=== PATIENT | male | born 1945 | race Caucasian/White ===

== ENCOUNTER 2021-06-01 11:08 | Outpatient (CLI) | payer MEDICARE, OTHER, SELFPAY ==
--- NOTE | 2021-06-01 11:30 | ECG_ITS ---
Measurements Intervals Dwarf Rate: 80 P: 146 MN: 135 QRS: 259 QRSD: 177 T: 64 QT: 444 QTc: 513 Interpretive Statements ELECTRONIC ATRIAL PACEMAKER ELECTRONIC VENTRICULAR PACEMAKER ABNORMAL ECG NO PREVIOUS ECG AVAILABLE FOR COMPARISON Electronically Signed On 06-01-2021 15:20:41 TELEMETRY TECHNICIAN by Ren Norton M.D.
[2021-06-01 12:30] LABS: Anion Gap 5 mmol/L (8-16); Blood Urea Nitrogen 17 mg/dL (9-20); Calcium 9.1 mg/dL (8.4-10.2); Carbon Dioxide 30 mmol/L (22-30); Chloride 103 mmol/L (98-107); Estimated Glomerular Filt Rate > 60; Glucose 169 mg/dL (65-110); Potassium 4.5 mmol/L (3.4-5.0); Sodium 138 mmol/L (137-145)
[2021-06-01 12:31] LABS: INR 1.3; Prothrombin Time 16.1 Seconds (11.1-14.7)
[2021-06-01 12:32] LABS: Partial Thromboplastin Time 34.3 SECONDS (22.3-36.8)
== END 2021-06-01 11:09 | disposition home or self-care (01) ==
LOC: ANHSURGERY 11:18
PROVIDERS: PCP Internal Medicine; Visit Provider Urology
DX: Z01.818 Encounter for other preprocedural examination (principal); N40.0 Benign prostatic hyperplasia without lower urinary tract symptoms; I10 Essential (primary) hypertension; R94.31 Abnormal electrocardiogram [ECG] [EKG]
CPT/HCPCS: 36415; 80048; 85610; 85730; 87086; 93005

== ENCOUNTER 2021-06-13 16:27 | Observation (INO) | payer MEDICARE, OTHER, SELFPAY ==
[2021-05-29 15:55] VITALS: BMI 42.3
--- NOTE | 2021-05-29 16:21 | PC.NURSE ---
Report to the Outpatient Waiting Room, entrance under the green pavilion located off [facility], at time _11:30AM on date __06/12/21 . OR Time: __1:30PM . - You and your visitor will be asked a series of questions to screen for COVID 19 for your protection. - A mask is required within the hospital. Preoperative COVID Testing Requirements: No COVID Test needed if: (proof is required; if not received patient will have Rapid Test prior to entry) - Patient has received COVID Vaccine at least 14 days prior to procedure date or - Patient has positive COVID test result within last 90 days of surgery date. COVID Test needed if above criteria is not met If not COVID vaccinated a COVID test must be conducted within 72 hours of surgery and patient is asked to isolate self from time of testing until procedure. You will go to the [facility] for your COVID testing. The [facility] site is located at the corner of [address] from [facility]. You will only be called if COVID results are positive and your surgeon may reschedule your elective surgery date. Patients may have clear liquids (water, carbonated beverages, clear teas, apple juice) until 3 hours prior to surgery with a maximum of 20 ounces. - No food from midnight until time of surgery - Infants may have breast milk until 4 hours before surgery, formula 6 hours prior to surgery. - Children will be allowed to drink immediately following surgery. If applicable, please bring a bottle or sippy cup to assist with drinking. Juice, water, soda, and popsicles are readily available. For infants on formula, please bring formula the day of surgery. Pacifiers are allowed. Take the following medications with a SIP of water the morning of surgery: __AMLODIPINE, CARVEDILOL, SOTALOL, 1/2 DOSE INSULIN(5 UNITS) Medications to discontinue per physician HOLD ELIQUIS PER DR ROSEN-PATIENT CALLING OFFICE Date to take last dose Please no make-up, nail occitan, hairspray, perfume, deodorant, or body powder the day of surgery. No jewelry (including any body piercings) or valuables the day of surgery, leave them at home. Please take a shower or bath the night before, or the morning of, surgery with an antibacterial soap. Wear comfortable, loose fitting clothing. Children are encouraged to wear pajamas. - Jewelry must be removed prior to entering the operating room. Rings and piercings that are not removed may be cut off. - The hospital will not accept responsibility for valuables. - Please leave all valuables, including medications, at home the day of surgery. If you are going home after surgery, a licensed pizza driver must drive you home. - NO public transportation without another adult. - We recommend that an adult stay with you for 24 hours following discharge. - We also recommend that you do not drive, make important decision, drink alcoholic beverages, or take any drugs that were not prescribed by your health care provider for at least 24 hours after your discharge time. For Pediatric surgeries, we recommend two adults accompany the child home (only one inside the building at this time). One visitor will be allowed to accompany the patient into the hospital. Patients visitor will be instructed to remain with patient at all times or leave the building. We will allow the visitor to come back to the postoperative area when patient is ready. Follow any additional instructions given to you from your surgeon. Telephone instructions given to __PATIENT and asked if any additional questions and then verbalized understanding. Patient advised to call surgeon office or pre surgery nurse liaison [phone] if any additional questions.
[2021-06-12] VITALS (8 sets, daily range): BP systolic 135–171; BP diastolic 73–90; PULSE 79–81; RESP 14–20; TEMP 36–36.5; O2SAT 95–100
--- NOTE | 2021-06-12 13:03 | WPDHPUPDATE1 ---
History and Physical Update Update Date/Time: 06/12/21 13:03 History and Physical has been reviewed, including an updated exam of the patient. There are NO changes in the patient's condition. Risks, benefits, and alternatives have been discussed and questions answered. Patient agrees to proceed with procedure. Proceed with turp
[2021-06-12] MEDS: LACTATED RINGERS 1,000 ML 30 ML IV CONT (13:45)
--- NOTE | 2021-06-12 13:54 | P.PNAN_ITS ---
Anes - Initial Pre Proc Eval Procedure: Operation Date: 06/12/21 13:30 Proposed Procedures p Trans Urethral Resection Prostate - Dakota Holly MD Date/Time: 06/12/21 13:54 Surgeon: Dakota Holly MD Pre Op Diagnosis: bph Patient Data Age: 75 Gender: M Height: 1.75 m Weight: 130 kg Allergies Allergy/AdvReac Type Severity Reaction Status Date / Time Contrast Media Allergy Mild HIVES Uncoded 05/29/21 15:43 Home Medications Medication Instructions Recorded Confirmed Type allopurinol 100 mg PO QAM 05/29/21 05/29/21 History amlodipine 5 mg PO QAM 05/29/21 05/29/21 History apixaban [Eliquis] 5 mg PO BID 05/29/21 05/29/21 History atorvastatin 40 mg PO HS 05/29/21 05/29/21 History carvedilol 25 mg PO BID 05/29/21 05/29/21 History finasteride 5 mg PO HS 05/29/21 05/29/21 History fluticasone propionate 2 spray INTRANASAL DAILY PRN 05/29/21 05/29/21 History furosemide 40 mg PO QAM 05/29/21 05/29/21 History glimepiride 4 mg PO QACLUNCH 05/29/21 05/29/21 History insulin degludec [Tresiba 10 unit SUBCUT QAM 05/29/21 05/29/21 History FlexTouch U-100] lisinopril 20 mg PO BID 05/29/21 05/29/21 History metformin 500 mg PO BID 05/29/21 05/29/21 History montelukast 10 mg PO DAILY 05/29/21 05/29/21 History nitrofurantoin monohyd/m-cryst 100 mg PO BID 05/29/21 05/29/21 History sotalol 80 mg PO BID 05/29/21 05/29/21 History Patient hx anesthesia problems: none Family hx anesthesia problems: none Results Review: All pre-operative results and documents have been reviewed as part of the pre-operative evaluation. FOR[facility]LY [facility] Past Medical History Medical History (Updated 06/12/21 @ 13:56 by Steffen Rubin DO) Atrial fibrillation CHF (congestive heart failure) Diabetes type 2, controlled Hyperlipidemia Hypertension Pacemaker Social History Social History Smoking status: Never smoker Alcohol intake: current Drinks per week: 7 Substance use: never Living arrangements: with family Additional living arrangements comments: SON- LYNN Spiritual care concerns: No Anes - Eval Final PreProcedure Day of Procedure 06/12/21 13:54 Patient weight: morbidly obese Heart: regular rate and rhythm Lungs: clear to auscultation and normal air movement Airway: Mallampati scale class II Neurological: alert and oriented Last oral intake: >/= 8 hours ASA classification: IV Emergent: no Anesthetic plan: proceed Anesthesia type and monitoring: general LMA and standard monitoring Results Review: All pre-operative results and documents have been reviewed as part of the pre-operative evaluation. Informed Consent: The patient's anesthetic plan and its attendant risks and benefits were discussed with the patient/family/POA. Questions were solicited and answers provided to the satisfaction of the patient/family/POA.
[2021-06-12 14:24] LABS: INR 1.1; Prothrombin Time 13.7 Seconds (11.1-14.7)
[2021-06-12 14:24] LABS: Glucose Point of Care 97 mg/dl (65-105)
[2021-06-12] MEDS: ceFAZolin 3 GM/D5W 100 ML 100 ML IVPB (15:21)
[2021-06-12] MEDS: LIDOCAINE HCL 2% GEL UROJET 10 ML PKG MUCOUS MEM (16:22)
--- NOTE | 2021-06-12 16:25 | P.OP_ITS ---
Procedure Note - Detailed Date of Procedure 06/12/21 Pre-op Diagnosis bph Post-op Diagnosis Same Procedure Performed Transurethral resection of prostate, urethral dilation Surgeon Dakota Holly MD Anesthesia General Description of Procedure Patient is taken to the operative suite and correctly identified. Once anesthesia was obtained was placed in dorsal lithotomy position and prepped and draped usual sterile fashion. Urethra was dilated up to 28 Hungarian. Twenty-four Hungarian resectoscope sheath was inserted in the bladder. He has marked trabeculation. Both ureteral orifices were visualized at all times. He has a fairly good sized median lobe. We took down the median lobe and then the lateral lobes from the bladder neck to the verumontanum. There appeared to be an open prostatic channel at termination. Hemostasis was achieved using electrocautery. Prostatic chips were sent for pathologic review. 2% viscous lidocaine was inserted into the urethra. Twenty-four Hungarian [address] was then placed and inflated with 30 cc of saline. This was connected to continuous bladder irrigation and patient is taken recovery stable condition. Estimated Blood Loss 50 Drains Yes Packing No Pathology Yes Complications No immediate complications Condition Stable Disposition PACU
[2021-06-12 16:55] LABS: Glucose Point of Care 82 mg/dl (65-105)
[2021-06-12] MEDS: DOCUSATE SODIUM 100 MG CAPSULE PO (18:01)
[2021-06-13] VITALS (9 sets, daily range): BP systolic 149–170; BP diastolic 63–90; PULSE 80–81; RESP 16–20; TEMP 36.1–36.7; O2SAT 94–100
[2021-06-13 06:04] LABS: Hematocrit 42.8 % (42.0-52.0); Hemoglobin 14.2 g/dL (14.0-18.0)
[2021-06-13 06:16] LABS: Anion Gap 5 mmol/L (8-16); Blood Urea Nitrogen 14 mg/dL (9-20); Calcium 8.5 mg/dL (8.4-10.2); Carbon Dioxide 28 mmol/L (22-30); Chloride 103 mmol/L (98-107); Estimated CRCL calculation 85 ml/min; Estimated Glomerular Filt Rate > 60; Glucose 141 mg/dL (65-110); Potassium 4.5 mmol/L (3.4-5.0); Sodium 136 mmol/L (137-145)
--- NOTE | 2021-06-13 07:50 | WPDANESPN ---
Anes - Prog Note Post-Op Date/Time: 06/13/21 07:50 Cardiovascular status: normal Respiratory status: normal Airway patency: baseline Mental status: baseline Post-Op hydration status: normal Vital Signs: Last Vital Signs Temp 98.1 F 06/13/21 04:18 Pulse 81 06/13/21 04:18 Resp 20 06/13/21 04:18 BP 152/73 H 06/13/21 04:18 Pulse Ox 98 06/13/21 04:18 Pain Score (VAS): 04/02 I/O: Intake & Output 06/12/21 06/12/21 06/13/21 15:59 23:59 07:59 Intake Total 100 700 100 Output Total 2100 2400 Balance 100 -1400 -2300 Laboratory Tests 06/13/21 05:31 06/13/21 05:31 06/12/21 06/12/21 06/12/21 13:38 14:19 16:44 Hgb Hct PT 13.7 INR 1.1 Sodium Potassium Chloride Carbon Dioxide Anion Gap BUN Creatinine Estim Creat Clear Calc Estimated GFR Glucose POC Capillary Glucose 97 82 Calcium 06/13/21 06/13/21 05:31 05:31 Hgb 14.2 Hct 42.8 PT INR Sodium 136 L Potassium 4.5 Chloride 103 Carbon Dioxide 28 Anion Gap 5 L BUN 14 Creatinine 0.90 Estim Creat Clear Calc 85 Estimated GFR > 60 Glucose 141 H POC Capillary Glucose Calcium 8.5 Post-procedural complaints: none Patient Feedback: Patient satisfied with anesthetic care.
[2021-06-13] MEDS: DOCUSATE SODIUM 100 MG CAPSULE PO ×2 (08:43→17:10)
[2021-06-13 12:05] LABS: Glucose Point of Care 115 mg/dl (65-105)
[2021-06-13] MEDS: SOTALOL HCL 80 MG TABLET PO ×2 (12:56→20:33)
[2021-06-13] MEDS: carvediloL 25 MG TABLET PO ×2 (12:58→20:32)
[2021-06-13] MEDS: amLODIPine BESYLATE 5 MG TABLET PO (12:58)
[2021-06-13] MEDS: lisinopriL 20 MG TABLET PO ×2 (12:58→20:32)
[2021-06-13] MEDS: GLIMEPIRIDE 2 MG TABLET 4 MG PO (12:58)
[2021-06-13] MEDS: MONTELUKAST SODIUM 10 MG TABLET PO (12:58)
[2021-06-13] MEDS: FUROSEMIDE 40 MG TABLET PO (12:58)
[2021-06-13] MEDS: ONDANSETRON INJ 4 MG/2 ML VIAL IV PUSH (13:10)
[2021-06-13] MEDS: CEPHALEXIN 500 MG CAPSULE PO ×3 (13:12→20:32)
--- NOTE | 2021-06-13 15:49 | WPDUROPN2 ---
Progress Note: A&P Assessment and Plan (1) BPH (benign prostatic hyperplasia): Code(s): N40.0 - Benign prostatic hyperplasia without lower urinary tract symptoms Status: Acute (2) Gross hematuria: Code(s): R31.0 - Gross hematuria Status: Acute Assessment and Plan: Continue CBI until urine is clear, then wean to off. If bleeding starts again, re-start CBI. (3) Vomiting: Code(s): R11.10 - Vomiting, unspecified Status: Acute Assessment and Plan: Ok to give Ondansetron PRN, eat small light meals and continue IV fluids for now, until PO intake increases. Will keep overnight and re-assess tomorrow. Subjective Subjective Date/Time Seen: 06/13/21 15:49 POD #1 TURP and urethral dilation Patient is doing well tolerating pain. He is having some nausea and vomiting this afternoon as well as gross hematuria on CBI. Review of Systems Cardiovascular: Cardiovascular: Denies chest pain Respiratory: Respiratory: Reports no additional respiratory complaints Gastrointestinal: Gastrointestinal: Denies abdominal pain, Reports nausea and Reports vomiting Genitourinary: Genitourinary: Reports hematuria and Denies flank pain Exam Resp: Effort & Inspection: normal respiratory effort Cardio: Rate: regular rate GI: GI Palp: Yes Soft to palpation and No Tenderness to palpation present (GI) : General: Yes no CVA tenderness Urinary Catheter: Urinary Catheter: patent and draining and urine red Extrem: General: no edema Objective Data Vital Signs Vital Signs: Vital Signs - 24 hr 06/12/21 16:33 06/12/21 16:45 06/12/21 17:00 Temperature 97.5 F L Pulse Rate 79 80 80 Respiratory Rate 16 16 14 Blood Pressure 135/88 137/90 141/86 H Pulse Oximetry 100 100 98 06/12/21 17:15 06/12/21 19:18 06/12/21 20:18 Temperature 96.8 F L 96.8 F L Pulse Rate 80 80 80 Respiratory Rate 16 16 16 Blood Pressure 136/90 169/86 H 169/86 H Pulse Oximetry 96 96 96 06/12/21 23:25 06/13/21 04:18 06/13/21 10:30 Temperature 97.7 F 98.1 F 97.0 F L Pulse Rate 81 81 80 Respiratory Rate 20 20 20 Blood Pressure 171/73 H 152/73 H 170/90 H Pulse Oximetry 95 98 100 06/13/21 12:56 06/13/21 12:58 06/13/21 14:30 Temperature 97.9 F Pulse Rate 81 81 80 Respiratory Rate 18 Blood Pressure 160/74 H Pulse Oximetry 96 Intake/Output Intake/Output: Intake & Output 06/10/21 06/11/21 06/12/21 06/13/21 23:59 23:59 23:59 23:59 Intake Total 800 700 Output Total 2100 2400 Balance -1300 -1700 Meds/Results Medications: Active Medications Generic Name Dose Route Start Last Admin Trade Name Freq PRN Reason Stop Dose Admin Hydrocodone Bitart/Acetaminophen 1 tab 06/12/21 16:30 Hydrocodone/Acetaminophen (*Crx) 5-325 Mg Tablet PO Q4H PRN Pain Rated 1-6 Amlodipine Besylate 5 mg 06/13/21 11:30 06/13/21 12:58 Amlodipine Besylate 5 Mg Tablet PO 5 mg QAM MARIUSZ Administration Atorvastatin Calcium 40 mg 06/13/21 21:00 Atorvastatin 40 Mg Tablet PO HS MARIUSZ Carvedilol 25 mg 06/13/21 11:30 06/13/21 12:58 Carvedilol 25 Mg Tablet PO 25 mg Q12HR MARIUSZ Administration Cephalexin HCl 500 mg 06/13/21 13:00 06/13/21 13:12 Cephalexin 500 Mg Capsule PO 500 mg QID MARIUSZ Administration Dextrose 12.5 gm 06/13/21 11:58 Dextrose 50% 25 Gm/50 Ml Syringe IV PUSH PRN PRN Hypoglycemia Protocol Docusate Sodium 100 mg 06/12/21 17:00 06/13/21 08:43 Docusate Sodium 100 Mg Capsule PO 100 mg BID MARIUSZ Administration Fluticasone Propionate 2 spray 06/13/21 11:30 Fluticasone Propionate 0.05% Na Spr 16 Gm Btl (*Bkc) NASAL DAILY PRN Congestion Furosemide 40 mg 06/13/21 11:30 06/13/21 12:58 Furosemide 40 Mg Tablet PO 40 mg QAM MARIUSZ Administration Glimepiride 4 mg 06/13/21 12:00 06/13/21 12:58 Glimepiride 2 Mg Tablet PO 4 mg NOON MARIUSZ Administration Glucagon 1 mg 06/13/21 11:58 Glucagon
[2021-06-13 16:40] LABS: Glucose Point of Care 146 mg/dl (65-105)
[2021-06-13] MEDS: metFORMIN HCL XR 500 MG TAB.SR.24H PO (17:08)
[2021-06-13] MEDS: ATORVASTATIN 40 MG TABLET PO (20:32)
[2021-06-13 21:14] LABS: Glucose Point of Care 119 mg/dl (65-105)
[2021-06-14 00:41] VITALS: BP 135/72; PULSE 83; RESP 18; TEMP 36.6; O2SAT 96
[2021-06-14 04:00] VITALS: BP 151/70; PULSE 80; RESP 16; TEMP 36.2; O2SAT 93
[2021-06-14 07:41] LABS: Glucose Point of Care 151 mg/dl (65-105)
[2021-06-14 08:00] VITALS: BP 141/72; PULSE 80; RESP 12; TEMP 36.6; O2SAT 96
[2021-06-14] MEDS: CEPHALEXIN 500 MG CAPSULE PO ×2 (08:26→12:00)
[2021-06-14] MEDS: metFORMIN HCL XR 500 MG TAB.SR.24H PO (08:26)
[2021-06-14 08:27] VITALS: PULSE 79
[2021-06-14] MEDS: amLODIPine BESYLATE 5 MG TABLET PO (08:27)
[2021-06-14] MEDS: carvediloL 25 MG TABLET PO (08:27)
[2021-06-14 08:28] VITALS: PULSE 79
[2021-06-14] MEDS: lisinopriL 20 MG TABLET PO (08:28)
[2021-06-14] MEDS: FUROSEMIDE 40 MG TABLET PO (08:28)
[2021-06-14] MEDS: SOTALOL HCL 80 MG TABLET PO (08:28)
[2021-06-14] MEDS: MONTELUKAST SODIUM 10 MG TABLET PO (08:28)
[2021-06-14] MEDS: DOCUSATE SODIUM 100 MG CAPSULE PO (08:30)
[2021-06-14 10:00] VITALS: BP 138/73; PULSE 80; RESP 12; TEMP 36.6; O2SAT 96
[2021-06-14 11:40] LABS: Glucose Point of Care 129 mg/dl (65-105)
[2021-06-14] MEDS: GLIMEPIRIDE 2 MG TABLET 4 MG PO (11:51)
--- NOTE | 2021-06-14 13:17 | PC.NURSE ---
On 06/14/21, the student, [Lexa Brady, Mick Bai], provided care and completed Slide documentation on this patient. I have reviewed the student's documentation and agree with the findings.
--- NOTE | 2021-06-14 13:29 | WPDUROPN2 ---
Progress Note: A&P Assessment and Plan (1) BPH (benign prostatic hyperplasia): Code(s): N40.0 - Benign prostatic hyperplasia without lower urinary tract symptoms Status: Acute Assessment and Plan: Ok to discharge home with mabry, ok to attch leg bag. Patient to f/u on Friday for cath removal. (2) Gross hematuria: Code(s): R31.0 - Gross hematuria Status: Acute Assessment and Plan: Resolved (3) Vomiting: Code(s): R11.10 - Vomiting, unspecified Status: Acute Assessment and Plan: Resolved. Subjective Subjective Date/Time Seen: 06/14/21 13:29 POD#2 TUPR with urethral dilation. Urine has cleared off CBI overnight. His nausea and vomiting has also resolved. He is managing pain, diet and activity well. Review of Systems Cardiovascular: Cardiovascular: Denies chest pain Respiratory: Respiratory: Reports no additional respiratory complaints Gastrointestinal: Gastrointestinal: Denies abdominal pain, Denies nausea and Denies vomiting Genitourinary: Genitourinary: Denies hematuria, Denies flank pain and Denies testicular pain Exam Resp: Effort & Inspection: normal respiratory effort Cardio: Rate: regular rate GI: GI Palp: Yes Soft to palpation and Yes Tenderness to palpation present (GI) : General: Yes no CVA tenderness Urinary Catheter: Urinary Catheter: patent and draining and urine clear Extrem: General: no edema Objective Data Vital Signs Vital Signs: Vital Signs - 24 hr 06/13/21 14:30 06/13/21 18:10 06/13/21 20:18 Temperature 97.9 F 98.0 F 97.3 F L Pulse Rate 80 80 80 Respiratory Rate 18 16 16 Blood Pressure 160/74 H 150/63 H 149/73 H Pulse Oximetry 96 95 94 06/13/21 20:32 06/13/21 20:33 06/14/21 00:41 Temperature 97.8 F Pulse Rate 80 80 83 Respiratory Rate 18 Blood Pressure 135/72 Pulse Oximetry 96 06/14/21 04:00 06/14/21 08:00 06/14/21 08:27 Temperature 97.1 F L 97.8 F Pulse Rate 80 80 79 Respiratory Rate 16 12 Blood Pressure 151/70 H 141/72 H Pulse Oximetry 93 96 06/14/21 08:28 06/14/21 10:00 Temperature 97.8 F Pulse Rate 79 80 Respiratory Rate 12 Blood Pressure 138/73 Pulse Oximetry 96 Intake/Output Intake/Output: Intake & Output 06/11/21 06/12/21 06/13/21 06/14/21 23:59 23:59 23:59 23:59 Intake Total 800 1640 630 Output Total 2100 3800 900 Balance -1300 -2160 -270 Labs Labs: Laboratory Results - last 24 hr 06/13/21 06/13/21 06/14/21 16:38 20:39 07:37 POC Capillary Glucose 146 H 119 H 151 H 06/14/21 11:37 POC Capillary Glucose 129 H
--- NOTE | 2021-06-14 14:29 | PM.DS ---
DS: Admitting Diagnosis Discharge Date 06/14/21 Admitting Diagnosis BPH, urethral dilation DS: Discharge Diagnosis Discharge Diagnosis (1) BPH (benign prostatic hyperplasia): Code(s): N40.0 - Benign prostatic hyperplasia without lower urinary tract symptoms Status: Acute DS: Summary Hospital Course Hospital Course: see note below Time Spent with Patient Time attestation: Total time spent providing and/or coordinating discharge services:30 minutes Pre-OP Diagnosis: BPH, Urethral Diagnosis Post Op Diagnosis: BPH, Urethral Diagnosis The patient underwent a TURP and urethral dilation on 06/12/[address] Holly. He tolerated the procedure well and went to recovery in stable condition, then to the floor for further observation. On POD#1 he endured gross hematuria on CBI, and some post op nausea and vomiting. Both subsided overnight last night. Urine is now clear off CBI and his nausea/vomiting is resolved. He will be discharged home to follow up on Friday for a catheter removal. He will resume a diet as tolerated, activity as tolerated, no straining, and home meds except his anti-coagulant which he will hold until Friday's appointment after his catheter removal. He will call the office or go to the ER if he experiences any post op bleeding, fevers, or a catheter that isn't draining. Exam Resp: Effort & Inspection: normal respiratory effort Cardio: Rate: regular rate GI: GI Palp: Yes Soft to palpation and No Tenderness to palpation present (GI) : General: Yes no CVA tenderness Urinary Catheter: Urinary Catheter: patent and draining and urine clear Extrem: General: no edema DS: Data Data Completed and Pending Completed studies during hospitalization: Pending at discharge 06/12/21 15:49 Surgical [PTH] Routine Labs on day of discharge: Labs from last 24 hours 06/14/21 06/14/21 06/13/21 11:37 07:37 20:39 POC Capillary Glucose 129 H 151 H 119 H 06/13/21 16:38 POC Capillary Glucose 146 H Discharge Plan Discharge Attending physician on discharge: Dakota Holly Discharging Clinician: Yasmeen Preston Anticipated Discharge Date/Time: 06/14/21 10:16 Patient Disposition: Home, Self-Care Activity: may shower Diet: as tolerated Discharge Instructions: You will follow up Friday06/18/21 at 10:30am with Yasmeen SCHERER for your catheter removal. Call the office or go to the ER if you develop blood in your urine, a fever or your catheter stops draining. Do not lift >20lbs or do any strenuous exercise for 2-[address] until after your catheter is removed if at all possible. Patient Instructions: Antibiotic Form Stand Alone Forms: General Discharge Information Follow-up/Referrals: Dakota Holly MD [Physician] - Discharge Medications: New hyoscyamine sulfate [Anaspaz] 0.125 mg Tablet,Disintegrating 0.125 mg sublingual Q6H PRN (Reason: Bladder Spasm) Qty: 20 RF: 0 cephalexin 500 mg Capsule 500 mg PO BID 5 Days Qty: 10 RF: 0 hydrocodone-acetaminophen 5-325 mg tablet 1 tablet PO Q4H PRN (Reason: pain) Qty: 20 RF: 0 Continued furosemide 40 mg tablet 40 mg PO QAM RF: 0 atorvastatin 40 mg tablet 40 mg PO HS RF: 0 carvedilol 25 mg tablet 25 mg PO BID RF: 0 sotalol 80 mg tablet 80 mg PO BID RF: 0 lisinopril 20 mg tablet 20 mg PO BID RF: 0 amlodipine 5 mg tablet 5 mg PO QAM RF: 0 allopurinol 100 mg tablet 100 mg PO QAM RF: 0 glimepiride 4 mg tablet 4 mg PO QACLUNCH RF: 0 montelukast 10 mg tablet 10 mg PO DAILY RF: 0 fluticasone propionate 50 mcg/actuation spray,suspension 2 spray INTRANASAL DAILY PRN (Reason: Congestion) RF: 0 metformin 500 mg tablet extended release 24 hr 500 mg PO BID RF: 0 finasteride 5 mg tablet 5 mg PO HS RF: 0 Tresiba FlexTouch U-100 100 unit/mL (3 mL) insulin pen 10 unit SUBCUT QAM RF: 0 Held
== END 2021-06-14 12:43 | disposition home or self-care (01) ==
LOC: ANHSURGERY 16:42 → ANH2MED 16:43
PROVIDERS: Admitting Provider Urology; PCP Internal Medicine; Visit Provider Urology
PROC: 0VT08ZZ Resection of Prostate, Via Natural or Artificial Opening Endoscopic (ICD-10-PCS; CPT 52601; principal; 2021-06-12 13:30)
DX: N40.1 Benign prostatic hyperplasia with lower urinary tract symptoms (principal); R35.0 Frequency of micturition; R97.20 Elevated prostate specific antigen [PSA]; I10 Essential (primary) hypertension; R11.10 Vomiting, unspecified; N28.89 Other specified disorders of kidney and ureter; Z79.899 Other long term (current) drug therapy
CPT/HCPCS: 52601; 36415; 80048; 82948; 85014; 85018; 85610; 88305; A9270; G0378; J0690; J1100; J2405; J2704; J3010; J7120

== ENCOUNTER 2021-08-14 09:54 | Outpatient (CLI) | payer MEDICARE, OTHER, SELFPAY ==
--- NOTE | 2021-08-14 11:15 | NEURO_ITS ---
Impression: # Complains of numbness of anterior thigh on right. Known diabetic. # Sensory neuropathy. # Right thigh could not be tested; could be related to neuropathy involving lateral cutaneous nerve of thigh. # Needle/EMG exam not requested. Nerve Conduction Studies Anti Sensory Summary Table Stim Site NR Peak (ms) P-T Amp (?V) Site1 Site2 Delta-P (ms) Dist (cm) Dawson (m/s) Left Sup Fibular Anti Sensory (Ant Lat Mall) NO RESPONSE 14 cm NR 14 cm Ant Lat Mall 16.0 Right Sup Fibular Anti Sensory (Ant Lat Mall) NO RESPONSE 14 cm NR 14 cm Ant Lat Mall 16.0 Left Sural Anti Sensory (Lat Mall) NO RESPONSE Calf NR Calf Lat Mall 16.0 Right Sural Anti Sensory (Lat Mall) NO RESPONSE Calf NR Calf Lat Mall 16.0 Motor Summary Table Stim Site NR Onset (ms) O-P Amp (mV) Site1 Site2 Delta-0 (ms) Dist (cm) Dawson (m/s) Left Peroneal Motor (Vastus Med) Ankle 4.5 1.4 Popit Ankle 8.8 39.0 44 Popit 13.3 1.7 Right Peroneal Motor (Vastus Med) Ankle 4.4 1.9 Popit Ankle 9.8 39.0 40 Popit 14.2 1.7 Left Tibial Motor (Abd Sneed Brev) Ankle 4.9 1.9 Knee Ankle 10.5 43.0 41 Knee 15.4 1.3 Right Tibial Motor (Abd Sneed Brev) Ankle 4.6 3.2 Knee Ankle 9.3 42.0 45 Knee 13.9 3.3 F Wave Studies NR F-Lat (ms) L-R F-Lat (ms) Left Peroneal (Mrkrs) (EDB) 54.40 0.25 Right Peroneal (Mrkrs) (EDB) 54.65 0.25 Left Tibial (Mrkrs) (Abd Hallucis) 55.75 0.20 Right Tibial (Mrkrs) (Abd Hallucis) 55.95 0.20 MTDD
== END 2021-08-14 09:55 | disposition home or self-care (01) ==
LOC: ANHNEURO 09:55
PROVIDERS: PCP Internal Medicine; Visit Provider Internal Medicine
DX: G62.9 Polyneuropathy, unspecified (principal)
CPT/HCPCS: 95910

== ENCOUNTER 2022-01-23 11:08 | Outpatient (RCR) | payer MEDICARE, OTHER, SELFPAY ==
--- NOTE | 2022-01-23 12:33 | PTOPEVAL1 ---
Assessment and note entered by Mary Granger, PT Evaluation Information Assessment Status Evaluation Diagnosis L Sciatica Onset 01/18/22 Subjective Information Cristi reports he started having L buttock pain about 6-7 months ago. He notes the pain has become more frequent. He notes pain occurs with sitting or driving for long periods. He notes the pain goes away when he stands up, uses heat, or makes a fist and puts pressure on the painful area. He states he needs a left knee replacement though and he can't stand too long. He is having difficulty laying on his left side which makes sleeping difficult. He has been sleeping in a recliner to get relief. Reported Pain Level Pain Score 6: Self Report Assessment PT Clinical Summary Cristi Broussard presents with left buttock pain that has gradually worsened over the last 6-7 months. He notes pain with prolonged sitting and driving as well as laying on his left side. He is having difficulty sleeping, sitting, and driving. He objectively demonstrates decreased lumbar AROM, decreased core strength, decreased hamstring and piriformis flexibility, and palpable tenderness on the left piriformis. Repeated flexion and extension does not change symptoms. He will benefit from skilled PT to address the above physical and functional limitations. Plan of Care Interventions Hot Pack/Cold Pack,Manual Therapy,Neuro Re- education,Patient/Caregiver Educati,Therapeutic Activities,Therapeutic Exercise PT Services Indicated Yes Treatment Frequency and 2 times a week for 10 visits Duration These treatments will address the objective and functional deficits as defined above. The patient will be advanced safely and appropriately in order for the patient to progress towards his/her prior level of function. Additional exercises will be introduced and as well as a comprehensive home exercise program upon discharge, if needed, ?to ensure carryover of functional gains achieved in the clinic. This treatment plan has been reviewed and agreement upon by the patient.
--- NOTE | 2022-03-05 11:50 | PTOPEVAL1 ---
Assessment and note entered by Mary Granger, PT Evaluation Information Assessment Status Discharge Diagnosis L Sciatica Onset 01/18/22 Subjective Information Cristi Broussard reports he is feeling better. He notes the pain does still come on in the evening after being up and doing stuff around the house. He is able to sit on a heating pad to relieve pain . He also notes pain if he crosses the left leg in . He feels he has improved 70-75% overall since initiating PT and that he can continue independently with his home exercises. Reported Pain Level Pain Score 2: Self Report Assessment PT Clinical Summary Cristi Broussard has completed 10 physical therapy sessions for left buttock pain. He is reporting a 70-75% overall improvement in pain and function since initiating PT. He still has pain in the evening and if he crosses his left leg in too long . He objectively demonstrates improved lumbar AROM with no pain elicited, improved hamstring and piriformis flexibility, resolved tenderness, and improved tolerance to daily activities. Plan of Care PT Services Indicated No These treatments will address the objective and functional deficits as defined above. The patient will be advanced safely and appropriately in order for the patient to progress towards his/her prior level of function. Additional exercises will be introduced and as well as a comprehensive home exercise program upon discharge, if needed, ?to ensure carryover of functional gains achieved in the clinic. This treatment plan has been reviewed and agreement upon by the patient.
== END 2022-03-05 13:31 | disposition home or self-care (01) ==
LOC: CHSPT 11:08
PROVIDERS: Visit Provider Internal Medicine
DX: M54.32 Sciatica, left side (principal)
CPT/HCPCS: 97110; 97140; 97161

== ENCOUNTER 2023-03-18 01:38 | Emergency (ER) | payer MEDICARE, OTHER, SELFPAY ==
[2023-03-18] VITALS (35 sets, daily range): BP systolic 109–154; BP diastolic 80–104; PULSE 77–95; RESP 20–22; TEMP 35.9–37.2; O2SAT 90–99
--- NOTE | ~2023-03-18 | CT_ITS ---
EXAMINATION: CT abdomen pelvis w con DATE: 03/18/2023 02:58 INDICATION: Abdominal pain and distention. TECHNIQUE: Computed tomography (CT) of the abdomen and pelvis was performed with 100 mL Omnipaque 350 intravenous contrast. Automated exposure control and iterative reconstruction technique were employe d. The dose-length product was 1594.63 mGy-cm. COMPARISON: CT abdomen and pelvis 05/17/2011 FINDINGS: The visualized portions of the lung bases demonstrate mild atelectasis and scarring. There is mild bronchiectasis bilaterally. There is a small right pleural effusion. There is a trace left pl eural effusion. Cardiomegaly is noted. There are coronary artery calcifications. No pericardial effus ion. There are pacer wires in right atrium, right ventricle, and coronary sinus. The liver and spleen are normal. There is a gallstone in the gallbladder, which is normal in size. The pancreas and adren al glands are normal. There are changes of ablation of right kidney. There is a 2.3 cm cyst in left k idney. The prostate is moderately enlarged. There is prominent fat in the inguinal canals that may be hernias. There is diverticulosis of the colon without evidence of diverticulitis. The appendix is no rmal. There is a small volume of ascites. There are a few scattered foci of free intraperitoneal gas. There is an ulcer of the distal gastric antrum. There are no pathologically enlarged lymph nodes. Th ere is severe lumbar spondylosis. Lumbar levoscoliosis is noted. There are bridging endplate osteophy corinne at multiple levels in the thoracic spine, consistent with diffuse idiopathic skeletal hyperostosi s (DISH). IMPRESSION: 1. Free intraperitoneal gas, consistent with perforated viscus. I discussed this finding with Dr. Maggi cartwright. 2. Small volume of ascites. 3. Ulcer of the distal gastric antrum. 4. Small right pleural effusion. Reviewed, dictated and finalized at location E. EWATER PROJECT MANAGER IMPRESSION: 1. Free intraperitoneal gas, consistent with perforated viscus. I discussed thi s finding with Dr. Buschling. 2. Small volume of ascites. 3. Ulcer of the distal gastric antrum. 4. Small right pleural effusion.
--- NOTE | 2023-03-18 01:43 | ECG_ITS ---
Measurements Intervals [place] Rate: 97 P: RI: 0 QRS: 259 QRSD: 181 T: 72 QT: 449 QTc: 573 Interpretive Statements ELECTRONIC VENTRICULAR PACEMAKER ABNORMAL RHYTHM ECG COMPARED TO ECG 06/01/2021 11:52:20 NO SIGNIFICANT CHANGES Electronically Signed On 03-18-2023 15:51:48 [employer] by Shaheen Sanchez M.D.
--- NOTE | 2023-03-18 01:43 | ED.GENADULT ---
HPI - General Adult General Chief complaint: Abdominal Pain Stated complaint: abdominal pain, distended abd History of Present Illness HPI narrative: Cristi is a 77M with a PMH of gout, HTN, HLD, diabetes, pacemaker that presented to the ED via EMS with abdominal pain and distension. He has had pain for a few days as well as worsening distension but over the last 4-5 hours it has become much worse. He has felt like he needs to belch or vomit but he only had 1 episode of non-bloody vomiting. He has not had a BM for 2 days and he has not felt like eating either. He states it is hard to breath as he is so distended he cannot take a deep breath. There is no chest pain or fevers. He reports an allergy to MRI contrast but not CT contrast. Related Data Home Medications Medication Instructions Recorded Confirmed allopurinol 100 mg tablet 100 mg PO QAM 05/29/21 03/18/23 amlodipine 5 mg tablet 5 mg PO QAM 05/29/21 03/18/23 apixaban 5 mg tablet (Eliquis) 5 mg PO BID 05/29/21 03/18/23 atorvastatin 40 mg tablet 40 mg PO HS 05/29/21 03/18/23 carvedilol 25 mg tablet 25 mg PO BID 05/29/21 03/18/23 furosemide 40 mg tablet 40 mg PO QAM 05/29/21 03/18/23 glimepiride 4 mg tablet 4 mg PO QACLUNCH 05/29/21 03/18/23 insulin degludec 100 unit/mL (3 10 unit subcut QAM 05/29/21 03/18/23 mL) subcutaneous pen (Tresiba FlexTouch U-100 insulin) lisinopril 20 mg tablet 20 mg PO BID 05/29/21 03/18/23 metformin 500 mg tablet,extended 500 mg PO BID 05/29/21 03/18/23 release 24 hr montelukast 10 mg tablet 10 mg PO DAILY 05/29/21 03/18/23 sotalol 80 mg tablet 80 mg PO BID 05/29/21 03/18/23 Allergies Allergy/AdvReac Type Severity Reaction Status Date / Time Contrast Media Allergy Mild HIVES Uncoded 06/12/21 14:29 Review of Systems Review of Systems: All systems reviewed & are unremarkable except as noted in HPI and below PMFSH Past Medical History Medical History Atrial fibrillation CHF (congestive heart failure) Diabetes type 2, controlled Hyperlipidemia Hypertension Pacemaker Social History Social History Smoking status: Never smoker Alcohol intake: current Drinks per week: 7 Substance use: never Living arrangements: with family Additional living arrangements comments: SON- LYNN Spiritual care concerns: No Exam Const: General: cooperative, well developed, alert, awake and Physically active Orientation/consciousness: oriented to person, oriented to place and oriented to time HENMT: Head: normal to inspection, normocephalic and atraumatic Ears: hearing grossly normal bilaterally and external ears normal Face/Nose/Sinus: Normal external nose present Eyes: General: appearance normal, both eyes and all related structures Periorbital: periorbital findings normal Sclera: sclerae normal Pupils: Equal, round and reactive pupils present Neck: Neck: normal visual inspection Chest: Chest palpation & inspection: normal inspection of the chest Resp: Effort & Inspection: normal respiratory effort, able to speak in complete sentences and no respiratory distress Auscultation: clear to auscultation bilaterally Cardio: Jugular venous distension: no JVD Rate: regular rate Rhythm: regular rhythm GI: Inspection: distended GI Palp: Yes Rigid due to palpation Auscultation: Hypoactive bowel sounds present Other: Very distended abdomen that was diffusely TTP with hypoactive bowel sounds Back/Spine/Pelvis: Back: no CVA tenderness Skin: General skin exam: normal color and no rashes or lesions noted Neuro: General: oriented to person, oriented to place and oriented to time Cranial nerves: Yes Equal, round and reactive pupils present Extrem: General: normal to inspection Psych: Mental Status: mental status grossly normal Course Course Emergency Course: Ordered labs, IV, normal saline, UA, CT abd/pelvis w/ con
[2023-03-18] MEDS: SODIUM CHLORIDE 0.9% IV 1,000 ML 999 ML IV CONT (02:01)
[2023-03-18] MEDS: MORPHINE SULFATE (*CRX) 4 MG/ML INJ IV PUSH ×2 (02:02→04:50)
[2023-03-18 02:15] LABS: Basophils Absolute Auto 0.03 K/mm3 (0.00-0.10); Basophils Percent Auto 0.2 % (0.0-1.0); Eosinophils Absolute Auto 0.12 K/mm3 (0.02-0.50); Eosinophils Percent Auto 0.9 % (1.0-6.0); Hematocrit 49.9 % (37.0-46.0); Hemoglobin 16.1 g/dL (12.4-15.3); Immature Granulocyte Absolute 0.04 K/mm3 (0.00-0.00); Immature Granulocyte Percent A 0.3 % (0.0-0.0); Lymphocytes Percent Auto 8.5 % (18.0-42.0); Mean Corpuscular HGB Conc 32.3 g/dL (32.0-36.0); Mean Corpuscular Hemoglobin 31.6 pg (27.0-31.0); Monocytes Absolute Auto 0.64 K/mm3 (0.10-0.90); Neutrophils Percent Auto 85.1 % (50.0-70.0); Platelet Count Result 190 K/mm3 (150-420); Red Blood Count 5.09 M/mm3 (4.70-6.10); Red Cell Distribution Width 12.9 % (11.6-14.4); White Blood Count 12.9 K/mm3 (4.8-10.8)
[2023-03-18] MEDS: ONDANSETRON INJ 4 MG/2 ML VIAL (02:15)
[2023-03-18 02:29] LABS: INR 1.5; Prothrombin Time 15.9 Seconds (9.50-12.10)
[2023-03-18 02:34] LABS: Alanine Aminotransferase 23 U/L (16-63); Albumin Level 3.7 g/dL (3.4-5.0); Alkaline Phosphatase 75 U/L (46-116); Anion Gap 7 mmol/L (8-16); Aspartate Amino Transferase 17 U/L (15-37); Bilirubin,Total 1.6 mg/dL (0.00-1.00); Blood Urea Nitrogen 17 mg/dL (7-18); CRP < 0.5 mg/dL (0.0-0.9); Carbon Dioxide 30 mmol/L (21-32); Chloride 98 mmol/L (98-108); Estimated CRCL calculation 55 ml/min; Estimated Glomerular Filt Rate 52; Glucose 203 mg/dL (70-99); Lipase 20 U/L (16-77); Osmolality Calculated 287 mOsm/kg (285-295); Potassium 4.4 mmol/L (3.5-5.1); Sodium 135 mmol/L (136-145); Total Protein 7.6 g/dL (6.4-8.2); Troponin I 12.4 ng/L (0.00-60.4)
[2023-03-18 02:37] LABS: Lactic Acid Reflex 2.2 mmol/L (0.4-2.0)
[2023-03-18] MEDS: cefTRIAXone 2 GM/NS 100 ML 2 GM/100 ML BAG IVPB (03:58)
[2023-03-18] MEDS: metroNIDAZOLE 500 MG/ISO 100ML 500 MG/100 ML BAG 100 MG IVPB (04:21)
[2023-03-18 05:13] LABS: Reflex Lactic Acid Yes or No Add Lactic
[2023-03-18 06:12] LABS: Lactic Acid 2.1 mmol/L (0.4-2.0)
--- NOTE | 2023-03-18 06:16 | PC.NURSE ---
[phone] call from kobi proctorsenior data warehouse developer. wanting pt to have ng tube and needs icu bed. informed pt had already departed our facility prior to dr garrett speaking with dr bourgeois.
[2023-03-18 06:20] LABS: Appearance Urine Clear (Clear); Bilirubin Urine Negative (Negative); Blood Urine 3+ (Negative); Color Urine Yellow (Yellow); Glucose Urine UA Negative (Negative); Ketones Urine Negative (Negative); Leukocyte Esterase Ur Trace LEU/UL (Negative); Nitrate Urine Positive (Negative); Protein Urine Trace (Negative); Urobilinogen Urine 0.2 mg/dL (0.2-1.0); pH Urine 5.5 (5.0-8.0)
[2023-03-18 06:28] LABS: Add Urine Microscopic? YES; Bacteria Urine 3+ /hpf; Squamous Epithelial Cell Urine Occasional /hpf (Few)
[2023-03-18 06:58] LABS: Glucose Point of Care 184 mg/dl (65-105)
--- NOTE | 2023-03-18 07:08 | PC.NURSE ---
[phone] call from esthela, boiling house oiler , instructed that dr garrett needed to call senior specialist immediately. explained would give message to dr garrett to call dr bains [phone] directly as he is sitting at the desk. esthela stated, he needs to call immediately . message given to dr garrett .
--- NOTE | 2023-03-20 12:57 | PC.NURSE ---
Final urine culture report, mixed genital giana isolated, no UTI, No further action or treatment needed per ERP
== END 2023-03-18 06:11 | disposition short-term general hospital (02) ==
PROVIDERS: Emergency Provider Family Medicine; PCP Internal Medicine
DX: K63.1 Perforation of intestine (nontraumatic) (principal); K66.8 Other specified disorders of peritoneum; E11.9 Type 2 diabetes mellitus without complications; I48.91 Unspecified atrial fibrillation; I11.0 Hypertensive heart disease with heart failure; I50.9 Heart failure, unspecified; Z79.899 Other long term (current) drug therapy; Z79.4 Long term (current) use of insulin
CPT/HCPCS: 36415; 74177; 80053; 81001; 82948; 83605; 83690; 84484; 85025; 85610; 86140; 87086; 87088; 93005; 96361; 96365; 96367; 96375; 96376; 99285; J0696; J1836; J2270; J2405; J7030; Q9967

== ENCOUNTER 2023-03-18 07:20 | Inpatient (IN) | payer MEDICARE, OTHER, SELFPAY ==
[2023-03-18] VITALS (18 sets, daily range): BP systolic 98–152; BP diastolic 63–94; PULSE 9–98; RESP 9–24; TEMP 36.4–37.6; O2SAT 91–98; BMI 41.0
--- NOTE | ~2023-03-18 | XR_ITS ---
EXAMINATION: XR chest 1V portable DATE: 03/19/2023 07:57 INDICATION: Respiratory failure. TECHNIQUE: A single frontal view of the chest was obtained. COMPARISON: Chest single view 03/18/2023, CT abdomen and pelvis 03/18/2023 FINDINGS: There is no pneumonia, pleural effusion, or pneumothorax. Cardiomegaly is noted. There is a left chest pacer with leads in right atrium, right ventricle, and coronary sinus. The nasogastric tu be tip is beyond the inferior margin of the radiograph, but at least to the stomach. A right upper ex tremity peripherally inserted central venous catheter (PICC) is seen with tip in the superior vena ca va. IMPRESSION: 1. Cardiomegaly. Reviewed, dictated and finalized at location E. ESTATE SALES SUPERVISOR IMPRESSION: 1. Cardiomegaly.
--- NOTE | ~2023-03-18 | XR_ITS ---
EXAMINATION: XR chest 1V portable DATE: 03/18/2023 07:50 INDICATION: Sepsis. TECHNIQUE: A single frontal view of the chest was obtained. COMPARISON: CT abdomen and pelvis 03/18/2023 FINDINGS: There is mild atelectasis in the mid and lower lung zones. No pleural effusion or pneumotho rax. Cardiomegaly is noted. There is a left chest pacer with leads in right atrium, right ventricle, and coronary sinus. The nasogastric tube tip is beyond the inferior margin of the radiograph, but at least to the stomach. IMPRESSION: 1. Mild atelectasis in the mid and lower lung zones. 2. Cardiomegaly. Reviewed, dictated and finalized at location E. LOGIST
--- NOTE | ~2023-03-18 | XR_ITS ---
XR chest PICC line 03/18/2023 09:04 Indication: PICC line placement Procedure: AP portable chest Comparison: 03/18/2023 Findings: Cardiomegaly. NG tube in the stomach. No focal air space disease, pulmonary edema, pleural effusion or suspected pneumothorax. PICC line in the SVC. Pacemaker leads are stable. Left basilar at electasis. Impression: 1: Left basilar atelectasis. 2: Cardiomegaly. Reviewed, dictated and finalized at location L. GER OF SOFTWARE Impression: 1: Left basilar atelectasis. 2: Cardiomegaly.
--- NOTE | ~2023-03-18 | XR_ITS ---
EXAMINATION: XR abdomen gastric tube insert DATE: 03/18/2023 07:50 INDICATION: Nasogastric tube placement. TECHNIQUE: An upright view of the abdomen was obtained. COMPARISON: CT abdomen and pelvis 03/18/2023 FINDINGS: The lower abdomen is excluded. The nasogastric tube tip is in the stomach. There are pacer wires in right atrium, right ventricle, and coronary sinus. IMPRESSION: 1. Nasogastric tube tip in the stomach. Reviewed, dictated and finalized at location E. WARE SOFTWARE VERIFICATION ENGINEER
--- NOTE | ~2023-03-18 | XR_ITS ---
EXAMINATION: XR UGI water soluble wo kub DATE: 03/21/2023 09:09 INDICATION: Perforated gastric ulcer status post repair. TECHNIQUE: Water-soluble contrast was injected through the nasogastric tube. Radiographs of the esoph carmelo, stomach, and proximal small bowel were performed. Fluoroscopy exposure time was 0 minutes. The total number of images was 6. COMPARISON: CT abdomen and pelvis 03/18/2023 FINDINGS: There are pacer wires in right atrium and right ventricle and coronary sinus. The nasogastr ic tube tip is in the stomach. A surgical drain overlies the abdomen. The stomach and duodenum are un remarkable. There is no extraluminal contrast. There are airspace opacities at left lung base. Cardio megaly is noted. IMPRESSION: 1. No extraluminal leakage of contrast. 2. Airspace opacities at left lung base, consistent with atelectasis versus pneumonia. 3. Cardiomegaly. Reviewed, dictated and finalized at location A. ESTATE PROFESSIONAL IMPRESSION: 1. No extraluminal leakage of contrast. 2. Airspace opacities at left lung base, consistent with atelectasis versus pne umonia. 3. Cardiomegaly.
--- NOTE | 2023-03-18 06:57 | ADMGEN ---
This patient, Cristi Broussard, was admitted to Intensive Care Unit-3. Patient/family oriented to hospital policies and general routines including ID bracelet, bed and alarms, visiting hours, pain management, procedures, bathroom and other care routines, personal items, smoking policy, room service/diet, and visiting hours. Information on how to activate the Rapid Response Team has been discussed. Patient/Family are encouraged to report perceived risks to care and to ask questions if they do not understand what they are told or what they should do.
[2023-03-18] MEDS: ONDANSETRON INJ 4 MG/2 ML VIAL IV PUSH (08:03)
--- NOTE | 2023-03-18 08:03 | PM.IMHP ---
H&P: HPI History of Present Illness Date/Time: 03/18/23 08:03 Chief Complaint: Patient transferred from a [facility] Emergency Room with perforated viscus Narrative: He is a very pleasant 77 years old white male who is complaining of upper abdominal pain for the last 2-3 days. He came to the [facility] emergency room late last night. Workup was done which showed leukocytosis and CT scan showed free air consistent with perforated viscus. Patient was hemodynamically stable. He has be transferred to our hospital in the ICU for emergent surgical evaluation and to be taken to the OR for surgery. Review of Systems Review of Systems: 14 systems were reviewed with pertinent positives and negatives per HPI. Except as documented in the HPI/progress notes, all other systems were reviewed and are negative. All systems reviewed & are unremarkable except as noted in HPI and below PMFSH Past Medical History Medical History Atrial fibrillation CHF (congestive heart failure) Diabetes type 2, controlled Hyperlipidemia Hypertension Pacemaker Social History Social History Smoking status: Never smoker Alcohol intake: never Drinks per week: 7 Substance use: never Do You Feel Safe in your Home?: Yes Lack of Transportation: YES Lack of Food: Never True Current Housing: I Do Not Have Housing Concerned About Future Housing: No Difficulty Paying Gas/Electric Bills: No Difficulty Paying for Meds: No Currently Unemployed: No Education: High School Diploma/GED Difficulty w/ Childcare or Family Care: No Living arrangements: with family Additional living arrangements comments: SON- LYNN Spiritual care concerns: No Meds Home Medications and Allergies Home Medications Medication Instructions Recorded Confirmed Type allopurinol 100 mg tablet 100 mg PO QAM 05/29/21 03/18/23 History amlodipine 5 mg tablet 5 mg PO QAM 05/29/21 03/18/23 History apixaban 5 mg tablet (Eliquis) 5 mg PO BID 05/29/21 03/18/23 History atorvastatin 40 mg tablet 40 mg PO HS 05/29/21 03/18/23 History carvedilol 25 mg tablet 25 mg PO BID 05/29/21 03/18/23 History furosemide 40 mg tablet 40 mg PO QAM 05/29/21 03/18/23 History glimepiride 4 mg tablet 4 mg PO QACLUNCH 05/29/21 03/18/23 History insulin degludec 100 unit/mL (3 10 unit subcut QAM 05/29/21 03/18/23 History mL) subcutaneous pen (Tresiba FlexTouch U-100 insulin) lisinopril 20 mg tablet 20 mg PO BID 05/29/21 03/18/23 History metformin 500 mg tablet,extended 500 mg PO BID 05/29/21 03/18/23 History release 24 hr montelukast 10 mg tablet 10 mg PO DAILY 05/29/21 03/18/23 History sotalol 80 mg tablet 80 mg PO BID 05/29/21 03/18/23 History Allergies Allergy/AdvReac Type Severity Reaction Status Date / Time No Known Allergies Allergy Verified 03/18/23 08:13 Vital Signs Vital Signs - 24 hr 03/18/23 06:55 Temperature 36.4 C Pulse Rate 98 Respiratory Rate 24 H Blood Pressure 152/94 H Pulse Oximetry 92 Exam Narrative: PHYSICAL EXAMINATION: Vital signs: Please see the chart General physical exam: Morbidly obese patient, lying in bed, complains of abdominal pain and distended abdomen Head/eyes: Atraumatic, EOMI, PERRLA ENT: Moist mucous membranes, nasal passages clear Neck: Supple, full range of motion, trachea midline CVS: S1 + S2, regular rate and rhythm, no murmurs Respiratory: Bilaterally fair air entry in both lung ricardo, mild B/L crackles, symmetric chest expansion, no distress Abdomen: +++ distended abdomen,++ tenderness on palpation, bowel sounds +ve Extremities: No clubbing, no cyanosis, no edema, no calf tenderness Musculoskeletal: Moves all, adequate range of motion, no muscle spasms Skin: Warm, dry, no jaundice, no cyanosis Neurological: Awake, alert, oriented x 3, cranial nerves II-XII intact, no focal neurological defici
[2023-03-18] MEDS: PIPERACILLN/TAZ 3.375GM/NS50ML 3.375 GM/50 ML BAG IVPB ×3 (08:04→17:30)
[2023-03-18] MEDS: LACTATED RINGERS 1,000 ML 100 ML IV CONT ×2 (08:06→15:19)
[2023-03-18 08:43] LABS: Basophils Absolute Auto 0.1 K/mm3 (0.0-0.1); Basophils Percent Auto 0.4 % (0.2-1.2); Hematocrit 52.8 % (42.0-52.0); Hemoglobin 16.2 g/dL (14.0-18.0); Immature Granulocyte Absolute 0.04 K/mm3 (0.00-0.031); Immature Granulocyte Percent A 0.3 % (0-0.5); Lymphocytes Absolute Auto 0.67 K/mm3 (0.9-3.2); Mean Corpuscular HGB Conc 30.7 g/dl (32-36); Mean Corpuscular Hemoglobin 31.2 pg (26-34); Mean Corpuscular Volume 101.5 fl (80-100); Monocytes Absolute Auto 0.6 K/mm3 (0.1-0.6); Monocytes Percent Auto 4.3 % (2.6-8.5); Neutrophils Absolute Auto 12.2 K/mm3 (1.3-6.7); Platelet Count Result 153 k/mm3 (150-375); Red Cell Distribution Width 13.6 % (11.5-14.5); White Blood Count 13.5 K/mm3 (4.5-10.0)
[2023-03-18 08:54] LABS: INR 1.9; Partial Thromboplastin Time 31.8 SECONDS (22.3-36.8); Prothrombin Time 23.1 Seconds (11.1-14.7)
[2023-03-18 08:56] LABS: Lactic Acid Reflex 2.2 mmol/L (0.7-2.0)
[2023-03-18 08:56] LABS: Alanine Aminotransferase 20 U/L (6-50); Alkaline Phosphatase 71 U/L (38-126); Anion Gap 11 mmol/L (8-16); Aspartate Amino Transferase 19 U/L (17-59); Bilirubin,Total 1.7 mg/dL (0.2-1.3); Blood Urea Nitrogen 20 mg/dL (9-20); Calcium 10.4 mg/dL (8.4-10.2); Carbon Dioxide 28 mmol/L (22-30); Chloride 100 mmol/L (98-107); Creatine Kinase 31 U/L (55-170); Estimated CRCL calculation 73 ml/min; Estimated Glomerular Filt Rate > 60; Glucose 194 mg/dL (65-110); Potassium 5.1 mmol/L (3.4-5.0); Sodium 139 mmol/L (137-145)
[2023-03-18 08:58] LABS: CRP 1.3 mg/dL (<1.0); Lipase 114 U/L (23-300); Magnesium 1.8 mg/dL (1.6-2.3); Phosphorus 4.9 mg/dL (2.5-4.5)
--- NOTE | 2023-03-18 09:08 | WPDCNINT ---
Assessment and Plan Assessment and plan (1) Perforated abdominal viscus: Code(s): R19.8 - Other specified symptoms and signs involving the digestive system and abdomen Status: Acute Assessment and Plan: 03/18: Patient presented to the [facility] ER at [facility] with abdominal pain and distention along with nausea and vomiting. No bowel movements for 2 days prior to admission, no fevers or chills, had some difficulty breathing secondary to the abdominal distension -The initial reading by [employer] on the CT scan of the abdomen and pelvis stated gallbladder wall thickening and pericholecystic fluid consistent with acute cholecystitis. Patient was going to be admitted to the medical floor. - Revised reading of the CT scan of the abdomen and pelvis showed free intraperitoneal gas consistent with perforated viscus, ulcer of the distal gastric antrum, small volume ascites, small right pleural effusion. - Surgeons were notified at [facility] and patient was transferred to the ICU for further management. -discussed with surgery, patient will be taken to the ER this afternoon. - blood cultures have been obtained -started patient on Zosyn and vancomycin along with fluconazole -patient did take his Eliquis, INR is 1.9, surgery requested Kcentra to be given, which has been ordered -PICC line placed (2) Vomiting: Code(s): R11.10 - Vomiting, unspecified Status: Acute Assessment and Plan: NG tube was inserted with improvement in nausea and vomiting (3) Essential hypertension: Code(s): I10 - Essential (primary) hypertension Status: Acute Assessment and Plan: Blood pressures are stable, hold all antihypertensives patient is NPO (4) Diabetes mellitus type 2 in obese: Code(s): E11.69 - Type 2 diabetes mellitus with other specified complication; E66.9 - Obesity, unspecified Status: Acute Assessment and Plan: Accu-Cheks and sliding scale insulin (5) CHF (congestive heart failure): Qualifiers: Heart failure type: unspecified Heart failure chronicity: unspecified Qualified Code(s): I50.9 - Heart failure, unspecified Code(s): I50.9 - Heart failure, unspecified Status: Acute Assessment and Plan: Patient has a history of CHF not specified if diastolic or systolic -chest x-ray does not look volume overloaded, patient does have some mild edema in his lower extremity -will give IV fluids with caution (6) Atrial fibrillation: Code(s): I48.91 - Unspecified atrial fibrillation Status: Acute Assessment and Plan: History of atrial fibrillation status post pacemaker and defibrillator -currently rate controlled, paced rhythm Plan DVT prophylaxis: SCDs Stress ulcer prophylaxis: Protonix Nutrition: NPO Code Status: Full code Critical Care Time Spent: 51 minutes Discussed with patient at length regarding than code status, he would like to be a full code but does not want to be on machines for a prolonged amount of time. His son Lauri, would make decisions in case the patient is unable to make his own healthcare decisions. Bedside RN was present at this time. Patient is aware that he will be going for surgery today, 03/18 Due to a high probability of clinically significant, life threatening deterioration, the patient required my highest level of preparedness to intervene emergently and I personally spent this critical care time directly and personally managing the patient. This critical care time included obtaining a history; examining the patient; pulse oximetry; ordering and review of studies; arranging urgent treatment with development of a management plan; evaluation of patient's response to treatment; frequent reassessment; and discussions with other providers. It was exclusive of separately billable procedures and treating other patients and teaching time. Please see Assessment and Plan section and the rest of the no
[2023-03-18] MEDS: LIDOCAINE HCL 1% PF INJ 5 ML VIAL INFILTRATE (09:09)
[2023-03-18] MEDS: HUMAN PROTHROMBIN COMPLEX(PCC) 5,000 UNITS in PREMIXIV 0 ML 504 UNITS IV CONT (09:22)
[2023-03-18] MEDS: VANCOMYCIN 1,250 MG/NS 250 ML 1,250 MG/250 ML BAG 166.67 MG IVPB ×2 (09:23)
[2023-03-18] MEDS: PANTOPRAZOLE SODIUM IV 40 MG VIAL IV PUSH ×2 (09:24→20:33)
[2023-03-18 09:38] LABS: Hemoglobin A1C 6.8 % (<5.7)
[2023-03-18 09:47] LABS: Creatinine Urine 123.8 mg/dL
[2023-03-18] MEDS: LACTATED RINGERS 500 ML 999 ML IV CONT ×2 (09:51→10:48)
[2023-03-18 09:52] LABS: Potassium Urine Random 68.9 meq/L; Sodium Urine Random 34 meq/L
[2023-03-18] MEDS: FLUCONAZOLE 200 MG/NACL 100 ML 200 MG/100 ML BAG 100 MG IVPB (09:58)
[2023-03-18 10:37] LABS: Eosinophil Urine Rare % (None Seen); Urine Eos QC 2nd Tech Confirmed
--- NOTE | 2023-03-18 11:37 | WPDCN ---
Assessment and Plan Assessment and plan (1) Perforated abdominal viscus: Code(s): R19.8 - Other specified symptoms and signs involving the digestive system and abdomen Status: Acute Assessment and Plan: Patient appears to have a small perforation of his gastric antrum with some free air. He has been admitted to the [facility] intensive care unit. He will be hydrated and resuscitated. Nasogastric tube is now in place. Since he recently took liquids will give him some Kcentra. Will need to go to the operating room later this afternoon for a laparotomy and repair of the gastric ulcer. Patient understands agrees with this plan. Continue broad-spectrum IV antibiotics to include anti fungal coverage since this is a perforated gastric ulcer. HPI Data of Consult Date/Time: 03/18/23 11:37 Requesting Physician: Gale Carlos DO Primary Care Provider: Lucio Ray, Consult Narrative Reason for consult: Epigastric abdominal pain, perforated gastric ulcer and abdominal free air Narrative: Cristi Broussard is a 77 year old male who presented to the [facility] Emergency Room late last night. He had been having upper abdominal pain for last 2 to 3 days. Workup in the emergency room showed elevated white blood count [address]. He had a CT scan which initially was read out as being acute cholecystitis and it was requested that he be transferred [facility]. The CT scan was then by 2nd radiologist after the patient was in transit to [facility] and the finding was to be a perforated gastric antral ulcer with some free air. No evidence of acute cholecystitis with cholelithiasis was noted. Patient was hemodynamically stable. On arrival to [facility] he was then placed in intensive care unit. Nasogastric tube was placed. When I saw him in the intensive care unit he was fairly comfortable but having moderate tenderness to deep palpation epigastric region abdomen. No generalized peritoneal signs. His INR was 1.9. Eliquis and took his last dose last evening. He also has congestive heart failure and atrial fibrillation and a pacemaker in place. He is morbidly obese. He denies any prior history abdominal surgery. Review of Systems Review of Systems: The remainder of the review of systems to include constitutional, HEENT, cardiovascular, respiratory, GI, , integumentary, musculoskeletal, endocrine, immunologic, hematologic, psychiatric, and neurologic are all negative except for which is mentioned above in the HPI. [facility] Past Medical History Medical History Atrial fibrillation CHF (congestive heart failure) Diabetes type 2, controlled Hyperlipidemia Hypertension Pacemaker Social History Social History Smoking status: Never smoker Alcohol intake: never Drinks per week: 7 Substance use: never Do You Feel Safe in your Home?: Yes Lack of Transportation: YES Lack of Food: Never True Current Housing: I Do Not Have Housing Concerned About Future Housing: No Difficulty Paying Gas/Electric Bills: No Difficulty Paying for Meds: No Currently Unemployed: No Education: High School Diploma/GED Difficulty w/ Childcare or Family Care: No Living arrangements: with family Additional living arrangements comments: SON- LYNN Spiritual care concerns: No Meds Home Medications and Allergies Home Medications Medication Instructions Recorded Confirmed Type allopurinol 100 mg tablet 100 mg PO QAM 05/29/21 03/18/23 History amlodipine 5 mg tablet 5 mg PO QAM 05/29/21 03/18/23 History apixaban 5 mg tablet (Eliquis) 5 mg PO BID 05/29/21 03/18/23 History atorvastatin 40 mg tablet 40 mg PO HS 05/29/21 03/18/23 History carvedilol 25 mg tablet 25 mg PO BID 05/29/21 03/18/23 History furosemide 40 mg tablet 40 mg PO QAM 05/29/21 03/18/23 History g
--- NOTE | 2023-03-18 11:46 | WPDHPUPDATE1 ---
History and Physical Update Update Date/Time: 03/18/23 11:46 History and Physical has been reviewed, including an updated exam of the patient. There are NO changes in the patient's condition. Risks, benefits, and alternatives have been discussed and questions answered. Patient agrees to proceed with procedure.
[2023-03-18 11:53] LABS: Glucose Point of Care 147 mg/dl (65-105)
[2023-03-18] MEDS: CENTRAL LINE FLUSH 10 ML IV PUSH ×2 (14:02→20:33)
--- NOTE | 2023-03-18 15:50 | PC.NURSE ---
OR staff here to transport patient to pre-op. Pt. put onto their credit resolution representative.
[2023-03-18 16:01] LABS: Glucose Point of Care 128 mg/dl (65-105)
--- NOTE | 2023-03-18 16:13 | WPDANESEPPF ---
Anes - Initial Pre Proc Eval Procedure: Operation Date: 03/18/23 18:00 Proposed Procedures p Exploratory Laparotomy, Repair Gastric Ulcer - Mariano Pace MD Date/Time: 03/18/23 16:13 Surgeon: Gale Carlos DO Pre Op Diagnosis: Acute Cholecystitis Patient Data Age: 77 Gender: M Height: 1.75 m Weight: 126.1 kg Last Vital Signs Temp 37.3 C 03/18/23 11:46 Pulse 86 03/18/23 12:00 Resp 14 03/18/23 11:46 BP 131/88 03/18/23 11:46 Pulse Ox 96 03/18/23 11:46 O2 Del Method Nasal Cannula 03/18/23 08:00 O2 Flow Rate 2 03/18/23 08:00 Allergies Allergy/AdvReac Type Severity Reaction Status Date / Time No Known Allergies Allergy Verified 03/18/23 08:13 Home Medications Medication Instructions Recorded Confirmed Type allopurinol 100 mg tablet 100 mg PO QAM 05/29/21 03/18/23 History amlodipine 5 mg tablet 5 mg PO QAM 05/29/21 03/18/23 History apixaban 5 mg tablet (Eliquis) 5 mg PO BID 05/29/21 03/18/23 History atorvastatin 40 mg tablet 40 mg PO HS 05/29/21 03/18/23 History carvedilol 25 mg tablet 25 mg PO BID 05/29/21 03/18/23 History furosemide 40 mg tablet 40 mg PO QAM 05/29/21 03/18/23 History glimepiride 4 mg tablet 4 mg PO QACLUNCH 05/29/21 03/18/23 History insulin degludec 100 unit/mL (3 10 unit subcut QAM 05/29/21 03/18/23 History mL) subcutaneous pen (Tresiba FlexTouch U-100 insulin) lisinopril 20 mg tablet 20 mg PO BID 05/29/21 03/18/23 History metformin 500 mg tablet,extended 500 mg PO BID 05/29/21 03/18/23 History release 24 hr montelukast 10 mg tablet 10 mg PO DAILY 05/29/21 03/18/23 History sotalol 80 mg tablet 80 mg PO BID 05/29/21 03/18/23 History Laboratory Tests 03/18/23 03/18/23 03/18/23 08:31 08:32 09:30 WBC 13.5 H K/mm3 (4.5-10.0) RBC 5.20 M/mm3 (4.6-6.20) Hgb 16.2 g/dL (14.0-18.0) Hct 52.8 H % (42.0-52.0) MCV 101.5 H fl (80-100) MCH 31.2 pg (26-34) MCHC 30.7 L g/dl (32-36) RDW 13.6 % (11.5-14.5) Plt Count 153 k/mm3 (150-375) MPV 11.0 H fl (7.4-10.4) Immature Gran % (Auto) 0.3 % (0-0.5) Neut % (Auto) 90.0 H % (45.5-73.1) Lymph % (Auto) 5.0 L % (18.3-44.2) [place] % (Auto) 4.3 % (2.6-8.5) Eos % (Auto) 0.0 % (0-4.4) Baso % (Auto) 0.4 % (0.2-1.2) Lymph # (Auto) 0.67 L K/mm3 (0.9-3.2) [place] # (Auto) 0.6 K/mm3 (0.1-0.6) Eos # (Auto) 0.0 K/mm3 (0-0.3) Baso # (Auto) 0.1 K/mm3 (0.0-0.1) Abs Immat Gran (auto) 0.04 H K/mm3 (0.00-0.031) Absolute Neuts (auto) 12.2 H K/mm3 (1.3-6.7) Absolute Nucleated RBC 0.0 K/mm3 (0.0-0.012) Nucleated RBC % 0.0 % (0.0-0.2) PT 23.1 H Seconds (11.1-14.7) INR 1.9 APTT 31.8 SECONDS (22.3-36.8) Sodium 139 mmol/L (137-145) Potassium 5.1 H mmol/L (3.4-5.0) Chloride 100 mmol/L (98-107) Carbon Dioxide 28 mmol/L (22-30) Anion Gap 11 mmol/L (8-16) BUN 20 mg/dL (9-20) Creatinine 1.00 mg/dL (0.7-1.3) Estim Creat Clear Calc 73 ml/min Estimated GFR > 60 (59 - ) Glucose 194 H mg/dL (65-110) POC Capillary Glucose Hemoglobin A1c 6.8 H % (<5.7) Lactic Acid 2.2 H mmol/L (0.7-2.0) Calcium 10.4 H mg/dL (8.4-10.2) Phosphorus 4.9 H mg/dL (2.5-4.5) Magnesium 1.8 mg/dL (1.6-2.3) Total Bilirubin 1.7 H mg/dL (0.2-1.3) AST 19 U/L (17-59) ALT 20 U/L (6-50) Alkaline Phosphatase 71 U/L (38-126) Total Creatine Kinase 31 L U/L (55-170) C-Reactive Protein 1.3 H mg/dL (<1.0) Total Protein 7.0 g/dL (6.3-8.2) Albumin 4.0 g/dL (3.5-5.1) Lipase 114 U/L (23
[2023-03-18] MEDS: LACTATED RINGERS 1,000 ML 30 ML IV CONT (18:42)
--- NOTE | 2023-03-18 18:58 | W.PM.PROC2 ---
Procedure Note - Detailed Date of Procedure 03/18/23 Pre-op Diagnosis Perforated antral gastric ulcer Post-op Diagnosis Same Procedure Performed laparotomy and repair of gastric antral ulcer with modified Kvng patch Surgeon Mariano Pace MD Manager Culinary KALLIE Ling Anesthesia General Indications patient is a 77-year-old gentleman who presented to outside emergency room planning a to 3 day history of worsening epigastric abdominal pain. He did have some episodes of nausea vomiting. He has a history fibrillation and congestive heart failure has a pacemaker in place. He has never had abdominal surgery in the past. Workup in emergency room and this showed mildly elevated white blood cell count around 13,[address]. initially a CT scan abdomen pelvis was done showing what was initially thought to be acute cholecystitis. He was then transferred [facility]. Once he arrived [facility] the over read of the CT scan by our [facility] radiologist feel that patient did not have acute cholecystitis but actually had a perforated gastric antral ulcer. The patient was initially admitted to the intensive care unit where he was resuscitated. He also received reversal agents for Eliquis. He is being brought to the operating now for emergent laparotomy and repair of the gastric antral ulcer. Findings The patient had a small perforation of the anterior wall of the antrum just proximal to the pylorus. The defect measured approximately 4mm in diameter and was not bleeding. About a L of gastric contents which was all liquid with no particulate matter was found in the abdomen. This was suctioned away. No mass effect was noted upon palpation of the area the ulcer. Description of Procedure After informed consent was obtained patient was brought to the operating room was placed supine position and general endotracheal anesthesia was administered. The abdomen was then prepped and draped usual sterile fashion. A time-out was then performed correctly identifying the patient as well as procedure to be performed verifying that he was already on scheduled IV antibiotics. I then made a upper midline incision starting at the xiphoid process 6 and extending it caudally for about 10 to 15 cm. Dissection was carried down through the subcutaneous tissues and then the midline fascia was divided tender the epigastric region of the abdomen. Upon opening the peritoneum there was copious amounts of brownish fluid that was not particularly odorous and had no particular matter in it. I opened the fascia to mesh with the skin incision. I then suctioned out as much of the gastric fluid is I could then proceeded to explore the epigastric region the abdomen. I then identified the transverse colon the omentum and swept it towards the midportion of the abdomen. The right lobe of liver was identified and the gallbladder was identified. The body of the stomach was identified and traced distally to the antrum. In this area there was an inflamed area was around a small perforation on the anterior wall of the antrum measuring only about 4mm in diameter. The edges were pretty clean. No rolled edges and no mass effect associated with the perforation. I then proceeded to perform a modified Kvng patch repair of the perforated ulcer. Interrupted 3-0 PDS sutures were then placed full-thickness through the anterior wall of the antrum to approximate the edges and closed the defect without any tension. Four sutures were placed. I then proceeded to buttress the closure by placement of a vascularized pedicle flap of tissue. The piece of tissue which was actually easiest to perform the patch with was actually the falciform ligament. I then proceeded to divide the falciform ligament near the liver and then ligate the distal and proximal ends. I then placed 3 separate 3-0 silk suture across the closed defect with good seromuscular bites. Falciform ligament was then brought of place
[2023-03-18 18:59] LABS: Glucose Point of Care 149 mg/dl (65-105)
[2023-03-18] MEDS: HYDROmorphone HCL INJ (*CRX) 1 MG/ML SYR 0.5 MG IV PUSH ×2 (19:23→19:28)
[2023-03-18] MEDS: ALBUTEROL SULFATE NEB 2.5 MG/3 ML INH INHALATION (21:02)
[2023-03-18] MEDS: IPRATROPIUM BR 0.02% INH SOLN 0.5 MG/2.5 ML VIAL INHALATION (21:02)
[2023-03-19] VITALS (25 sets, daily range): BP systolic 97–131; BP diastolic 67–82; PULSE 80–90; RESP 10–24; TEMP 36.9–37.6; O2SAT 95–99
[2023-03-19] MEDS: PIPERACILLN/TAZ 3.375GM/NS50ML 3.375 GM/50 ML BAG IVPB ×4 (00:15→18:30)
[2023-03-19 00:29] LABS: Alveolar/Arterial O2 Gradient 334.1 mmHg; Base Excess ABG -4.5 mEq/l (+/-2.0); Carboxyhemoglobin 0.2 % THb (0-2.0); Fractional Inspired Oxygen 80 %; Methemoglobin ABG 0.6 %THb (0-1.5); Oxygen Content ABG 21.5 %vol (16.0-22.0); Oxygen Saturation ABG 98.2 % (95.0-100.0); Oxyhemoglobin 97.1 % THb (90.0-100.0); PO2 ABG 150.8 mmHg (80.0-100.0); PO2 FiO2 Ratio Arterial Blood 1.88 %; Reduced Hemoglobin 2.1 %THb (0-5.0); Total Hemoglobin 15.6 g/dL (12.0-18.0)
[2023-03-19 00:32] LABS: Glucose Point of Care 148 mg/dl (65-105)
--- NOTE | 2023-03-19 00:36 | PC.NURSE ---
Spoke to Dr. Smalls regarding patient being lethargic upon midnight assessment and recent ABG. Start bipap. Titrate for 500-550 TV. Repeat ABG in AM. Also give one dose of Narcan.
[2023-03-19 00:49] LABS: Modified Allen's Test Pass; PCO2 ABG 81.4 mmHg (35.0-45.0); Site Drawn LEFT RADIAL; pH ABG 7.138 (7.350-7.450)
[2023-03-19 00:50] LABS: Device HIGH FLOW THERAPY
[2023-03-19] MEDS: NALOXONE HCL 0.4 MG/ML VIAL IV PUSH (01:30)
[2023-03-19] MEDS: ALBUTEROL SULFATE NEB 2.5 MG/3 ML INH INHALATION ×4 (02:54→20:22)
[2023-03-19] MEDS: IPRATROPIUM BR 0.02% INH SOLN 0.5 MG/2.5 ML VIAL INHALATION ×4 (02:54→20:22)
[2023-03-19] MEDS: CENTRAL LINE FLUSH 10 ML IV PUSH ×3 (04:36→22:43)
[2023-03-19] MEDS: LACTATED RINGERS 1,000 ML 100 ML IV CONT ×2 (04:36→17:28)
[2023-03-19] MEDS: VANCOMYCIN 1,500 MG/NS 500 ML 1,500 MG/500 ML BAG 250 MG IVPB (04:36)
[2023-03-19 04:52] LABS: Basophils Percent Auto 0.2 % (0.2-1.2); Hematocrit 45.8 % (42.0-52.0); Hemoglobin 14.2 g/dL (14.0-18.0); Immature Granulocyte Absolute 0.05 K/mm3 (0.00-0.031); Immature Granulocyte Percent A 0.4 % (0-0.5); Lymphocytes Percent Auto 5.7 % (18.3-44.2); Mean Corpuscular Hemoglobin 31.1 pg (26-34); Mean Corpuscular Volume 100.4 fl (80-100); Mean Platelet Volume 11.1 fl (7.4-10.4); Monocytes Absolute Auto 0.9 K/mm3 (0.1-0.6); Monocytes Percent Auto 6.5 % (2.6-8.5); Neutrophils Absolute Auto 12.2 K/mm3 (1.3-6.7); Neutrophils Percent Auto 87.2 % (45.5-73.1); Platelet Count Result 155 k/mm3 (150-375); Red Blood Count 4.56 M/mm3 (4.6-6.20); Red Cell Distribution Width 13.6 % (11.5-14.5)
[2023-03-19 05:06] LABS: Alanine Aminotransferase 23 U/L (6-50); Albumin Level 3.1 g/dL (3.5-5.1); Alkaline Phosphatase 46 U/L (38-126); Anion Gap 7 mmol/L (8-16); Aspartate Amino Transferase 25 U/L (17-59); Bilirubin,Total 1.2 mg/dL (0.2-1.3); Blood Urea Nitrogen 28 mg/dL (9-20); Calcium 9.2 mg/dL (8.4-10.2); Carbon Dioxide 28 mmol/L (22-30); Chloride 102 mmol/L (98-107); Estimated CRCL calculation 55 ml/min; Estimated Glomerular Filt Rate 49; Glucose 159 mg/dL (65-110); Lactic Acid Reflex 1.5 mmol/L (0.7-2.0); Magnesium 1.8 mg/dL (1.6-2.3); Phosphorus 5.2 mg/dL (2.5-4.5); Potassium 5.1 mmol/L (3.4-5.0); Sodium 137 mmol/L (137-145)
[2023-03-19 05:26] LABS: Alveolar/Arterial O2 Gradient 141.9 mmHg; Base Excess ABG -1.6 mEq/l (+/-2.0); Carboxyhemoglobin 0.7 % THb (0-2.0); Fractional Inspired Oxygen 30 %; HCO3 ABG 24.8 mEq/l (22.0-26.0); Methemoglobin ABG 0.3 %THb (0-1.5); Oxygen Content ABG 20.6 %vol (16.0-22.0); Oxygen Saturation ABG 95.1 % (95.0-100.0); Oxyhemoglobin 94.3 % THb (90.0-100.0); PCO2 ABG 47.7 mmHg (35.0-45.0); PO2 ABG 80.6 mmHg (80.0-100.0); PO2 FiO2 Ratio Arterial Blood 2.69 %; Reduced Hemoglobin 4.7 %THb (0-5.0); Total Hemoglobin 15.5 g/dL (12.0-18.0); pH ABG 7.333 (7.350-7.450)
[2023-03-19 07:01] LABS: Device NON-INVASIVE VENT; Modified Allen's Test Pass; Site Drawn LEFT RADIAL
[2023-03-19 07:03] LABS: Non-Invasive Expiratory Pressure 10 CMH2O; Non-Invasive Inspiratory Pressure 18 CMH2O; Non-Invasive Vent Rate 24 /MIN
--- NOTE | 2023-03-19 07:49 | WPDANESPN ---
Anes - Prog Note Post-Op Date/Time: 03/19/23 07:49 Cardiovascular status: normal Respiratory status: normal (Patient on high flow NC) Airway patency: baseline Mental status: baseline Post-Op hydration status: normal Vital Signs: Last Vital Signs Temp 37.4 C 03/19/23 06:00 Pulse 85 03/19/23 06:00 Resp 24 H 03/19/23 06:00 BP 97/67 L 03/19/23 06:00 Pulse Ox 96 03/19/23 06:00 O2 Del Method BiPAP 03/19/23 06:00 O2 Flow Rate 50 03/19/23 00:00 FiO2 30 03/19/23 04:00 Pain Score (VAS): 05/03 I/O: Intake & Output 03/18/23 03/18/23 03/19/23 15:59 23:59 07:59 Intake Total 2900 100 1100 Output Total 65 500 Balance 2900 35 600 Laboratory Tests 03/19/23 04:43 03/19/23 04:43 03/18/23 03/18/23 03/18/23 08:31 08:32 09:30 WBC 13.5 H RBC 5.20 Hgb 16.2 Hct 52.8 H MCV 101.5 H MCH 31.2 MCHC 30.7 L RDW 13.6 Plt Count 153 MPV 11.0 H Immature Gran % (Auto) 0.3 Neut % (Auto) 90.0 H Lymph % (Auto) 5.0 L Austin % (Auto) 4.3 Eos % (Auto) 0.0 Baso % (Auto) 0.4 Lymph # (Auto) 0.67 L Austin # (Auto) 0.6 Eos # (Auto) 0.0 Baso # (Auto) 0.1 Abs Immat Gran (auto) 0.04 H Absolute Neuts (auto) 12.2 H Absolute Nucleated RBC 0.0 Nucleated RBC % 0.0 PT 23.1 H INR 1.9 APTT 31.8 Puncture Site ABG pH ABG pCO2 ABG pO2 ABG PO2/FiO2 Ratio ABG HCO3 ABG O2 Saturation ABG O2 Content ABG Base Excess A-a Gradient Oxyhemoglobin Carboxyhemoglobin Methemoglobin Reduced Hemoglobin Total Hemoglobin O2 Delivery Device O2 Liters/Min Vent Rate FiO2 Expiratory Pressure Inspiratory Pressure Sodium 139 Potassium 5.1 H Chloride 100 Carbon Dioxide 28 Anion Gap 11 BUN 20 Creatinine 1.00 Estim Creat Clear Calc 73 Estimated GFR > 60 Glucose 194 H POC Capillary Glucose Hemoglobin A1c 6.8 H Lactic Acid 2.2 H Calcium 10.4 H Phosphorus 4.9 H Magnesium 1.8 Total Bilirubin 1.7 H AST 19 ALT 20 Alkaline Phosphatase 71 Total Creatine Kinase 31 L C-Reactive Protein 1.3 H Total Protein 7.0 Albumin 4.0 Lipase 114 Urine Eosinophils Rare Ur Random Sodium 34 Ur Random Potassium 68.9 Urine Creatinine 123.8 Blood Type Antibody Screen 03/18/23 03/18/23 03/18/23 11:51 15:03 15:58 WBC RBC Hgb Hct MCV MCH MCHC RDW Plt Count MPV Immature Gran % (Auto) Neut % (Auto) Lymph % (Auto) Austin % (Auto) Eos % (Auto) Baso % (Auto) Lymph # (Auto) Austin # (Auto) Eos # (Auto) Baso # (Auto) Abs Immat Gran (auto) Absolute Neuts (auto) Absolute Nucleated RBC Nucleated RBC % PT INR APTT Puncture Site ABG pH ABG pCO2 ABG pO2 ABG PO2/FiO2 Ratio ABG HCO3 ABG O2 Saturation ABG O2 Content ABG Base Excess A-a Gradient Oxyhemoglobin Carboxyhemoglobin Methemoglobin Reduced Hemoglobin Total Hemoglobin O2 Delivery Device O2 Liters/Min Vent Rate FiO2 Expiratory Pressure Inspiratory Pressure Sodium Potassium Chloride Carbon Dioxide Anion Gap BUN Creatinine Estim Creat Clear Calc Estimated GFR Glucose POC Capillary Glucose 147 H 128 H Hemoglobin A1c Lactic Acid Calcium Phosphorus Magnesium Total Bilirubin AST ALT Alkaline Phosphatase Total Creatine Kinase C-Reactive Protein Total Protein Albumin Lipase Urine Eosinophils Ur Random Sodium Ur Random Potassium Urine Creatinine Blood Type O Positive Antibody Screen Negative 03/18/23 03/19/23 03/19/23 18:54 00:21 00:22 WBC RBC Hgb Hct MCV MCH MCHC RDW Plt Count MPV Immature Gran % (Auto) Neut % (Auto) Lymph % (Auto) Austin % (Auto)
[2023-03-19] MEDS: ALBUMIN HUMAN 25% 25 GM/100 ML 100 ML IVPB ×3 (07:53→20:07)
[2023-03-19] MEDS: PANTOPRAZOLE SODIUM IV 40 MG VIAL IV PUSH ×2 (09:22→20:07)
[2023-03-19] MEDS: FLUCONAZOLE 100 MG/NACL 50 ML 100 MG/50 ML BTL 50 MG IVPB (09:22)
[2023-03-19 12:18] LABS: Glucose Point of Care 114 mg/dl (65-105)
--- NOTE | 2023-03-19 13:36 | WPDINTPN ---
Progress Note: A&P Assessment and Plan (1) Perforated abdominal viscus: Code(s): R19.8 - Other specified symptoms and signs involving the digestive system and abdomen Status: Inactive Assessment and Plan: 03/18: Patient presented to the [facility] with abdominal pain and distention along with nausea and vomiting. No bowel movements for 2 days prior to admission, no fevers or chills, had some difficulty breathing secondary to the abdominal distension -The initial reading by [facility] on the CT scan of the abdomen and pelvis stated gallbladder wall thickening and pericholecystic fluid consistent with acute cholecystitis. Patient was going to be admitted to the medical floor. - Revised reading of the CT scan of the abdomen and pelvis showed free intraperitoneal gas consistent with perforated viscus, ulcer of the distal gastric antrum, small volume ascites, small right pleural effusion. - Surgeons were notified at [facility] and patient was transferred to the ICU for further management. -discussed with surgery, patient will be taken to the ER this afternoon. - blood cultures have been obtained -started patient on Zosyn and vancomycin along with fluconazole -patient did take his Eliquis, INR is 1.9, surgery requested Kcentra to be given, which has been ordered -PICC line placed 03/18/2023: Status post laparotomy and repair of gastric antral ulcer with modified Kvng patch -surgery following, discussed with them regarding diet (2) Vomiting: Code(s): R11.10 - Vomiting, unspecified Status: Acute Assessment and Plan: Resolved NG tube was inserted with improvement in nausea and vomiting (3) Essential hypertension: Code(s): I10 - Essential (primary) hypertension Status: Acute Assessment and Plan: Blood pressures are stable, hold all antihypertensives patient is NPO (4) Diabetes mellitus type 2 in obese: Code(s): E11.69 - Type 2 diabetes mellitus with other specified complication; E66.9 - Obesity, unspecified Status: Acute Assessment and Plan: Accu-Cheks and sliding scale insulin (5) CHF (congestive heart failure): Qualifiers: Heart failure type: unspecified Heart failure chronicity: unspecified Qualified Code(s): I50.9 - Heart failure, unspecified Code(s): I50.9 - Heart failure, unspecified Status: Acute Assessment and Plan: Patient has a history of CHF not specified if diastolic or systolic -chest x-ray does not look volume overloaded, patient does have some mild edema in his lower extremity -chest x-ray this morning the showed cardiomegaly (6) Atrial fibrillation: Code(s): I48.91 - Unspecified atrial fibrillation Status: Acute Assessment and Plan: History of atrial fibrillation status post pacemaker and defibrillator -currently rate controlled, paced rhythm Plan DVT prophylaxis: SCDs/enoxaparin Stress ulcer prophylaxis: Protonix Nutrition: NPO Code Status: Full code Critical Care Time Spent: 34 minutes -if okay with surgeon may transfer out of the ICU Discussed with patient at length regarding than code status, he would like to be a full code but does not want to be on machines for a prolonged amount of time. His son Lauri, would make decisions in case the patient is unable to make his own healthcare decisions. Bedside RN was present at this time. Patient is aware that he will be going for surgery today, 03/18 Due to a high probability of clinically significant, life threatening deterioration, the patient required my highest level of preparedness to intervene emergently and I personally spent this critical care time directly and personally managing the patient. This critical care time included obtaining a history; examining the patient; pulse oximetry; ordering and review of studies; arranging urgent treatment with development of a management plan; evaluation of patient'
--- NOTE | 2023-03-19 16:04 | PM.PNGS ---
Progress Note: A&P Assessment and Plan (1) Perforated abdominal viscus: Code(s): R19.8 - Other specified symptoms and signs involving the digestive system and abdomen Status: Inactive Assessment and Plan: S/p laparotomy and repair of perforated gastric ulcer yesterday. Continue NG tube decompression, bowel rest, and IV fluids. He is being transferred out of ICU to IMU status today. Continue IV antibiotics and fluconazole. Continue IV Protonix. Will eventually plan to get an upper GI prior to feeding in the next few days. (2) Atrial fibrillation: Code(s): I48.91 - Unspecified atrial fibrillation Status: Acute Assessment and Plan: Eliquis still on hold, currently on prophylactic-dosed Lovenox. Plan I have discussed the patient's case and plan of care with Dr. Serrato. Subjective Subjective Date/Time Seen: 03/19/23 16:04 Post Op day: 1 (laparotomy and repair of gastric antral ulcer with modified Kvng patch) Patient reports: no flatus and no bowel movement Interval history: Patient seen in ICU. He was taken off Bipap this morning and put on high flow O2, which he has been stable on throughout the day. He complains of abdominal pain with movement, but denies any pain when lying still. NG in place and appears to have about 300 cc of bilious output so far today. No flatus. No other complaints at this time. Longwall Foreman planning to downgrade to IMU status today. Review of Systems Review of Systems: All systems reviewed & are unremarkable except as noted in HPI and below Exam Const: General: comfortable and no acute distress Orientation/consciousness: patient oriented x3 GI: Inspection: distended, incision (upper midline incision dry and glue intact with no erythema) and other (ORQUIDEA drain with serosanguineous output) GI Palp: Yes Soft to palpation, Yes Tenderness to palpation present (GI) (mostly incisional tenderness with mild tenderness in the LUQ and RUQ), No Guarding due to palpation present (GI) and No Hernia present Auscultation: Hypoactive bowel sounds present Extrem: General: no calf tenderness and no edema Objective Data Vital Signs Vital Signs: Vital Signs - 24 hr 03/18/23 18:42 03/18/23 18:45 03/18/23 19:00 Temperature 97.8 F Pulse Rate 93 86 85 Respiratory Rate 14 14 15 Blood Pressure 98/83 L 112/71 112/78 Pulse Oximetry 95 95 93 Oxygen Delivery Simple Face Mask Simple Face Mask Nasal Cannula Oxygen Flow Rate 10 10 4 Fraction of Inspired Oxygen 03/18/23 19:15 03/18/23 19:30 03/18/23 21:02 Temperature Pulse Rate 94 94 84 Respiratory Rate 20 20 9 L Blood Pressure 113/77 113/77 Pulse Oximetry 92 92 Oxygen Delivery Nasal Cannula Simple Face Mask Oxygen Flow Rate 4 6 Fraction of Inspired Oxygen 03/18/23 20:30 03/18/23 21:00 03/19/23 00:00 Temperature Pulse Rate 9 L 85 84 Respiratory Rate 12 10 L Blood Pressure Pulse Oximetry 94 96 96 Oxygen Delivery High Flow Therapy with Na High Flow Therapy with Na High Flow Therapy with Na Oxygen Flow Rate 60 60 50 Fraction of Inspired Oxygen 85 85 80 03/19/23 00:45 03/18/23 20:00 03/19/23 00:00 Temperature 99.7 F H 98.5 F Pulse Rate 87 87 87 Respiratory Rate 24 H 12 12 Blood Pressure 115/75 105/68 Pulse Oximetry 96 91 97 Oxygen Delivery BiPAP Oxygen Flow Rate Fraction of Inspired Oxygen 03/19/23 02:00 03/19/23 00:00 03/19/23 01:30 Temperature 99.2 F 98.9 F Pulse Rate 84 80 84 Respiratory Rate 24 H 24 H Blood Pressure 119/71 105/67 Pulse Oximetry 97 97 Oxygen Delivery Oxygen Flow Rate Fraction of Inspired Oxygen 03/18/23 22:00 03/19/23 02:55 03/19/23 03:02 Temperature Pulse Rate 80 82 82 Respiratory Rate 13 24 H 24 H Blood Pressure 101/63 Pulse Oximetry 96 97 Oxygen Delivery BiPAP Oxygen Flow Rate Fraction of Inspired Oxygen 03/18/23 21:15 03/19/23 04:00 03/19/23 04:00 Temperature 99.4 F Pulse Rate 87 82 86 Respiratory Rate 12
[2023-03-19 18:33] LABS: Glucose Point of Care 80 mg/dl (65-105)
[2023-03-19] MEDS: VANCOMYCIN 1,750 MG/NS 500 ML 1,750 MG/500 ML BAG 250 MG IVPB (22:41)
[2023-03-20] VITALS (24 sets, daily range): BP systolic 130–155; BP diastolic 84–96; PULSE 80–94; RESP 14–21; TEMP 36.8–37.2; O2SAT 92–97
[2023-03-20] MEDS: PIPERACILLN/TAZ 3.375GM/NS50ML 3.375 GM/50 ML BAG IVPB ×5 (00:50→23:33)
[2023-03-20 00:53] LABS: Glucose Point of Care 75 mg/dl (65-105)
[2023-03-20] MEDS: ALBUMIN HUMAN 25% 25 GM/100 ML 100 ML IVPB (01:23)
[2023-03-20] MEDS: LACTATED RINGERS 1,000 ML 100 ML IV CONT ×2 (01:24→11:59)
[2023-03-20] MEDS: ALBUTEROL SULFATE NEB 2.5 MG/3 ML INH INHALATION ×4 (02:13→20:30)
[2023-03-20] MEDS: IPRATROPIUM BR 0.02% INH SOLN 0.5 MG/2.5 ML VIAL INHALATION ×4 (02:13→20:30)
[2023-03-20] MEDS: CENTRAL LINE FLUSH 10 ML IV PUSH ×3 (06:04→21:24)
[2023-03-20 06:19] LABS: Basophils Percent Auto 0.2 % (0.2-1.2); Eosinophils Percent Auto 0.1 % (0-4.4); Hematocrit 38.4 % (42.0-52.0); Hemoglobin 11.8 g/dL (14.0-18.0); Immature Granulocyte Absolute 0.04 K/mm3 (0.00-0.031); Immature Granulocyte Percent A 0.4 % (0-0.5); Lymphocytes Percent Auto 9.9 % (18.3-44.2); Mean Corpuscular HGB Conc 30.7 g/dl (32-36); Mean Corpuscular Volume 100.8 fl (80-100); Monocytes Absolute Auto 0.8 K/mm3 (0.1-0.6); Monocytes Percent Auto 8.1 % (2.6-8.5); Neutrophils Absolute Auto 8.3 K/mm3 (1.3-6.7); Neutrophils Percent Auto 81.3 % (45.5-73.1); Platelet Count Result 106 k/mm3 (150-375); Red Blood Count 3.81 M/mm3 (4.6-6.20); Red Cell Distribution Width 13.5 % (11.5-14.5); White Blood Count 10.1 K/mm3 (4.5-10.0)
[2023-03-20 06:26] LABS: Alanine Aminotransferase 13 U/L (6-50); Albumin Level 2.8 g/dL (3.5-5.1); Alkaline Phosphatase 33 U/L (38-126); Anion Gap 8 mmol/L (8-16); Aspartate Amino Transferase 16 U/L (17-59); Bilirubin,Total 0.8 mg/dL (0.2-1.3); Blood Urea Nitrogen 26 mg/dL (9-20); Calcium 8.6 mg/dL (8.4-10.2); Carbon Dioxide 26 mmol/L (22-30); Chloride 104 mmol/L (98-107); Estimated CRCL calculation 83 ml/min; Estimated Glomerular Filt Rate > 60; Glucose 65 mg/dL (65-110); Magnesium 1.7 mg/dL (1.6-2.3); Phosphorus 2.6 mg/dL (2.5-4.5); Potassium 4.2 mmol/L (3.4-5.0); Sodium 138 mmol/L (137-145)
[2023-03-20 07:00] LABS: Glucose Point of Care 71 mg/dl (65-105)
[2023-03-20] MEDS: ENOXAPARIN 40 MG/0.4 ML SYRINGE SUB-Q (08:13)
[2023-03-20] MEDS: PANTOPRAZOLE SODIUM IV 40 MG VIAL IV PUSH ×2 (08:14→21:24)
[2023-03-20] MEDS: FLUCONAZOLE 100 MG/NACL 50 ML 100 MG/50 ML BTL 50 MG IVPB (08:14)
[2023-03-20] MEDS: DEXTROSE 50% 25 GM/50 ML SYRINGE IV PUSH ×2 (11:44→19:51)
[2023-03-20 12:08] LABS: Glucose Point of Care 115 mg/dl (65-105)
[2023-03-20 12:08] LABS: Glucose Point of Care 67 mg/dl (65-105)
--- NOTE | 2023-03-20 13:50 | PM.PNGS ---
Progress Note: A&P Assessment and Plan (1) Perforated abdominal viscus: Code(s): R19.8 - Other specified symptoms and signs involving the digestive system and abdomen Status: Inactive Assessment and Plan: Postop day 2 following laparotomy and repair of perforated gastric ulcer. Continue NG tube decompression, bowel rest, and IV fluids. Continue IV antimicrobials and Protonix. Will order water soluble upper GI tomorrow morning. Continue NG decompression, bowel rest, and IV fluids for today. (2) Atrial fibrillation: Code(s): I48.91 - Unspecified atrial fibrillation Status: Acute Assessment and Plan: Continue to hold Eliquis today. Currently on prophylactic-dosed Lovenox. Plan I have discussed the patient's case and plan of care with Dr. Serrato. Subjective Subjective Date/Time Seen: 03/20/23 13:50 Post Op day: 2 (laparotomy and repair of gastric antral ulcer with modified Knvg patch) Patient reports: no new complaints, no flatus, no bowel movement and afebrile Interval history: Patient seen in ICU as IMU overflow. He had only 250 cc out of his NG tube overnight and it appears less bilious today. He reports some incisional abdominal pain with movement, but not having any pain at this time. He is currently sitting up in the chair. He is still on high flow O2 that is down slightly from yesterday per nursing. Hgb dropped from 14 to 11.8 today. He is hemodynamically stable and abdomen is soft. Review of Systems Review of Systems: All systems reviewed & are unremarkable except as noted in HPI and below Exam Const: General: comfortable and no acute distress Orientation/consciousness: patient oriented x3 GI: Inspection: distended, incision (upper midline incision dry and glue intact with no erythema) and other (ORQUIDEA drain with serosanguineous output) GI Palp: Yes Soft to palpation, Yes Tenderness to palpation present (GI) (across the upper abdomen and near his midline incision) and No Guarding due to palpation present (GI) Auscultation: Hypoactive bowel sounds present Urinary Catheter: Urinary Catheter: patent and draining and urine clear Extrem: General: no calf tenderness and no edema Objective Data Vital Signs Vital Signs: Vital Signs - 24 hr 03/19/23 14:00 03/19/23 14:00 03/19/23 14:33 Temperature 99.6 F Pulse Rate 83 83 82 Respiratory Rate 18 18 Blood Pressure 120/82 Pulse Oximetry 96 Oxygen Delivery Oxygen Flow Rate Fraction of Inspired Oxygen 03/19/23 14:35 03/19/23 14:53 03/19/23 14:53 Temperature Pulse Rate 82 87 80 Respiratory Rate 18 22 H 20 Blood Pressure Pulse Oximetry 95 95 Oxygen Delivery High Flow Therapy with Na High Flow Therapy with Na Oxygen Flow Rate 50 45 Fraction of Inspired Oxygen 36 36 03/19/23 16:00 03/19/23 16:00 03/19/23 16:00 Temperature 99.6 F Pulse Rate 80 80 80 Respiratory Rate 14 14 Blood Pressure 115/78 Pulse Oximetry 97 97 Oxygen Delivery High Flow Therapy with Na Oxygen Flow Rate 50 Fraction of Inspired Oxygen 36 03/19/23 18:00 03/19/23 20:14 03/19/23 20:00 Temperature Pulse Rate 80 80 82 Respiratory Rate 22 H 15 Blood Pressure Pulse Oximetry 97 96 Oxygen Delivery High Flow Therapy with Na High Flow Therapy with Na Oxygen Flow Rate 45 50 Fraction of Inspired Oxygen 37 36 03/19/23 20:00 03/19/23 20:00 03/19/23 20:24 Temperature 99.5 F Pulse Rate 82 82 86 Respiratory Rate 15 20 Blood Pressure 131/82 Pulse Oximetry 96 Oxygen Delivery Oxygen Flow Rate Fraction of Inspired Oxygen 03/19/23 22:00 03/20/23 00:00 03/20/23 00:00 Temperature 98.8 F Pulse Rate 80 82 82 Respiratory Rate 16 16 Blood Pressure 131/84 Pulse Oximetry 97 97 Oxygen Delivery High Flow Therapy with Na Oxygen Flow Rate 50 Fraction of Inspired Oxygen 36 03/20/23 00:00 03/20/23 02:16 03/20/23 02:16 Temperature Pulse Rate 82 81 81 Respiratory Rate 20 20
[2023-03-20] MEDS: VANCOMYCIN 1,750 MG/NS 500 ML 1,750 MG/500 ML BAG 250 MG IVPB (16:42)
[2023-03-20 18:10] LABS: Glucose Point of Care 72 mg/dl (65-105)
[2023-03-20 19:44] LABS: Glucose Point of Care 62 mg/dl (65-105)
--- NOTE | 2023-03-20 19:50 | PM.EVENT ---
Event Note Event Note Event Note: Cross Coverage currently NPO with NG tube for decompression, bowel rest and IVF - postop day 2 for perforated gastric ulcer s/p laparotomy and repair. patient's glucose has been trending downward over the last 24 hours. most recent BS was 62 @19:42 (03/20). 12.5 G of D50 amp to be given. LR 100 mL/hr exchanged to D10 10 mL/hr. current I&O balance is +5835. has hx of CHF and DM. continue to monitor glucose.
[2023-03-20] MEDS: DEXTROSE 10% 500 ML 10 ML IV CONT (19:58)
[2023-03-20 20:13] LABS: Glucose Point of Care 82 mg/dl (65-105)
[2023-03-20 21:20] LABS: Glucose Point of Care 87 mg/dl (65-105)
[2023-03-20] MEDS: FUROSEMIDE INJ 40 MG/4 ML VIAL 20 MG IV PUSH (21:40)
--- NOTE | 2023-03-20 21:49 | PM.IMPN ---
Progress Note: A&P Assessment and Plan (1) Perforated abdominal viscus: Code(s): R19.8 - Other specified symptoms and signs involving the digestive system and abdomen Status: Inactive (2) CHF (congestive heart failure): Qualifiers: Heart failure type: unspecified Heart failure chronicity: unspecified Qualified Code(s): I50.9 - Heart failure, unspecified Code(s): I50.9 - Heart failure, unspecified Status: Acute (3) Atrial fibrillation: Code(s): I48.91 - Unspecified atrial fibrillation Status: Acute (4) Diabetes mellitus type 2 in obese: Code(s): E11.69 - Type 2 diabetes mellitus with other specified complication; E66.9 - Obesity, unspecified Status: Acute (5) Essential hypertension: Code(s): I10 - Essential (primary) hypertension Status: Acute (6) BPH (benign prostatic hyperplasia): Code(s): N40.0 - Benign prostatic hyperplasia without lower urinary tract symptoms Status: Acute Plan Patient transferred from [facility] ER with the perforated abdominal viscus for emergent surgery Patient taken to the OR emergently for?laparotomy and repair of gastric antral ulcer with modified Kvng patch ... POD # 2 Continue with the ICU care, patient has been downgraded to IMu status His blood sugar levels are running S in 80s hence patient started on IV D10 at 10 mL per DC IV D10 when patient's blood sugar levels remain between 120-150 after 2 consecutive q.2 hours checks Patient has been aggressively hydrated with the net fluid balance of +6 L since admission DC LR at 100 cc/hour Patient given Lasix 20 mg IV x1 dose Keep patient NPO with NG tube for decompression Continue with bowel rest Closely coordinate with general surgery for further management Continue with p.r.n. meds for postop pain, nausea or vomiting ? Patient seen and examined at bedside during my morning rounds ? Collaborated with patient's nurse at the bedside in detail and addressed all concerns ? Labs, electrolytes, radiology, investigations and test results reviewed ? Consult/Nursing/Ancilliary notes on the chart reviewed and appreciated ? Spoke with patient/family at the bedside and answered all the questions that they had Repeat labs in a.m. Electrolyte replacement as per protocol. Patient will be monitored very closely on the floor. Further recommendations as per the hospital course. Subjective Date/time seen: 12/28/23 21:49 Interval history: Patient seen and evaluated at bedside. His sugars have been running low hence patient started on D10. He is feeling weak and tired Review of Systems Review of Systems: 14 systems were reviewed with pertinent positives and negatives per HPI. Except as documented in the HPI/progress notes, all other systems were reviewed and are negative. All systems reviewed & are unremarkable except as noted in HPI and below Exam Narrative: PHYSICAL EXAMINATION: Vital signs: Please see the chart General physical exam: Head/eyes: Atraumatic, EOMI, PERRLA ENT: Moist mucous membranes, nasal passages clear Neck: Supple, full range of motion, trachea midline CVS: S1 + S2, regular rate and rhythm, no murmurs Respiratory: Bilaterally fair air entry in both lung ricardo, mild B/L crackles, symmetric chest expansion, no distress Abdomen: Soft, +Postop bandage in place, ORQUIDEA drain in place draining,+ hypoactive bowel sounds Extremities: No clubbing, no cyanosis, no edema, no calf tenderness Musculoskeletal: Moves all, adequate range of motion, no muscle spasms Skin: Warm, dry, no jaundice, no cyanosis Neurological: Awake, alert, oriented x 3, cranial nerves II-XII intact, no focal neurological deficits Psychiatric: Normal mood, non suicidal Objective Data Vital Signs Vital Signs: Vital Signs - 24 hr 03/19/23 22:00 03/20/23 00:00 03/20/23 00:00 Temperature 37.1 C Pulse Rate 80 82 82 Respiratory Rate 16 16 Blood Pres
[2023-03-21] VITALS (28 sets, daily range): BP systolic 144–158; BP diastolic 83–105; PULSE 80–107; RESP 16–22; TEMP 37–37.6; O2SAT 91–98
[2023-03-21 00:20] LABS: Glucose Point of Care 81 mg/dl (65-105)
[2023-03-21 00:59] LABS: Glucose Point of Care 89 mg/dl (65-105)
--- NOTE | 2023-03-21 04:23 | PCRCNOTE ---
Patient asked to not be awakened for his 0200 updraft treatment. Treatment to resume at 0800.
[2023-03-21 04:40] LABS: Glucose Point of Care 106 mg/dl (65-105)
[2023-03-21 04:43] LABS: Hematocrit 43.6 % (42.0-52.0); Hemoglobin 13.7 g/dL (14.0-18.0); Mean Corpuscular HGB Conc 31.4 g/dl (32-36); Mean Corpuscular Hemoglobin 31.2 pg (26-34); Mean Corpuscular Volume 99.3 fl (80-100); Platelet Count Result 137 k/mm3 (150-375); Red Blood Count 4.39 M/mm3 (4.6-6.20); Red Cell Distribution Width 13.4 % (11.5-14.5); White Blood Count 12.3 K/mm3 (4.5-10.0)
[2023-03-21 04:54] LABS: Anion Gap 6 mmol/L (8-16); Blood Urea Nitrogen 24 mg/dL (9-20); Calcium 8.5 mg/dL (8.4-10.2); Carbon Dioxide 28 mmol/L (22-30); Chloride 103 mmol/L (98-107); Estimated CRCL calculation 83 ml/min; Estimated Glomerular Filt Rate > 60; Glucose 108 mg/dL (65-110); Potassium 3.8 mmol/L (3.4-5.0); Sodium 137 mmol/L (137-145)
[2023-03-21] MEDS: PIPERACILLN/TAZ 3.375GM/NS50ML 3.375 GM/50 ML BAG IVPB ×3 (06:34→17:54)
[2023-03-21] MEDS: CENTRAL LINE FLUSH 10 ML IV PUSH ×3 (06:35→20:09)
--- NOTE | 2023-03-21 07:41 | PM.PNGS ---
Progress Note: A&P Assessment and Plan (1) Perforated gastric ulcer: Code(s): K25.5 - Chronic or unspecified gastric ulcer with perforation Status: Acute Assessment and Plan: will get UGI today, if no leak will remove NG and start clears Subjective Subjective Date/Time Seen: 03/21/23 07:41 Interval history: feels ok this am, wants something to drink Review of Systems Review of Systems: All systems reviewed & are unremarkable except as noted in HPI and below Exam Const: General: cooperative, comfortable, no acute distress, ill appearing and obese Resp: Auscultation: diminished lung sounds Cardio: Rate: regular rate Rhythm: regular rhythm GI: Inspection: normal to inspection, distended, incision and obesity GI Palp: Yes abdominal tenderness, Yes Soft to palpation, Yes Tenderness to palpation present (GI), No Guarding due to palpation present (GI) and No Rigid due to palpation Objective Data Vital Signs Vital Signs: Vital Signs - 24 hr 03/20/23 08:00 03/20/23 07:50 03/20/23 08:34 Temperature 36.8 C Pulse Rate 84 87 Respiratory Rate 20 18 Blood Pressure 142/96 H Pulse Oximetry 96 Oxygen Delivery High Flow Therapy with Na Oxygen Flow Rate 40 Fraction of Inspired Oxygen 03/20/23 08:00 03/20/23 08:00 03/20/23 10:00 Temperature Pulse Rate 92 83 Respiratory Rate Blood Pressure Pulse Oximetry 96 Oxygen Delivery High Flow Therapy with Na Oxygen Flow Rate 35 Fraction of Inspired Oxygen 35 03/20/23 10:10 03/20/23 12:00 03/20/23 12:00 Temperature Pulse Rate 81 86 Respiratory Rate 18 Blood Pressure Pulse Oximetry 95 96 Oxygen Delivery High Flow Therapy with Na High Flow Therapy with Na Oxygen Flow Rate 35 35 Fraction of Inspired Oxygen 35 35 03/20/23 12:00 03/20/23 13:25 03/20/23 13:25 Temperature 36.9 C Pulse Rate 82 84 84 Respiratory Rate 16 18 18 Blood Pressure 143/84 H Pulse Oximetry 95 96 Oxygen Delivery High Flow Therapy with Na Oxygen Flow Rate 35 Fraction of Inspired Oxygen 35 03/20/23 13:35 03/20/23 14:00 03/20/23 15:33 Temperature Pulse Rate 85 94 Respiratory Rate 18 Blood Pressure Pulse Oximetry 94 Oxygen Delivery High Flow Therapy with Na Oxygen Flow Rate 30 Fraction of Inspired Oxygen 30 03/20/23 16:07 03/20/23 16:00 03/20/23 16:00 Temperature 37.2 C Pulse Rate 82 86 Respiratory Rate 18 18 Blood Pressure 155/95 H Pulse Oximetry 94 94 96 Oxygen Delivery High Flow Therapy with Na High Flow Therapy with Na Oxygen Flow Rate 35 30 Fraction of Inspired Oxygen 35 30 03/20/23 16:00 03/20/23 18:00 03/20/23 20:00 Temperature Pulse Rate 80 80 Respiratory Rate Blood Pressure Pulse Oximetry 92 Oxygen Delivery High Flow Therapy with Na Oxygen Flow Rate 30 Fraction of Inspired Oxygen 30 03/20/23 20:30 03/20/23 21:15 03/20/23 20:45 Temperature Pulse Rate 86 89 89 Respiratory Rate 19 21 H Blood Pressure Pulse Oximetry 93 Oxygen Delivery High Flow Therapy with Na Oxygen Flow Rate 30 Fraction of Inspired Oxygen 30 03/20/23 20:00 03/20/23 20:00 03/20/23 21:46 Temperature 37.2 C Pulse Rate 84 85 87 Respiratory Rate 18 Blood Pressure 150/93 H Pulse Oximetry 93 Oxygen Delivery Oxygen Flow Rate Fraction of Inspired Oxygen 03/21/23 00:00 03/21/23 00:00 03/21/23 00:00 Temperature 37.2 C Pulse Rate 80 87 Respiratory Rate 17 Blood Pressure 146/89 H Pulse Oximetry 92 91 Oxygen Delivery High Flow Therapy with Na Oxygen Flow Rate 30 Fraction of Inspired Oxygen 30 03/21/23 04:00 03/21/23 02:00 03/21/23 04:00 Temperature 37.1 C Pulse Rate 85 84 Respiratory Rate 18 Blood Pressure 154/98 H Pulse Oximetry 92 92 Oxygen Delivery High Flow Therapy with Na Oxygen Flow Rate 30 Fraction of Inspired Oxygen 30 Intake/Output Intake/Output: Intake & Output 02/22
[2023-03-21] MEDS: PANTOPRAZOLE SODIUM IV 40 MG VIAL IV PUSH ×2 (08:51→20:09)
[2023-03-21] MEDS: FLUCONAZOLE 100 MG/NACL 50 ML 100 MG/50 ML BTL 50 MG IVPB (08:51)
[2023-03-21] MEDS: ENOXAPARIN 40 MG/0.4 ML SYRINGE SUB-Q (08:51)
[2023-03-21] MEDS: ALBUTEROL SULFATE NEB 2.5 MG/3 ML INH INHALATION ×3 (09:51→20:52)
[2023-03-21] MEDS: IPRATROPIUM BR 0.02% INH SOLN 0.5 MG/2.5 ML VIAL INHALATION ×3 (09:51→20:52)
[2023-03-21 10:42] LABS: Vancomycin Trough 12.4 ug/mL (10.0-20.0)
[2023-03-21] MEDS: DEXTROSE 10% 500 ML 40 ML IV CONT (11:30)
[2023-03-21 11:42] LABS: Glucose Point of Care 117 mg/dl (65-105)
[2023-03-21] MEDS: VANCOMYCIN 1,750 MG/NS 500 ML 1,750 MG/500 ML BAG 250 MG IVPB ×2 (11:52→22:56)
--- NOTE | 2023-03-21 13:10 | PC.NURSE ---
notified patient of one time dose morphine ordered until can take oral; patient refused morphine and states pain is 3/10 and will wait until later and hopefully take the oral medication
[2023-03-21 17:02] LABS: Glucose Point of Care 134 mg/dl (65-105)
--- NOTE | 2023-03-21 20:22 | PM.IMPN ---
Progress Note: A&P Assessment and Plan (1) Perforated abdominal viscus: Code(s): R19.8 - Other specified symptoms and signs involving the digestive system and abdomen Status: Inactive (2) CHF (congestive heart failure): Qualifiers: Heart failure type: unspecified Heart failure chronicity: unspecified Qualified Code(s): I50.9 - Heart failure, unspecified Code(s): I50.9 - Heart failure, unspecified Status: Acute (3) Atrial fibrillation: Code(s): I48.91 - Unspecified atrial fibrillation Status: Acute (4) Diabetes mellitus type 2 in obese: Code(s): E11.69 - Type 2 diabetes mellitus with other specified complication; E66.9 - Obesity, unspecified Status: Acute (5) Essential hypertension: Code(s): I10 - Essential (primary) hypertension Status: Acute (6) BPH (benign prostatic hyperplasia): Code(s): N40.0 - Benign prostatic hyperplasia without lower urinary tract symptoms Status: Acute Plan Patient transferred from [facility] ER with the perforated abdominal viscus for emergent surgery Patient taken to the OR emergently for?laparotomy and repair of gastric antral ulcer with modified Kvng patch ... POD # 3 Continue with the ICU care, patient has been downgraded to IMU status His blood sugar levels were running in 80s hence patient started on IV D10 at 10 mL per DC IV D10 when patient's blood sugar levels remain between 120-150 after 2 consecutive q.2 hours checks Patient has been aggressively hydrated with the net fluid balance of +6 L since admission DC LR at 100 cc/hour Patient given Lasix 20 mg IV x1 dose Renal function improved, stable and at baseline Upper GI series done today which revealed no external monitor leakage of contrast DC NPO, patient started on clear liquid diet as per General surgery Closely coordinate with general surgery for further management IV morphine 2 mg x1 dose ordered for postop pain, to be switched to tramadol 50 mg q.8 hours as needed Continue with p.r.n. meds for postop pain, nausea or vomiting ? Patient seen and examined at bedside during my morning rounds ? Collaborated with patient's nurse at the bedside in detail and addressed all concerns ? Labs, electrolytes, radiology, investigations and test results reviewed ? Consult/Nursing/Ancilliary notes on the chart reviewed and appreciated ? Spoke with patient/family at the bedside and answered all the questions that they had Repeat labs in a.m. Electrolyte replacement as per protocol. Patient will be monitored very closely on the floor. Further recommendations as per the hospital course. Time Spent With Patient Time with patient: 25 - 35 minutes Subjective Date/time seen: 03/21/23 20:22 Interval history: Patient sitting in chair to my morning rounds. Blood sugar levels are holding in normal range. Patient complains of postop pain at times. Review of Systems Review of Systems: 14 systems were reviewed with pertinent positives and negatives per HPI. Except as documented in the HPI/progress notes, all other systems were reviewed and are negative. All systems reviewed & are unremarkable except as noted in HPI and below Exam Narrative: PHYSICAL EXAMINATION: Vital signs: Please see the chart General physical exam: Head/eyes: Atraumatic, EOMI, PERRLA ENT: Moist mucous membranes, nasal passages clear Neck: Supple, full range of motion, trachea midline CVS: S1 + S2, regular rate and rhythm, no murmurs Respiratory: Bilaterally fair air entry in both lung ricardo, mild B/L crackles, symmetric chest expansion, no distress Abdomen: Soft, +Postop bandage in place, ORQUIDEA drain in place draining,+ hypoactive bowel sounds Extremities: No clubbing, no cyanosis, no edema, no calf tenderness Musculoskeletal: Moves all, adequate range of motion, no muscle spasms Skin: Warm, dry, no jaundice, no cyanosis Neurological: Awake, alert, oriented x 3, cran
[2023-03-21 20:29] LABS: Glucose Point of Care 144 mg/dl (65-105)
--- NOTE | 2023-03-21 21:57 | PC.NURSE ---
This patient, Cristi Broussard, was received from [[id number] ] on 03/21/23 at 2158. Patient/family oriented to unit policies and routines
[2023-03-22] VITALS (24 sets, daily range): BP systolic 137–159; BP diastolic 74–109; PULSE 82–112; RESP 16–20; TEMP 35.7–37.1; O2SAT 92–98
[2023-03-22] MEDS: PIPERACILLN/TAZ 3.375GM/NS50ML 3.375 GM/50 ML BAG IVPB ×4 (01:04→17:46)
[2023-03-22 01:09] LABS: Glucose Point of Care 125 mg/dl (65-105)
[2023-03-22] MEDS: ALBUTEROL SULFATE NEB 2.5 MG/3 ML INH INHALATION ×3 (02:41→13:32)
[2023-03-22] MEDS: IPRATROPIUM BR 0.02% INH SOLN 0.5 MG/2.5 ML VIAL INHALATION ×3 (02:41→13:32)
[2023-03-22 04:40] LABS: Basophils Percent Auto 0.4 % (0.2-1.2); Eosinophils Absolute Auto 0.2 K/mm3 (0-0.3); Eosinophils Percent Auto 2.4 % (0-4.4); Hematocrit 41.7 % (42.0-52.0); Hemoglobin 13.4 g/dL (14.0-18.0); Immature Granulocyte Absolute 0.04 K/mm3 (0.00-0.031); Immature Granulocyte Percent A 0.4 % (0-0.5); Immature Platelet Fraction Pct 5.4 % (0.9-11.2); Lymphocytes Absolute Auto 0.95 K/mm3 (0.9-3.2); Lymphocytes Percent Auto 10.2 % (18.3-44.2); Mean Corpuscular HGB Conc 32.1 g/dl (32-36); Mean Corpuscular Hemoglobin 31.5 pg (26-34); Mean Corpuscular Volume 97.9 fl (80-100); Mean Platelet Volume 10.7 fl (7.4-10.4); Monocytes Percent Auto 10.2 % (2.6-8.5); Neutrophils Absolute Auto 7.1 K/mm3 (1.3-6.7); Neutrophils Percent Auto 76.4 % (45.5-73.1); Platelet Count Result 118 k/mm3 (150-375); Red Blood Count 4.26 M/mm3 (4.6-6.20); Red Cell Distribution Width 13.2 % (11.5-14.5); White Blood Count 9.3 K/mm3 (4.5-10.0)
[2023-03-22 04:49] LABS: Anion Gap 6 mmol/L (8-16); Blood Urea Nitrogen 16 mg/dL (9-20); Calcium 8.2 mg/dL (8.4-10.2); Carbon Dioxide 30 mmol/L (22-30); Chloride 103 mmol/L (98-107); Estimated CRCL calculation 105 ml/min; Estimated Glomerular Filt Rate > 60; Glucose 109 mg/dL (65-110); Potassium 3.5 mmol/L (3.4-5.0); Sodium 139 mmol/L (137-145)
[2023-03-22] MEDS: CENTRAL LINE FLUSH 10 ML IV PUSH ×3 (06:13→21:29)
[2023-03-22] MEDS: ENOXAPARIN 40 MG/0.4 ML SYRINGE SUB-Q (10:14)
[2023-03-22] MEDS: PANTOPRAZOLE SODIUM IV 40 MG VIAL IV PUSH ×2 (10:15→21:28)
[2023-03-22] MEDS: FLUCONAZOLE 100 MG/NACL 50 ML 100 MG/50 ML BTL 50 MG IVPB (10:18)
--- NOTE | 2023-03-22 11:01 | PM.PNGS ---
Progress Note: A&P Assessment and Plan (1) Perforated gastric ulcer: Code(s): K25.5 - Chronic or unspecified gastric ulcer with perforation Status: Acute Assessment and Plan: baljeet xavier, exam benign, will ADAT, cont abx, PPI, OOB/IS Subjective Subjective Date/Time Seen: 03/22/23 11:01 Interval history: feels good, NG out, baljeet clears Review of Systems Review of Systems: All systems reviewed & are unremarkable except as noted in HPI and below Exam Const: General: cooperative, comfortable and no acute distress Resp: Auscultation: clear to auscultation bilaterally Cardio: Rate: regular rate Rhythm: regular rhythm GI: Inspection: distended and incision GI Palp: Yes abdominal tenderness, Yes Soft to palpation, Yes Tenderness to palpation present (GI), No Guarding due to palpation present (GI) and No Rigid due to palpation Objective Data Vital Signs Vital Signs: Vital Signs - 24 hr 03/21/23 11:43 03/21/23 12:00 03/21/23 12:00 Temperature 37.2 C Pulse Rate 90 84 Respiratory Rate 18 Blood Pressure 145/83 H Pulse Oximetry 96 97 Oxygen Delivery High Flow Nasal Cannula Oxygen Flow Rate 8 Fraction of Inspired Oxygen 03/21/23 13:14 03/21/23 11:15 03/21/23 13:00 Temperature Pulse Rate Respiratory Rate Blood Pressure Pulse Oximetry 97 98 97 Oxygen Delivery High Flow Nasal Cannula High Flow Nasal Cannula High Flow Nasal Cannula Oxygen Flow Rate 6 9 6 Fraction of Inspired Oxygen 03/21/23 14:33 03/21/23 14:35 03/21/23 14:00 Temperature Pulse Rate 95 95 85 Respiratory Rate 19 19 Blood Pressure Pulse Oximetry 96 Oxygen Delivery High Flow Nasal Cannula Oxygen Flow Rate 6 Fraction of Inspired Oxygen 03/21/23 14:49 03/21/23 15:43 03/21/23 16:00 Temperature 37.2 C Pulse Rate 88 107 H Respiratory Rate 22 H 18 Blood Pressure 147/84 H Pulse Oximetry 95 95 Oxygen Delivery High Flow Nasal Cannula Oxygen Flow Rate 4 Fraction of Inspired Oxygen 03/21/23 16:00 03/21/23 18:03 03/21/23 18:00 Temperature Pulse Rate 95 96 102 H Respiratory Rate Blood Pressure Pulse Oximetry 94 Oxygen Delivery High Flow Nasal Cannula Oxygen Flow Rate 4 Fraction of Inspired Oxygen 03/21/23 20:00 03/21/23 20:00 03/21/23 20:00 Temperature 37.6 C Pulse Rate 101 H 101 H Respiratory Rate 21 H Blood Pressure 158/89 H Pulse Oximetry 94 94 Oxygen Delivery High Flow Nasal Cannula Oxygen Flow Rate 4 Fraction of Inspired Oxygen 03/21/23 20:54 03/21/23 21:54 03/21/23 23:03 Temperature Pulse Rate 103 H 102 H 103 H Respiratory Rate 17 Blood Pressure Pulse Oximetry Oxygen Delivery Oxygen Flow Rate Fraction of Inspired Oxygen 03/21/23 23:03 03/22/23 00:00 03/22/23 01:40 Temperature 36.7 C Pulse Rate 102 H 104 H 98 Respiratory Rate 20 16 Blood Pressure 159/109 H Pulse Oximetry 94 93 Oxygen Delivery High Flow Nasal Cannula Oxygen Flow Rate 4 Fraction of Inspired Oxygen 30 03/22/23 02:44 03/21/23 21:10 03/22/23 03:40 Temperature 36.0 C L Pulse Rate 98 105 H 96 Respiratory Rate 18 18 18 Blood Pressure 140/82 Pulse Oximetry 95 Oxygen Delivery Oxygen Flow Rate Fraction of Inspired Oxygen 03/22/23 04:00 03/22/23 04:00 03/22/23 06:00 Temperature Pulse Rate 94 94 96 Respiratory Rate 18 Blood Pressure Pulse Oximetry 95 Oxygen Delivery High Flow Nasal Cannula Oxygen Flow Rate 4 Fraction of Inspired Oxygen 30 03/22/23 08:10 03/22/23 08:19 03/22/23 08:00 Temperature 36.2 C L Pulse Rate 96 Respiratory Rate 18 20 Blood Pressure 158/74 H Pulse Oximetry 92 98 Oxygen Delivery High Flow Nasal Cannula Oxygen Flow Rate 3 Fraction of Inspired Oxygen Intake/Output Intake/Output: Intake & Output 03/19/23 03/20/23 03/21/23 03/22/23 23:59 23:59 23:59 23:59 Intake Total 3050 3350 1540 900 Output To
[2023-03-22 11:20] LABS: Vancomycin Trough 14.1 ug/mL (10.0-20.0)
[2023-03-22 12:09] LABS: Glucose Point of Care 108 mg/dl (65-105)
[2023-03-22] MEDS: VANCOMYCIN 2,000 MG/NS 500 ML 2,000 MG/500 ML BAG 250 MG IVPB (13:01)
[2023-03-22] MEDS: SOTALOL HCL 80 MG TABLET PO (17:45)
[2023-03-22] MEDS: lisinopriL 20 MG TABLET PO (17:45)
[2023-03-22] MEDS: carvediloL 25 MG TABLET PO (17:46)
[2023-03-22] MEDS: amLODIPine BESYLATE 5 MG TABLET PO (17:46)
--- NOTE | 2023-03-22 18:23 | PM.IMPN ---
Progress Note: A&P Assessment and Plan (1) Perforated abdominal viscus: Code(s): R19.8 - Other specified symptoms and signs involving the digestive system and abdomen Status: Inactive (2) CHF (congestive heart failure): Qualifiers: Heart failure type: unspecified Heart failure chronicity: unspecified Qualified Code(s): I50.9 - Heart failure, unspecified Code(s): I50.9 - Heart failure, unspecified Status: Acute (3) Atrial fibrillation: Code(s): I48.91 - Unspecified atrial fibrillation Status: Acute (4) Diabetes mellitus type 2 in obese: Code(s): E11.69 - Type 2 diabetes mellitus with other specified complication; E66.9 - Obesity, unspecified Status: Acute (5) Essential hypertension: Code(s): I10 - Essential (primary) hypertension Status: Acute (6) BPH (benign prostatic hyperplasia): Code(s): N40.0 - Benign prostatic hyperplasia without lower urinary tract symptoms Status: Acute Plan Patient transferred from [facility] ER with the perforated abdominal viscus for emergent surgery Patient taken to the OR emergently for?laparotomy and repair of gastric antral ulcer with modified Kvng patch ... POD # 4 Patient signed off by ICU care, patient has been downgraded to IMU status His blood sugar levels were running in 80s hence patient started on IV D10 at 10 mL per DC IV D10 when patient's blood sugar levels remain between 120-150 after 2 consecutive q.2 hours checks Patient has been aggressively hydrated with the net fluid balance of +6 L since admission DC LR at 100 cc/hour Patient given Lasix 20 mg IV x1 dose Renal function improved, stable and at baseline Upper GI series done today which revealed no external monitor leakage of contrast DC NPO, patient started on clear liquid diet which he tolerated well Advance diet as tolerated Advised patient to ambulate out of bed and participate in incentive spirometry Closely coordinate with general surgery for further management IV morphine 2 mg x1 dose ordered for postop pain, to be switched to tramadol 50 mg q.8 hours as needed Continue with p.r.n. meds for postop pain, nausea or vomiting Patient restarted on his home meds Patient started on Accu-Cheks with Insulin coverage as per protocol Hold off on Eliquis for now ... Resume when cleared by General surgery DC planning in next couple of days if he remains stable ? Patient seen and examined at bedside during my morning rounds ? Collaborated with patient's nurse at the bedside in detail and addressed all concerns ? Labs, electrolytes, radiology, investigations and test results reviewed ? Consult/Nursing/Ancilliary notes on the chart reviewed and appreciated ? Spoke with patient/family at the bedside and answered all the questions that they had Repeat labs in a.m. Electrolyte replacement as per protocol. Patient will be monitored very closely on the floor. Further recommendations as per the hospital course. I am signing off. Patient's medical care will be taken over by my covering hospitalist attending in am. Time Spent With Patient Time with patient: 25 - 35 minutes Subjective Date/time seen: 03/22/23 18:23 Interval history: Patient transferred to the floor. Tolerating clear diet. Diet advanced. Home meds initiated. Review of Systems Review of Systems: 14 systems were reviewed with pertinent positives and negatives per HPI. Except as documented in the HPI/progress notes, all other systems were reviewed and are negative. All systems reviewed & are unremarkable except as noted in HPI and below Exam Narrative: PHYSICAL EXAMINATION: Vital signs: Please see the chart General physical exam: Head/eyes: Atraumatic, EOMI, PERRLA ENT: Moist mucous membranes, nasal passages clear Neck: Supple, full range of motion, trachea midline CVS: S1 + S2, regular rate and rhythm, no murmurs Respiratory: Bilaterally fair
[2023-03-22 18:37] LABS: Glucose Point of Care 142 mg/dl (65-105)
[2023-03-22] MEDS: ATORVASTATIN 40 MG TABLET PO (21:29)
[2023-03-22 23:59] LABS: Glucose Point of Care 139 mg/dl (65-105)
[2023-03-23] VITALS (21 sets, daily range): BP systolic 135–147; BP diastolic 83–91; PULSE 75–97; RESP 17–22; TEMP 35.8–36.8; O2SAT 93–97
[2023-03-23] MEDS: PIPERACILLN/TAZ 3.375GM/NS50ML 3.375 GM/50 ML BAG IVPB ×4 (00:03→17:01)
[2023-03-23] MEDS: VANCOMYCIN 2,000 MG/NS 500 ML 2,000 MG/500 ML BAG 250 MG IVPB ×2 (00:04→14:30)
[2023-03-23] MEDS: IPRATROPIUM BR 0.02% INH SOLN 0.5 MG/2.5 ML VIAL INHALATION ×3 (03:20→13:15)
[2023-03-23 05:59] LABS: Glucose Point of Care 125 mg/dl (65-105)
[2023-03-23] MEDS: CENTRAL LINE FLUSH 10 ML IV PUSH ×3 (06:12→20:26)
[2023-03-23 06:16] LABS: Basophils Percent Auto 0.3 % (0.2-1.2); Eosinophils Absolute Auto 0.4 K/mm3 (0-0.3); Eosinophils Percent Auto 4.1 % (0-4.4); Hematocrit 43.6 % (42.0-52.0); Hemoglobin 13.7 g/dL (14.0-18.0); Immature Granulocyte Absolute 0.03 K/mm3 (0.00-0.031); Immature Granulocyte Percent A 0.3 % (0-0.5); Immature Platelet Fraction Pct 6.3 % (0.9-11.2); Lymphocytes Absolute Auto 1.02 K/mm3 (0.9-3.2); Mean Corpuscular HGB Conc 31.4 g/dl (32-36); Mean Corpuscular Hemoglobin 30.9 pg (26-34); Mean Corpuscular Volume 98.4 fl (80-100); Mean Platelet Volume 11.2 fl (7.4-10.4); Monocytes Absolute Auto 0.9 K/mm3 (0.1-0.6); Monocytes Percent Auto 9.9 % (2.6-8.5); Neutrophils Absolute Auto 6.9 K/mm3 (1.3-6.7); Neutrophils Percent Auto 74.4 % (45.5-73.1); Platelet Count Result 101 k/mm3 (150-375); Red Blood Count 4.43 M/mm3 (4.6-6.20); Red Cell Distribution Width 13.2 % (11.5-14.5); White Blood Count 9.3 K/mm3 (4.5-10.0)
[2023-03-23 06:25] LABS: Anion Gap 4 mmol/L (8-16); Blood Urea Nitrogen 15 mg/dL (9-20); Calcium 8.7 mg/dL (8.4-10.2); Carbon Dioxide 31 mmol/L (22-30); Chloride 105 mmol/L (98-107); Estimated CRCL calculation 83 ml/min; Estimated Glomerular Filt Rate > 60; Glucose 119 mg/dL (65-110); Potassium 3.5 mmol/L (3.4-5.0); Sodium 140 mmol/L (137-145)
[2023-03-23] MEDS: PANTOPRAZOLE SODIUM IV 40 MG VIAL IV PUSH ×2 (08:52→20:25)
[2023-03-23] MEDS: carvediloL 25 MG TABLET PO ×2 (08:54→16:56)
[2023-03-23] MEDS: allopurinoL 100 MG TABLET PO (08:54)
[2023-03-23] MEDS: FUROSEMIDE 40 MG TABLET PO (08:54)
[2023-03-23] MEDS: lisinopriL 20 MG TABLET PO ×2 (08:54→16:55)
[2023-03-23] MEDS: MONTELUKAST SODIUM 10 MG TABLET PO (08:54)
[2023-03-23] MEDS: amLODIPine BESYLATE 5 MG TABLET PO (08:55)
[2023-03-23] MEDS: SOTALOL HCL 80 MG TABLET PO ×2 (08:55→16:57)
[2023-03-23] MEDS: ENOXAPARIN 40 MG/0.4 ML SYRINGE SUB-Q (08:55)
--- NOTE | 2023-03-23 09:06 | PM.IMPN ---
Progress Note: A&P Assessment and Plan (1) Perforated abdominal viscus: Code(s): R19.8 - Other specified symptoms and signs involving the digestive system and abdomen Status: Inactive Assessment and Plan: 03/23/2023 pod 5. And doing well Discontinue fluconazole due to interaction with sotalol Continue vancomycin and Zosyn (2) CHF (congestive heart failure): Qualifiers: Heart failure type: unspecified Heart failure chronicity: unspecified Qualified Code(s): I50.9 - Heart failure, unspecified Code(s): I50.9 - Heart failure, unspecified Status: Acute Assessment and Plan: Clinically stable (3) Atrial fibrillation: Code(s): I48.91 - Unspecified atrial fibrillation Status: Acute Assessment and Plan: 03/23/2023 paced rhythm (4) Diabetes mellitus type 2 in obese: Code(s): E11.69 - Type 2 diabetes mellitus with other specified complication; E66.9 - Obesity, unspecified Status: Acute Assessment and Plan: 03/23/2023 FBS 125 (5) Essential hypertension: Code(s): I10 - Essential (primary) hypertension Status: Acute Assessment and Plan: 03/23/2023 fair control (6) BPH (benign prostatic hyperplasia): Code(s): N40.0 - Benign prostatic hyperplasia without lower urinary tract symptoms Status: Acute Subjective Date/time seen: 03/23/23 09:06 Interval history: Tolerating diet. Mild tenderness around incision. Denied other pain. Denied shortness of breath. Oxygen down to 1 liter/minute by nasal cannula. Review of Systems Review of Systems: All systems reviewed & are unremarkable except as noted in HPI and below Exam Narrative: HEENT: PERRL, sclerae nonicteric, pharyngeal mucosa pink and intact NECK: No JVD CHEST: Clear to auscultation. Normal effort. HEART: NL S1/S2, regular, no murmur ABDOMEN: BS+, soft, mild carlos-incisional tenderness without guarding or rebound EXTREMITIES: 1+ pitting edema bilateral legs NEUROLOGIC: CN intact and symmetric to inspection. MUSCULOSKELETAL: Tone and strength symmetric. PSYCH: Alert. Oriented to person, place, and time. Objective Data Vital Signs Vital Signs: Vital Signs - 24 hr 03/22/23 11:54 03/22/23 13:26 03/22/23 13:34 Temperature 97 F L Pulse Rate 112 H 102 H Respiratory Rate 20 18 Blood Pressure 141/83 H Pulse Oximetry 95 94 Oxygen Delivery High Flow Nasal Cannula Oxygen Flow Rate 2 03/22/23 13:42 03/22/23 12:00 03/22/23 16:00 Temperature 96.2 F L Pulse Rate 103 H 84 Respiratory Rate 18 20 Blood Pressure 149/88 H Pulse Oximetry 95 93 Oxygen Delivery High Flow Nasal Cannula Oxygen Flow Rate 4 03/22/23 17:45 03/22/23 17:46 03/22/23 10:00 Temperature Pulse Rate 99 88 108 H Respiratory Rate Blood Pressure Pulse Oximetry Oxygen Delivery Oxygen Flow Rate 03/22/23 12:00 03/22/23 14:00 03/22/23 16:00 Temperature Pulse Rate 106 H 92 83 Respiratory Rate Blood Pressure Pulse Oximetry Oxygen Delivery Oxygen Flow Rate 03/22/23 18:00 03/22/23 16:00 03/22/23 19:39 Temperature 98.7 F Pulse Rate 91 82 Respiratory Rate 19 Blood Pressure 153/79 H Pulse Oximetry 93 96 Oxygen Delivery High Flow Nasal Cannula Oxygen Flow Rate 4 03/22/23 20:00 03/22/23 20:00 03/22/23 22:00 Temperature Pulse Rate 93 85 Respiratory Rate Blood Pressure Pulse Oximetry 96 Oxygen Delivery High Flow Nasal Cannula Oxygen Flow Rate 2 03/22/23 23:48 03/23/23 00:00 03/23/23 00:00 Temperature 98.1 F Pulse Rate 85 85 Respiratory Rate 19 Blood Pressure 137/82 Pulse Oximetry 94 94 Oxygen Delivery High Flow Nasal Cannula Oxygen Flow Rate 2 03/23/23 03:21 03/23/23 02:00 03/23/23 04:15 Temperature 98.3 F Pulse Rate 83 86 80 Respiratory Rate 18 17 Blood Pressure 140/83 Pulse Oximetry 96 Oxygen Delivery Oxygen Flow Rate
[2023-03-23] MEDS: GLIMEPIRIDE 2 MG TABLET 4 MG PO (09:07)
[2023-03-23 10:18] LABS: Glucose Point of Care 115 mg/dl (65-105)
[2023-03-23 12:04] LABS: Vancomycin Trough 16.4 ug/mL (10.0-20.0)
--- NOTE | 2023-03-23 12:05 | PM.PNGS ---
Progress Note: A&P Assessment and Plan (1) Perforated gastric ulcer: Code(s): K25.5 - Chronic or unspecified gastric ulcer with perforation Status: Acute Assessment and Plan: doing well s/p repair, jacinto MEHTA, hopefully home tomorrow Subjective Subjective Date/Time Seen: 03/23/23 12:05 Interval history: feels good, having BM this am, baljeet full liquids Review of Systems Review of Systems: All systems reviewed & are unremarkable except as noted in HPI and below Exam Const: General: cooperative, comfortable, no acute distress and obese Resp: Auscultation: clear to auscultation bilaterally Cardio: Rate: regular rate Rhythm: regular rhythm GI: Inspection: normal to inspection, distended and incision GI Palp: Yes abdominal tenderness, Yes Soft to palpation, Yes Tenderness to palpation present (GI), No Guarding due to palpation present (GI) and No Rigid due to palpation Objective Data Vital Signs Vital Signs: Vital Signs - 24 hr 03/22/23 13:26 03/22/23 13:34 03/22/23 13:42 Temperature Pulse Rate 102 H 103 H Respiratory Rate 18 18 Blood Pressure Pulse Oximetry 94 Oxygen Delivery High Flow Nasal Cannula Oxygen Flow Rate 2 03/22/23 16:00 03/22/23 17:45 03/22/23 17:46 Temperature 35.7 C L Pulse Rate 84 99 88 Respiratory Rate 20 Blood Pressure 149/88 H Pulse Oximetry 93 Oxygen Delivery Oxygen Flow Rate 03/22/23 14:00 03/22/23 16:00 03/22/23 18:00 Temperature Pulse Rate 92 83 91 Respiratory Rate Blood Pressure Pulse Oximetry Oxygen Delivery Oxygen Flow Rate 03/22/23 16:00 03/22/23 19:39 03/22/23 20:00 Temperature 37.1 C Pulse Rate 82 93 Respiratory Rate 19 Blood Pressure 153/79 H Pulse Oximetry 93 96 Oxygen Delivery High Flow Nasal Cannula Oxygen Flow Rate 4 03/22/23 20:00 03/22/23 22:00 03/22/23 23:48 Temperature 36.7 C Pulse Rate 85 85 Respiratory Rate 19 Blood Pressure 137/82 Pulse Oximetry 96 94 Oxygen Delivery High Flow Nasal Cannula Oxygen Flow Rate 2 03/23/23 00:00 03/23/23 00:00 03/23/23 03:21 Temperature Pulse Rate 85 83 Respiratory Rate 18 Blood Pressure Pulse Oximetry 94 Oxygen Delivery High Flow Nasal Cannula Oxygen Flow Rate 2 03/23/23 02:00 03/23/23 04:15 03/23/23 04:00 Temperature 36.8 C Pulse Rate 86 80 84 Respiratory Rate 17 Blood Pressure 140/83 Pulse Oximetry 96 Oxygen Delivery Oxygen Flow Rate 03/23/23 04:00 03/23/23 06:00 03/23/23 07:30 Temperature Pulse Rate 80 84 Respiratory Rate 18 Blood Pressure Pulse Oximetry 96 97 Oxygen Delivery High Flow Nasal Cannula High Flow Nasal Cannula Oxygen Flow Rate 2 1 03/23/23 07:30 03/23/23 07:40 03/23/23 08:54 Temperature Pulse Rate 84 87 83 Respiratory Rate 18 18 Blood Pressure Pulse Oximetry Oxygen Delivery Oxygen Flow Rate 03/23/23 08:55 03/23/23 08:00 03/23/23 08:00 Temperature 35.8 C L Pulse Rate 88 92 Respiratory Rate 20 Blood Pressure 135/91 H Pulse Oximetry 97 97 Oxygen Delivery High Flow Nasal Cannula Oxygen Flow Rate 2 Intake/Output Intake/Output: Intake & Output 03/20/23 03/21/23 03/22/23 03/23/23 23:59 23:59 23:59 23:59 Intake Total 3350 1540 2740 840 Output Total 1480 3730 2435 515 Balance 1870 -2190 305 325 Meds/Results Medications: Active Medications Generic Name Dose Route Start Last Admin Trade Name Freq PRN Reason Stop Dose Admin Allopurinol 100 mg 03/22/23 17:00 03/23/23 08:54 Allopurinol 100 Mg Tablet PO 100 mg QAM MARIUSZ Administration Amlodipine Besylate 5 mg 03/22/23 17:00 03/23/23 08:55 Amlodipine Besylate 5 Mg Tablet PO 5 mg QAM MARIUSZ Administration Atorvastatin Calcium 40 mg 03/22/23 21:00 03/22/23 21:29 Atorvastatin 40 Mg Tablet PO 40 mg HS MARIUSZ Administration Carvedilol 25 mg 03/22/23 17:00 03/23/23 08:54 Carvedilol 25 Mg Ta
[2023-03-23 12:10] LABS: Glucose Point of Care 169 mg/dl (65-105)
--- NOTE | 2023-03-23 15:20 | PC.NURSE ---
This patient, Cristi Broussard, was received from [facility] on 03/23/23 at 1520. Patient/family oriented to unit policies and routines
--- NOTE | 2023-03-23 16:38 | PC.NURSE ---
This patient, Cristi Broussard, was transferred to [facility] in [place] on 03/23/23 at 1550. Personal belongings sent with patient. Report given to AIDEN Vogel. Appropriate documentation sent with patient.
[2023-03-23 16:50] LABS: Glucose Point of Care 104 mg/dl (65-105)
[2023-03-23] MEDS: metFORMIN HCL XR 500 MG TAB.SR.24H PO (16:56)
--- NOTE | 2023-03-23 19:54 | PC.NURSE ---
Lela Blanco LPN provided care for this patient on 03/23/23. I have reviewed her assessments and agree with her charting.
[2023-03-23] MEDS: ATORVASTATIN 40 MG TABLET PO (20:25)
[2023-03-23 21:32] LABS: Glucose Point of Care 110 mg/dl (65-105)
[2023-03-24] MEDS: PIPERACILLN/TAZ 3.375GM/NS50ML 3.375 GM/50 ML BAG IVPB ×2 (00:09→06:13)
[2023-03-24] MEDS: VANCOMYCIN 2,000 MG/NS 500 ML 2,000 MG/500 ML BAG 250 MG IVPB (00:10)
[2023-03-24 06:00] VITALS: BP 154/85; PULSE 80; RESP 20; TEMP 36.4; O2SAT 95
[2023-03-24 06:37] LABS: Basophils Absolute Auto 0.1 K/mm3 (0.0-0.1); Basophils Percent Auto 0.5 % (0.2-1.2); Eosinophils Absolute Auto 0.5 K/mm3 (0-0.3); Eosinophils Percent Auto 4.8 % (0-4.4); Hematocrit 42.5 % (42.0-52.0); Hemoglobin 13.7 g/dL (14.0-18.0); Immature Granulocyte Absolute 0.04 K/mm3 (0.00-0.031); Immature Granulocyte Percent A 0.4 % (0-0.5); Immature Platelet Fraction Pct 6.3 % (0.9-11.2); Lymphocytes Percent Auto 9.6 % (18.3-44.2); Mean Corpuscular HGB Conc 32.2 g/dl (32-36); Mean Corpuscular Hemoglobin 31.3 pg (26-34); Mean Platelet Volume 10.9 fl (7.4-10.4); Monocytes Absolute Auto 0.9 K/mm3 (0.1-0.6); Monocytes Percent Auto 8.6 % (2.6-8.5); Neutrophils Percent Auto 76.1 % (45.5-73.1); Red Blood Count 4.38 M/mm3 (4.6-6.20); Red Cell Distribution Width 13.2 % (11.5-14.5); White Blood Count 10.5 K/mm3 (4.5-10.0)
[2023-03-24 06:44] LABS: Anion Gap 7 mmol/L (8-16); Blood Urea Nitrogen 16 mg/dL (9-20); Calcium 8.5 mg/dL (8.4-10.2); Carbon Dioxide 31 mmol/L (22-30); Chloride 102 mmol/L (98-107); Estimated CRCL calculation 69 ml/min; Estimated Glomerular Filt Rate > 60; Glucose 102 mg/dL (65-110); Sodium 140 mmol/L (137-145)
[2023-03-24 07:33] LABS: Platelet Count Result 107 k/mm3 (150-375)
[2023-03-24 07:43] LABS: Glucose Point of Care 94 mg/dl (65-105)
[2023-03-24] MEDS: allopurinoL 100 MG TABLET PO (09:21)
[2023-03-24] MEDS: CENTRAL LINE FLUSH 10 ML IV PUSH (09:21)
[2023-03-24] MEDS: MONTELUKAST SODIUM 10 MG TABLET PO (09:21)
[2023-03-24] MEDS: lisinopriL 20 MG TABLET PO (09:22)
[2023-03-24] MEDS: GLIMEPIRIDE 2 MG TABLET 4 MG PO (09:22)
[2023-03-24 09:23] VITALS: PULSE 84
[2023-03-24] MEDS: SOTALOL HCL 80 MG TABLET PO (09:23)
[2023-03-24 09:24] VITALS: PULSE 84
[2023-03-24] MEDS: FUROSEMIDE 40 MG TABLET PO (09:24)
[2023-03-24] MEDS: amLODIPine BESYLATE 5 MG TABLET PO (09:24)
[2023-03-24] MEDS: carvediloL 25 MG TABLET PO (09:24)
[2023-03-24] MEDS: PANTOPRAZOLE SODIUM IV 40 MG VIAL IV PUSH (09:30)
[2023-03-24] MEDS: POTASSIUM CHLORIDE 20 MEQ ER TABLET 40 MEQ PO (10:48)
--- NOTE | 2023-03-24 10:50 | PM.DS ---
DS: Admitting Diagnosis Discharge Date 03/24/23 Admitting Diagnosis Acute cholecystitis DS: Discharge Diagnosis Discharge Diagnosis (1) Perforated gastric ulcer: Qualifiers: Gastric ulcer chronicity: acute Qualified Code(s): K25.1 - Acute gastric ulcer with perforation Code(s): K25.5 - Chronic or unspecified gastric ulcer with perforation Status: Acute DS: Summary Hospital Course Reason for hospitalization: acute cholecystitis Hospital Course: Presented with Abd pain and initially suspected to be Acute cholecystitis. Underwent laparotomy which revealed perforated gastric ulcer whcih was repaired. Patient has made markedly recovery, tolerating diet and minimal pain control. Discharged on protonix and GI referral for possible EGD and biopsy to rule out H pylori. F/u with PCP in 3-5 days and Gen surgery as instructed Assessment and Plan (1) Perforated abdominal viscus: ?Code(s): R19.8 - Other specified symptoms and signs involving the digestive system and abdomen ?Status:?Inactive ?Assessment and Plan: 03/23/2023 pod 5. And doing well Discontinue fluconazole due to interaction with sotalol Continue vancomycin and Zosyn(2) CHF (congestive heart failure): ?Qualifiers: ?Heart failure type:?unspecified??Heart failure chronicity:?unspecified? Qualified Code(s):?I50.9 - Heart failure, unspecified ?Code(s): I50.9 - Heart failure, unspecified ?Status:?Acute ?Assessment and Plan: Clinically stable(3) Atrial fibrillation: ?Code(s): I48.91 - Unspecified atrial fibrillation ?Status:?Acute ?Assessment and Plan: 03/23/2023 paced rhythm(4) Diabetes mellitus type 2 in obese: ?Code(s): E11.69 - Type 2 diabetes mellitus with other specified complication; E66.9 - Obesity, unspecified ?Status:?Acute ?Assessment and Plan: 03/23/2023 FBS 125(5) Essential hypertension: ?Code(s): I10 - Essential (primary) hypertension ?Status:?Acute ?Assessment and Plan: 03/23/2023 fair control(6) BPH (benign prostatic hyperplasia): ?Code(s): N40.0 - Benign prostatic hyperplasia without lower urinary tract symptoms ?Status:?Acute Time Spent with Patient Time attestation: Total time spent providing and/or coordinating discharge services: DS: Data Data Completed and Pending Labs on day of discharge: Labs from last 24 hours 03/24/23 03/24/23 03/23/23 07:40 06:22 20:22 WBC 10.5 H RBC 4.38 L Hgb 13.7 L Hct 42.5 MCV 97.0 MCH 31.3 MCHC 32.2 RDW 13.2 Plt Count 107 L MPV 10.9 H Immature Gran % (Auto) 0.4 Neut % (Auto) 76.1 H Lymph % (Auto) 9.6 L [place] % (Auto) 8.6 H Eos % (Auto) 4.8 H Baso % (Auto) 0.5 Lymph # (Auto) 1.00 [place] # (Auto) 0.9 H Eos # (Auto) 0.5 H Baso # (Auto) 0.1 Abs Immat Gran (auto) 0.04 H Absolute Neuts (auto) 8.0 H Absolute Nucleated RBC 0.0 Nucleated RBC % 0.0 % Immature Plt Fraction 6.3 Sodium 140 Potassium 3.0 L Chloride 102 Carbon Dioxide 31 H Anion Gap 7 L BUN 16 Creatinine 1.10 Estim Creat Clear Calc 69 Estimated GFR > 60 Glucose 102 POC Capillary Glucose 94 110 H Calcium 8.5 Vancomycin Trough 03/23/23 03/23/23 03/23/23 16:47 11:50 11:28 WBC RBC Hgb Hct MCV MCH MCHC RDW Plt Count MPV Immature Gran % (Auto) Neut % (Auto) Lymph % (Auto) [place] % (Auto) Eos % (Auto) Baso % (Auto) Lymph # (Auto) [place] # (Auto) Eos # (Auto) Baso # (Auto) Abs Immat Gran (auto) Absolute Neuts (auto) Absolute Nucleated RBC Nucleated RBC % % Immature Plt Fraction Sodium Potassium Chloride Carbon Dioxide Anion Gap BUN Creatinine Estim Creat Clear Calc Estimated GFR Glucose POC Capillary Glucose 104 169 H Calcium Vancomycin Trough 16.4 Discharge Plan
--- NOTE | 2023-03-24 11:00 | PM.PNGS ---
Progress Note: A&P Assessment and Plan (1) Perforated gastric ulcer: Code(s): K25.5 - Chronic or unspecified gastric ulcer with perforation Status: Acute Assessment and Plan: doing well, ok to dc home c po analgesia and PPI, ORQUIDEA casey'd, f/u Dr. Pace in 2 wks Subjective Subjective Date/Time Seen: 03/24/23 11:00 Interval history: feels good, baljeet diet and having normal bowel fxn, wants to go home Review of Systems Review of Systems: All systems reviewed & are unremarkable except as noted in HPI and below Exam Const: General: cooperative, comfortable and no acute distress Resp: Auscultation: clear to auscultation bilaterally Cardio: Rate: regular rate Rhythm: regular rhythm GI: Inspection: normal to inspection and incision GI Palp: Yes abdominal tenderness, Yes Soft to palpation, Yes Tenderness to palpation present (GI), No Guarding due to palpation present (GI) and No Rigid due to palpation Objective Data Vital Signs Vital Signs: Vital Signs - 24 hr 03/23/23 12:00 03/23/23 13:15 03/23/23 13:25 Temperature 36.0 C L Pulse Rate 87 75 77 Respiratory Rate 22 H 18 18 Blood Pressure 139/83 Pulse Oximetry 97 Oxygen Delivery Oxygen Flow Rate 03/23/23 16:00 03/23/23 16:56 03/23/23 16:57 Temperature 36.4 C Pulse Rate 83 80 80 Respiratory Rate 20 Blood Pressure 136/83 Pulse Oximetry 93 Oxygen Delivery Oxygen Flow Rate 03/23/23 17:00 03/23/23 15:20 03/23/23 20:52 Temperature Pulse Rate Respiratory Rate Blood Pressure Pulse Oximetry 95 95 95 Oxygen Delivery Room Air Nasal Cannula Room Air Oxygen Flow Rate 1 03/23/23 22:00 03/24/23 06:00 03/24/23 09:23 Temperature 36.2 C L 36.4 C Pulse Rate 82 80 84 Respiratory Rate 18 20 Blood Pressure 147/87 H 154/85 H Pulse Oximetry 96 95 Oxygen Delivery Oxygen Flow Rate 03/24/23 09:24 Temperature Pulse Rate 84 Respiratory Rate Blood Pressure Pulse Oximetry Oxygen Delivery Oxygen Flow Rate Intake/Output Intake/Output: Intake & Output 03/21/23 03/22/23 03/23/23 03/24/23 23:59 23:59 23:59 23:59 Intake Total 1540 2740 2350 790 Output Total 7710 8718 4894 200 Balance -2190 305 -915 590 Meds/Results Medications: Active Medications Generic Name Dose Route Start Last Admin Trade Name Freq PRN Reason Stop Dose Admin Allopurinol 100 mg 03/22/23 17:00 03/24/23 09:21 Allopurinol 100 Mg Tablet PO 100 mg QAM MARIUSZ Administration Amlodipine Besylate 5 mg 03/22/23 17:00 03/24/23 09:24 Amlodipine Besylate 5 Mg Tablet PO 5 mg QAM MARUISZ Administration Atorvastatin Calcium 40 mg 03/22/23 21:00 03/23/23 20:25 Atorvastatin 40 Mg Tablet PO 40 mg HS MARIUSZ Administration Carvedilol 25 mg 03/22/23 17:00 03/24/23 09:24 Carvedilol 25 Mg Tablet PO 25 mg BID MARIUSZ Administration Dextrose 12.5 gm 03/18/23 09:28 03/20/23 19:51 Dextrose 50% 25 Gm/50 Ml Syringe IV PUSH 12.5 gm PRN PRN Administration Hypoglycemia Protocol Furosemide 40 mg 03/23/23 09:00 03/24/23 09:24 Furosemide 40 Mg Tablet PO 40 mg QAM MARIUSZ Administration Glimepiride 4 mg 03/23/23 09:00 03/24/23 09:22 Glimepiride 2 Mg Tablet PO 4 mg DAILY MARIUSZ Administration Glucagon 1 mg 03/18/23 09:28 Glucagon For Inj 1 Mg Vial IM PRN PRN Hypoglycemia Protocol Glucose 15 gm 03/18/23 09:28 Glucose Oral Gel 15 Gm Of Glucse In 37.5 Gm Tube PO PRN PRN Hypoglycemia Protocol Hydromorphone HCl 1 mg 03/18/23 18:43 Hydromorphone Hcl Inj (*Crx) 1 Mg/Ml Syr IV PUSH Q3H PRN Pain Rated 7-10 Piperacillin/Tazobactam/Dextrose 3.375 gm in 50 mls @ 100 mls/hr 03/18/23 07:30 03/24/23 06:13 Zosyn 3.375 Gm/Ns 50 Ml IVPB 100 mls/hr Q6HR MARIUSZ Administration Dextrose 1,000 mls @ 100 mls/hr 03/18/23 09:28 Dextrose 5% 1,000 Ml IVPB PRN PRN Hypoglycemia Protocol Vancomycin HCl 2,000
[2023-03-24 12:00] LABS: Glucose Point of Care 126 mg/dl (65-105)
[2023-03-24] MEDS: NEOMYCIN/POLYMYXIN/BACITRACIN OINTMENT PACKET 2 PACKET (12:50)
--- NOTE | 2023-03-24 16:20 | PC.NURSE ---
All charting completed by Lela Longo LPN. I have reviewed her charting and agree with her findings.
== END 2023-03-24 14:10 | disposition home or self-care (01) | DRG 327 ==
LOC: ANHICU 03-20 08:35 → ANHIMU 03-21 21:08 → ANH3MEDSUR 03-23 15:04
PROVIDERS: Family Medicine; Internal Medicine; Nurse Practitioner Family; Surgery; Admitting Provider Internal Medicine; PCP Internal Medicine; Visit Provider Internal Medicine
PROC: 0DU707Z Supplement Stomach, Pylorus with Autologous Tissue Substitute, Open Approach (ICD-10-PCS; CPT 49000; principal; 2023-03-18 18:00)
DX: K25.1 Acute gastric ulcer with perforation (principal); Z68.41 Body mass index [BMI] 40.0-44.9, adult; E11.9 Type 2 diabetes mellitus without complications; E78.5 Hyperlipidemia, unspecified; E66.01 Morbid (severe) obesity due to excess calories; I48.91 Unspecified atrial fibrillation; I11.0 Hypertensive heart disease with heart failure; I50.9 Heart failure, unspecified; K66.8 Other specified disorders of peritoneum; N40.0 Benign prostatic hyperplasia without lower urinary tract symptoms; R06.89 Other abnormalities of breathing; Z95.0 Presence of cardiac pacemaker; Z79.01 Long term (current) use of anticoagulants; Z79.4 Long term (current) use of insulin; Z79.84 Long term (current) use of oral hypoglycemic drugs
CPT/HCPCS: 36415; 36569; 36600; 71045; 74240; 80048; 80053; 80202; 82375; 82550; 82570; 82805; 82948; 83036; 83050; 83605; 83690; 83735; 84100; 84133; 84300; 85025; 85027; 85055; 85610; 85730; 85999; 86140; 86850; 86900; 86901; 87040; 94002; 94640; 97110; 97116; 97161; 97165; 97530; 97535; A9270; C1751; C9113; J0330; J1100; J1170; J1450; J1650; J1940; J2310; J2405; J2543; J2704; J3010; J3370; J7120; J7168; P9047

== ENCOUNTER 2025-01-01 12:17 | Inpatient (IN) | payer MEDICARE, OTHER, SELFPAY ==
--- NOTE | ~2025-01-01 | CT_ITS ---
Cristi Broussard EXAMINATION: CT abdomen pelvis w con COMPARISON: None HISTORY: h/o ulcer s/p sgy; here w/ n/v/d TECHNIQUE: Axial images were obtained through the abdomen, pelvis post administration of IV contrast. Oral contrast was also administered. Coronal reconstruction images were obtained from the axial views. CT scan performed using dose optimization techniques including the following automated exposure control; adjustment of mA and/or kV; use of iterative reconstruction technique. Automatic exposure control was used to reduce radiation dose. Permanent radiation dose record is archived to PACS. FINDINGS: CT abdomen: LUNG BASES: The lung bases are clear. The visualized portions of the heart and pericardium are unremarkable. LIVER: Moderate hepatic steatosis. Portal vein patent. No intrahepatic biliary duct dilatation. SPLEEN: Unremarkable. KIDNEYS: Right Kidney: Right kidney midpole there is a complex partially calcified lesion 2.5 x 2 cm possibly a calcified complex cyst, outpatient ultrasound recommended. Left Kidney: Left kidney midpole simple cyst 2 x 2 cm. ADRENAL GLANDS: Unremarkable. PANCREAS: Moderate pancreatic atrophy. GALLBLADDER/BILIARY: Unremarkable. No biliary dilatation. STOMACH AND ESOPHAGUS: The stomach appears distended. There is hyperemia of the gastric mucosa. BOWEL/MESENTERY: Moderate to severe diverticulosis, no diverticulitis. Nonspecific fluid-filled loops of large bowel. There are some mildly hyperemic large bowel loops noted, there is no perforation or abscess. Appendix normal. Mesentery normal. No dilated small bowel loops. ADENOPATHY/RETROPERITONEUM: No lymphadenopathy. AORTA/VASCULATURE: Normal caliber aorta. FREE FLUID OR FREE AIR: No free fluid.. CT pelvis: SOLID ORGANS/REPRODUCTIVE: Prostate enlarged correlate with PSA. BLADDER: Circumferential thickening of the bladder wall with perivesical stranding. OSSEOUS STRUCTURES: No acute osseous abnormality.No suspicious lesions. OVERLYING SOFT TISSUES: Postsurgical changes abdominal wall. Small bilateral fat-containing inguinal hernia. IMPRESSION: 1. Colitis probably infectious in nature 2. Mild cystitis 3. Mild gastritis 4. Incidental findings above Reviewed, dictated and finalized at location P.
--- NOTE | ~2025-01-01 | US_ITS ---
EXAMINATION: US renal BI DATE: 01/03/2025 14:48 INDICATION: Acute renal insufficiency TECHNIQUE: Multiple ultrasound grayscale images of the kidneys were obtained. COMPARISON: None. FINDINGS: The right kidney measures 11.9 x 5.1 x 6.3 cm. The left kidney measures 12.4 x 5.4 x 6.9 cm. The kidneys demonstrate normal echogenicity. 2.6 cm anechoic cyst at the upper pole of the left kidney. There is shadowing heterotopic ossification associated focal cortical scarring at the lower pole of the right kidney which can be seen on prior CT studies with appearance suggesting sequela of prior cryoablation. There is no hydronephrosis in either kidney. No stones identified. The bladder is normal. IMPRESSION: 1. 2.6 similar left renal cyst. No hydronephrosis in either kidney. 2. 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 Reviewed, dictated and finalized at location A.
[2025-01-01 12:12] VITALS: BP 137/66; PULSE 80; RESP 17; TEMP 36.5; O2SAT 96
[2025-01-01 12:35] LABS: Hematocrit 52.1 % (42.0-52.0); Hemoglobin 17.4 g/dL (14.0-18.0); Immature Granulocyte Percent A 0.6 % (0-0.5); Lymphocytes Absolute Auto 1.35 K/mm3 (0.9-3.2); Mean Corpuscular HGB Conc 33.4 g/dl (32-36); Mean Corpuscular Hemoglobin 31.4 pg (26-34); Mean Corpuscular Volume 93.9 fl (80-100); Nucleated Red Blood Cells Absolute Auto 0.000 K/mm3 (0.0-0.012); Nucleated Red Blood Cells Perc 0.0 % (0.0-0.2); Platelet Count Result 213 k/mm3 (150-375); Red Blood Count 5.55 M/mm3 (4.6-6.20); White Blood Count 10.0 K/mm3 (4.5-10.0)
[2025-01-01 12:51] LABS: Alanine Aminotransferase 19 U/L (6-50); Albumin Level 3.5 g/dL (3.5-5.1); Alkaline Phosphatase 71 U/L (38-126); Anion Gap 11 mmol/L (4-12); Aspartate Amino Transferase 16 U/L (17-59); Bilirubin,Total 0.6 mg/dL (0.2-1.3); Blood Urea Nitrogen 35 mg/dL (9-20); Calcium 8.7 mg/dL (8.4-10.2); Carbon Dioxide 19 mmol/L (22-30); Chloride 106 mmol/L (98-107); Estimated CRCL calculation 53 ml/min; Estimated Glomerular Filt Rate 52; Glucose 189 mg/dL (65-110); Lipase 32 U/L (23-300); Potassium 4.5 mmol/L (3.4-5.0); Sodium 136 mmol/L (137-145); Total Protein 6.6 g/dL (6.3-8.2)
--- OUTSIDE RECORDS SUMMARY | 2025-01-01 12:57 | XMS_ITS | Data Portability ---
Author Organization [facility] H Address [address] [place] [address] Care Team Providers Care Coding Quality Analyst Name Role Phone ANABELLA RAY Primary Care Provider [phone] [employer] The[employer] Trouper Assessment Encounter Date Assessment Date Assessment LastModified by Organization Details LastModified Time 07/14/2023 07/14/2023 Blood pressure i s well-controlled A1c [id number] 6.3 congratulated him on his 20 pound weight loss with Nutrisystem continue current therapy records from old medical clinic follow-up with me in 3 he thinks he is up-to-date on immunizations and screenings but we will have to have the old records looked at by staff when they come across for those entities and I will see him back in about 3 months. He continues to follow with cardiology regularly. 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 He will make sure that I get a copy he will see me back in 3-4 months old records need to be queried for his immunizations and screenings [email or web address] Not available 03/08/2024 23:13:48 07/12/2024 07/12/2024 Blood work order ed medicines reviewed all diagnosis have been discussed all questions have been answered he will follow up in 4 months [email or web address] Not available 07/25/2024 21:26:34 11/08/2024 11/08/2024 Blood pressure i s well controlled we are trying to accomplish as much as we can with goal-directed medical therapy for his chronic heart failure but has had troubles getting the SGLT2 healthy lifestyle care instructions last blood work reviewed symptomatically he seems to be doing fine see me back in 4 months Not available 11/21/2024 14:57:38 Plan of Treatment Reminders Order Date Submit Date Provider Last Modified By Organization Details Last Modified Time Details Appointments ANY 15 2024 10:00A M Anabella Ray MD Not available Not available Not available Lab HbA1c (hemoglob in A1c), blood 2024 025 [facility], [address], [place], [address], 07/14/2024 07:12:27 lipid panel, serum 2024 025 [facility], [address], [place], [address], 07/14/2024 07:12:25 CBC w/ auto diff 2024 025 [facility], [address], [place], [address], 07/14/2024 07:12:28 CMP, serum or plasma 2024 025 [facility], [address], [place], [address], 07/14/2024 07:12:26 HbA1c (hemoglob in A1c), blood 2023 024 [facility], [address], [place], [address], 11/11/2023 08:30:49 albumin/c reatinine , mass ratio, urine 2023 024 [facility], [address], [address], [place], [address], 11/11/2023 08:30:46 lipid panel, serum 2023 024 [facility], [address], [place], [address], 11/11/2023 08:30:47 CMP, serum or plasma 2023 024 [facility], [address], [place], [address], 11/11/2023 08:30:48 CBC w/ auto diff 2023 024 [facility], [address], [place], [address], 11/11/2023 08:30:50 PSA, total, serum or plasma 2023 024 [facility], [facility], [facility] [address], [place], [address], 07/16/2023 03:36:30 HbA1c (hemoglob in A1c), blood 2023 024 [email or web address] In-Office Order, Internal Use Only DO Not Attach Compendium DO Not Attach Compendium, Do Not Delete/merge, [id number] 07/14/2023 13:16:29 CBC w/ auto diff 2023 024 [facility], [facility], [address], [place], [address], 07/16/2023 03:36:29 CMP, serum or plasma 2023 024 [facility], [address], [address], [place], [address], 07/16/2023 03:36:28 lipid panel, serum 2023 024 [facility], [address], [address], [place], [address], 07/16/2023 03:36:28 Referral podiatris t referral 2024 025 jose de jesus Perez DPM, [address], [place], [address], 08/25/2024 09:58:07 Procedures None recorded. Surgeries None recorded. Imaging None recorded. Medication Orders None recorded. Patient TargetsNo targets recorded. Patient Instructions Encounter Date Encounter Id Patient Instructions Last Modified By Organization Details Last Modified Time 03/08/2024 [id number] A healthy lifestyle: care instructions Not available 03/08/2024 17:52:57 07/12/2024 [id number] A healthy lifestyle: care instructions [email or web address] Not available 07/12/2024 14:06:05 11/08/2024 [id number] A healthy lifestyle: care instructions [email or web address] Not available 11/08/2024 15:55:01 Reason for Referral Generator [employer] Referral for Type 2 diabetes mellitus Referring Physician: Anabella Ray, Internal Medicine, Encounter Date: 07/12/2024 Results Created Date Observation Date Name Description Value Unit Range Abnormal Flag Note LastModifiedBy Organization Detail LastModifiedTime 07/14/1907/14/2023 HbA1c (hemo globi n A1c), blood HbA1c 6.3 Not Available In-Office Order Internal Use Only DO Not Attach Compendium DO Not Attach Compendium, Do Not Delete/merge, [id number] 07/14/2023 12:06:45 07/15/1907/16/2023 LIPID PANEL cholesterol, total 111 mg/dL 100-19 9 Not Available [facility] ([facility]) [address] [facility] [address], [place], [address], 07/16/2023 03:36:28 04/23/20 24 07/16/2023 LIPID PANEL triglyceride s 119 mg/dL 0-149 Not Available [facility] ([facility]) [address] [place], [address], 07/16/2023 03:36:28 07/15/19 24 07/16/2023 LIPID PANEL HDL cholesterol 34 mg/dL >39 below low normal Not Available [facility] ([facility]) [address] [place], [address], 07/16/2023 03:36:28 07/15/19 24 07/16/2023 LIPID PANEL VLDL cholesterol leo 22 mg/dL 5-40 Not Available [facility] ([facility]) [address] [place], [address], 07/16/2023 03:36:28 07/15/19 24 07/16/2023 LIPID PANEL LDL chol calc ([facility]) 55 mg/dL 0-99 Not Available [facility] ([facility]) [address] [place], [address], 07/16/2023 03:36:28 07/15/19 24 07/16/2023 COMP. METAB OLIC PANEL (14) glucose 215 mg/dL 70-99 above high normal Not Available [facility] ([facility]) [address] [place], [address], 07/16/2023 03:36:28 07/15/19 24 07/16/2023 COMP. METAB OLIC PANEL (14) BUN 17 mg/dL 8-27 Not Available [facility] ([facility]) [address] [place], [address], 07/16/2023 03:36:28 07/15/19 24 07/16/2023 COMP. METAB OLIC PANEL (14) creatinine 1.07 mg/dL 0.76-1 .27 Not Available [facility] ([facility]) [address] [place], [address], 07/16/2023 03:36:28 07/15/19 24 07/16/2023 COMP. METAB OLIC PANEL (14) eGFR 72 mL/mi n/1.7 3 >59 Not Available [facility] ([facility]) [address] [facility] [address], [place], [address], 07/16/2023 03:36:28 07/15/19 24 07/16/2023 COMP. METAB OLIC PANEL (14) BUN/creatini ne ratio 16 10-24 Not Available [facility] ([facility]) [address] [facility] [address], [place], [address], 07/16/2023 03:36:28 07/15/19 24 07/16/2023 COMP. METAB OLIC PANEL (14) sodium 139 mmol/ L 134-14 4 Not Available [facility] ([facility]) [address] [facility] [address], [place], [address], 07/16/2023 03:36:28 07/15/19 24 07/16/2023 COMP. METAB OLIC PANEL (14) potassium 5.8 mmol/ L 3.5-5. 2 above high normal Not Available [facility] ([facility]) [address] [facility] [address], [place], [address], 07/16/2023 03:36:28 07/15/19 24 07/16/2023 COMP. METAB OLIC PANEL (14) chloride 101 mmol/ L 96-106 Not Available [facility] ([facility]) [address] [facility] [address], [place], [address], 07/16/2023 03:36:28 07/15/19 24 07/16/2023 COMP. METAB OLIC PANEL (14) carbon dioxide, total 26 mmol/ L 20-29 Not Available [facility] ([facility]) [address] [facility] [address], [place], [address], 07/16/2023 03:36:28 07/15/19 24 07/16/2023 COMP. METAB OLIC PANEL (14) calcium 9.7 mg/dL 8.6-10 .2 Not Available [facility] ([facility]) [address] [facility] [address], [place], [address], 07/16/2023 03:36:28 07/15/19 24 07/16/2023 COMP. METAB OLIC PANEL (14) protein, total 7.0 g/dL 6.0-8. 5 Not Available [facility] ([facility]) [address] [facility] [address], [place], [address], 07/16/2023 03:36:28 07/15/1907/16/2023 COMP. METAB OLIC PANEL (14) albumin 3.9 g/dL 3.8-4. 8 Not Available [facility] ([facility]) [address] [facility] [address], [place], [address], 07/16/2023 03:36:28 07/15/19 24 07/16/2023 COMP. METAB OLIC PANEL (14) globulin, total 3.1 g/dL 1.5-4. 5 Not Available [facility] ([facility]) [address] [facility] [address], [place], [address], 07/16/2023 03:36:28 07/15/19 24 07/16/2023 COMP. METAB OLIC PANEL (14) A/G ratio 1.3 1.2-2. 2 Not Available [facility] ([facility]) [address] [facility] [address], [place], [address], 07/16/2023 03:36:28 07/15/1907/16/2023 COMP. METAB OLIC PANEL (14) bilirubin, total 0.5 mg/dL 0.0-1. 2 Not Available [facility] ([facility]) [address] [facility] [address], [place], [address], 07/16/2023 03:36:28 07/15/19 24 07/16/2023 COMP. METAB OLIC PANEL (14) alkaline phosphatase 99 IU/L 44-121 Not Available [facility] ([facility]) [address] [facility] [address], [place], [address], 07/16/2023 03:36:28 07/15/19 24 07/16/2023 COMP. METAB OLIC PANEL (14) AST (SGOT) 18 IU/L 0-40 Not Available [facility] ([facility]) [address] [facility] [address], [place], [address], 07/16/2023 03:36:28 07/15/19 24 07/16/2023 COMP. METAB OLIC PANEL (14) ALT (SGPT) 19 IU/L 0-44 Not Available [facility] ([facility]) [address] [facility] [address], [place], [address], 07/16/2023 03:36:28 07/15/19 24 07/15/2023 CBC WITH DIFFE RENTI AL/PL ATELE T WBC 5.7 x10e3 /uL 3.4-10 .8 Not Available [facility] ([facility]) [address] [facility] [address], [place], [address], 07/16/2023 03:36:29 07/15/19 24 07/15/2023 CBC WITH DIFFE RENTI AL/PL ATELE T RBC 4.79 x10e6 /uL 4.14-5 .80 Not Available [facility] ([facility]) [address] [facility] [address], [place], [address], 07/16/2023 03:36:29 07/15/19 24 07/15/2023 CBC WITH DIFFE RENTI AL/PL ATELE T hemoglobin 14.7 g/dL 13.0-1 7.7 Not Available [facility] ([facility]) [address] [facility] [address], [place], [address], 07/16/2023 03:36:29 07/15/19 24 07/15/2023 CBC WITH DIFFE RENTI AL/PL ATELE T hematocrit 44.9 % 37.5-5 1.0 Not Available [facility] ([facility]) [address] [facility], [place], [address], 07/16/2023 03:36:29 07/15/19 24 07/15/2023 CBC WITH DIFFE RENTI AL/PL ATELE T MCV 94 fL 79-97 Not Available [facility] ([facility]) [address] [facility] [address], [place], [address], 07/16/2023 03:36:29 07/15/19 24 07/15/2023 CBC WITH DIFFE RENTI AL/PL ATELE T MCH 30.7 pg 26.6-3 3.0 Not Available [facility] ([facility]) [address] [facility] [address], [place], [address], 07/16/2023 03:36:29 07/15/19 24 07/15/2023 CBC WITH DIFFE RENTI AL/PL ATELE T MCHC 32.7 g/dL 31.5-3 5.7 Not Available [facility] ([facility]) [address] [facility], [place], [address], 07/16/2023 03:36:29 07/15/19 24 07/15/2023 CBC WITH DIFFE RENTI AL/PL ATELE T RDW 13.5 % 11.6-1 5.4 Not Available [facility] ([facility]) [address] [facility] [address], [place], [address], 07/16/2023 03:36:29 07/15/19 24 07/15/2023 CBC WITH DIFFE RENTI AL/PL ATELE T platelets 163 x10e3 /uL 150-45 0 Not Available [facility] ([facility]) [address] [facility] [address], [place], [address], 07/16/2023 03:36:29 07/15/19 24 07/15/2023 CBC WITH DIFFE RENTI AL/PL ATELE T neutrophils 56 % notest ab. Not Available [facility] ([facility]) [address] [facility] [address], [place], [address], 07/16/2023 03:36:29 07/15/19 24 07/15/2023 CBC WITH DIFFE RENTI AL/PL ATELE T lymphs 26 % notest ab. Not Available [facility] ([facility]) [address] [facility] [address], [place], [address], 07/16/2023 03:36:29 07/15/19 24 07/15/2023 CBC WITH DIFFE RENTI AL/PL ATELE T monocytes 10 % notest ab. Not Available [facility] ([facility]) [address] [facility] [address], [place], [address], 07/16/2023 03:36:29 07/15/19 24 07/15/2023 CBC WITH DIFFE RENTI AL/PL ATELE T eos 7 % notest ab. Not Available [facility] ([facility]) [address] [facility] [address], [place], [address], 07/16/2023 03:36:29 07/15/19 24 07/15/2023 CBC WITH DIFFE RENTI AL/PL ATELE T basos 1 % notest ab. Not Available [facility] ([facility]) [address] [facility] [address], [place], [address], 07/16/2023 03:36:29 07/15/19 24 07/15/2023 CBC WITH DIFFE RENTI AL/PL ATELE T neutrophils (absolute) 3.2 x10e3 /uL 1.4-7. 0 Not Available [facility] ([facility]) [address] [place], [address], 07/16/2023 03:36:29 07/15/19 24 07/15/2023 CBC WITH DIFFE RENTI AL/PL ATELE T lymphs (absolute) 1.5 x10e3 /uL 0.7-3. 1 Not Available [facility] ([facility]) [address] [place], [address], 07/16/2023 03:36:29 07/15/19 24 07/15/2023 CBC WITH DIFFE RENTI AL/PL ATELE T monocytes(ab solute) 0.6 x10e3 /uL 0.1-0. 9 Not Available [facility] ([facility]) [address] [place], [address], 07/16/2023 03:36:29 07/15/19 24 07/15/2023 CBC WITH DIFFE RENTI AL/PL ATELE T eos (absolute) 0.4 x10e3 /uL 0.0-0. 4 Not Available [facility] ([facility]) [address] [facility] [address], [place], [address], 07/16/2023 03:36:29 07/15/19 24 07/15/2023 CBC WITH DIFFE RENTI AL/PL ATELE T baso (absolute) 0.0 x10e3 /uL 0.0-0. 2 Not Available [facility] ([facility]) [address] [place], [address], 07/16/2023 03:36:29 07/15/19 24 07/15/2023 CBC WITH DIFFE RENTI AL/PL ATELE T immature granulocytes 0 % notest ab. Not Available [facility] ([facility]) [address] [place], [address], 07/16/2023 03:36:29 07/15/19 24 07/15/2023 CBC WITH DIFFE RENTI AL/PL ATELE T immature grans (abs) 0.0 x10e3 /uL 0.0-0. 1 Not Available [facility] ([facility]) [address] [place], [address], 07/16/2023 03:36:29 07/15/19 24 07/16/2023 PROST ATE-S PECIF IC AG prostate specific Ag 2.7 NG/mL 0.0-4. 0 Radha ECLIA metho dolog y. Accor ding to the Ameri can [employer] g[employer] iatio n, Serum PSA shoul d decre ase and remai n at undet ectab le level s after radic al prost atect amarjit. The AUA defin es bioch emica l recur rence as an initi al PSA value 0.2 ng/mL or great er follo wed by a subse quent confi rmato ry PSA value 0.2 ng/mL or great er. Value s obtai ian with diffe rent assay metho ds or kits canno t be used inter conde eably . Resul ts canno t be inter prete d as absol rosebud evide nce of the prese nce or absen ce of magdaleno alexis se. Not Available [facility] ([facility]) [address] [place], [address], 07/16/2023 03:36:30 07/22/1907/23/2023 POTAS SIUM potassium 4.5 mmol/ L 3.5-5. 2 Not Available [facility] ([facility]) [address] [place], [address], 07/23/2023 07:13:53 11/10/19 24 11/11/2023 ALBUM IN/CR EATIN INE RATIO ,URIN E creatinine, urine 73.7 mg/dL notest ab. Not Available [facility] ([facility]) [address] [place], [address], 11/11/2023 08:30:46 11/10/19 24 11/11/2023 ALBUM IN/CR EATIN INE RATIO ,URIN E albumin, urine 59.8 ug/mL notest ab. Not Available [facility] ([facility]) [address] [place], [address], 11/11/2023 08:30:46 11/10/19 24 11/11/2023 ALBUM IN/CR EATIN INE RATIO ,URIN E alb/creat ratio 81 mg/g_ creat 0-29 above high normal Natalie l: 0 - 29 Moder ately incre ased: 30 - 300 Sever riddhi incre ased: >300 Not Available [facility] ([facility]) [address] [place], [address], 11/11/2023 08:30:46 11/10/19 24 11/11/2023 LIPID PANEL cholesterol, total 123 mg/dL 100-19 9 Not Available [facility] ([facility]) [address] [place], [address], 11/11/2023 08:30:47 11/10/19 24 11/11/2023 LIPID PANEL triglyceride s 136 mg/dL 0-149 Not Available [facility] ([facility]) [address] [place], [address], 11/11/2023 08:30:47 11/10/19 24 11/11/2023 LIPID PANEL HDL cholesterol 31 mg/dL >39 below low normal Not Available [facility] ([facility]) [address] [place], [address], 11/11/2023 08:30:47 11/10/19 24 11/11/2023 LIPID PANEL VLDL cholesterol leo 24 mg/dL 5-40 Not Available [facility] ([facility]) [address] [place], [address], 11/11/2023 08:30:47 11/10/19 24 11/11/2023 LIPID PANEL LDL chol calc ([facility]) 68 mg/dL 0-99 Not Available [facility] ([facility]) [address] [place], [address], 11/11/2023 08:30:47 11/10/19 24 11/11/2023 COMP. METAB OLIC PANEL (14) glucose 171 mg/dL 70-99 above high normal Not Available [facility] ([facility]) [address] [place], [address], 11/11/2023 08:30:48 11/10/19 24 11/11/2023 COMP. METAB OLIC PANEL (14) BUN 19 mg/dL 8-27 Not Available [facility] ([facility]) [address], [place], [address], 11/11/2023 08:30:48 11/10/19 24 11/11/2023 COMP. METAB OLIC PANEL (14) creatinine 1.12 mg/dL 0.76-1 .27 Not Available [facility] ([facility]) [address], [place], [address], 11/11/2023 08:30:48 11/10/19 24 11/11/2023 COMP. METAB OLIC PANEL (14) eGFR 68 mL/mi n/1.7 3 >59 Not Available [facility] ([facility]) [address] [facility] [address], [place], [address], 11/11/2023 08:30:48 11/10/19 24 11/11/2023 COMP. METAB OLIC PANEL (14) BUN/creatini ne ratio 17 10-24 Not Available [facility] ([facility]) [address] [facility], [place], [address], 11/11/2023 08:30:48 11/10/19 24 11/11/2023 COMP. METAB OLIC PANEL (14) sodium 138 mmol/ L 134-14 4 Not Available [facility] ([facility]) [address] [facility], [place], [address], 11/11/2023 08:30:48 11/10/19 24 11/11/2023 COMP. METAB OLIC PANEL (14) potassium 5.4 mmol/ L 3.5-5. 2 above high normal Not Available [facility] ([facility]) [address] [facility], [place], [address], 11/11/2023 08:30:48 11/10/19 24 11/11/2023 COMP. METAB OLIC PANEL (14) chloride 101 mmol/ L 96-106 Not Available [facility] ([facility]) [address] [facility] [place], [address], 11/11/2023 08:30:48 11/10/19 24 11/11/2023 COMP. METAB OLIC PANEL (14) carbon dioxide, total 25 mmol/ L 20-29 Not Available [facility] ([facility]) [address] [facility] [place], [address], 11/11/2023 08:30:48 11/10/19 24 11/11/2023 COMP. METAB OLIC PANEL (14) calcium 9.7 mg/dL 8.6-10 .2 Not Available [facility] ([facility]) [address] [facility] [place], [address], 11/11/2023 08:30:48 11/10/19 24 11/11/2023 COMP. METAB OLIC PANEL (14) protein, total 7.1 g/dL 6.0-8. 5 Not Available [facility] ([facility]) [address] [facility] [place], [address], 11/11/2023 08:30:48 11/10/19 24 11/11/2023 COMP. METAB OLIC PANEL (14) albumin 4.1 g/dL 3.8-4. 8 Not Available [facility] ([facility]) [address] [place], [address], 11/11/2023 08:30:48 11/10/19 24 11/11/2023 COMP. METAB OLIC PANEL (14) globulin, total 3.0 g/dL 1.5-4. 5 Not Available [facility] ([facility]) [address] [place], [address], 11/11/2023 08:30:48 11/10/19 24 11/11/2023 COMP. METAB OLIC PANEL (14) bilirubin, total 0.6 mg/dL 0.0-1. 2 Not Available [facility] ([facility]) [address] [place], [address], 11/11/2023 08:30:48 11/10/19 24 11/11/2023 COMP. METAB OLIC PANEL (14) alkaline phosphatase 88 IU/L 44-121 Not Available [facility] ([facility]) [address] [facility], [place], [address], 11/11/2023 08:30:48 11/10/19 24 11/11/2023 COMP. METAB OLIC PANEL (14) AST (SGOT) 19 IU/L 0-40 Not Available [facility] ([facility]) [address] [facility], [place], [address], 11/11/2023 08:30:48 11/10/19 24 11/11/2023 COMP. METAB OLIC PANEL (14) ALT (SGPT) 22 IU/L 0-44 Not Available [facility] ([facility]) [address] [facility], [place], [address], 11/11/2023 08:30:48 11/10/19 24 11/11/2023 HEMOG LOBIN A1C hemoglobin A1C 6.6 % 4.8-5. 6 above high normal Predi abete s: 5.7 - 6.4 Diabe corinne: >6.4 Glyce isai contr ol for adult s with diabe corinne: <7.0 Not Available [facility] ([facility]) [address] [facility], [place], [address], 11/11/2023 08:30:49 11/10/19 24 11/11/2023 CBC WITH DIFFE RENTI AL/PL ATELE T WBC 6.2 x10e3 /uL 3.4-10 .8 Not Available [facility] ([facility]) [address] [place], [address], 11/11/2023 08:30:50 11/10/19 24 11/11/2023 CBC WITH DIFFE RENTI AL/PL ATELE T RBC 4.64 x10e6 /uL 4.14-5 .80 Not Available [facility] ([facility]) [address] [facility], [place], [address], 11/11/2023 08:30:50 11/10/19 24 11/11/2023 CBC WITH DIFFE RENTI AL/PL ATELE T hemoglobin 15.2 g/dL 13.0-1 7.7 Not Available [facility] ([facility]) [address] [facility], [place], [address], 11/11/2023 08:30:50 11/10/19 24 11/11/2023 CBC WITH DIFFE RENTI AL/PL ATELE T hematocrit 44.8 % 37.5-5 1.0 Not Available [facility] ([facility]) [address] [facility], [place], [address], 11/11/2023 08:30:50 11/10/19 24 11/11/2023 CBC WITH DIFFE RENTI AL/PL ATELE T MCV 97 fL 79-97 Not Available [facility] ([facility]) [address] [place], [address], 11/11/2023 08:30:50 11/10/19 24 11/11/2023 CBC WITH DIFFE RENTI AL/PL ATELE T MCH 32.8 pg 26.6-3 3.0 Not Available [facility] ([facility]) [address] [place], [address], 11/11/2023 08:30:50 11/10/19 24 11/11/2023 CBC WITH DIFFE RENTI AL/PL ATELE T MCHC 33.9 g/dL 31.5-3 5.7 Not Available [facility] ([facility]) [address] [place], [address], 11/11/2023 08:30:50 11/10/19 24 11/11/2023 CBC WITH DIFFE RENTI AL/PL ATELE T RDW 12.0 % 11.6-1 5.4 Not Available [facility] ([facility]) [address] [facility], [place], [address], 11/11/2023 08:30:50 11/10/19 24 11/11/2023 CBC WITH DIFFE RENTI AL/PL ATELE T platelets 178 x10e3 /uL 150-45 0 Not Available [facility] ([facility]) [address] [facility], [place], [address], 11/11/2023 08:30:50 11/10/19 24 11/11/2023 CBC WITH DIFFE RENTI AL/PL ATELE T neutrophils 58 % notest ab. Not Available [facility] ([facility]) [address] [facility], [place], [address], 11/11/2023 08:30:50 11/10/19 24 11/11/2023 CBC WITH DIFFE RENTI AL/PL ATELE T lymphs 24 % notest ab. Not Available [facility] ([facility]) [address] [facility], [place], [address], 11/11/2023 08:30:50 11/10/19 24 11/11/2023 CBC WITH DIFFE RENTI AL/PL ATELE T monocytes 12 % notest ab. Not Available [facility] ([facility]) [address] [facility], [place], [address], 11/11/2023 08:30:50 11/10/19 24 11/11/2023 CBC WITH DIFFE RENTI AL/PL ATELE T eos 5 % notest ab. Not Available [facility] ([facility]) [address] [facility], [place], [address], 11/11/2023 08:30:50 11/10/19 24 11/11/2023 CBC WITH DIFFE RENTI AL/PL ATELE T basos 1 % notest ab. Not Available [facility] ([facility]) [address] [facility], [place], [address], 11/11/2023 08:30:50 11/10/19 24 11/11/2023 CBC WITH DIFFE RENTI AL/PL ATELE T neutrophils (absolute) 3.6 x10e3 /uL 1.4-7. 0 Not Available [facility] ([facility]) [address] [facility], [place], [address], 11/11/2023 08:30:50 11/10/19 24 11/11/2023 CBC WITH DIFFE RENTI AL/PL ATELE T lymphs (absolute) 1.5 x10e3 /uL 0.7-3. 1 Not Available [facility] ([facility]) [address] [facility], [place], [address], 11/11/2023 08:30:50 11/10/19 24 11/11/2023 CBC WITH DIFFE RENTI AL/PL ATELE T monocytes(ab solute) 0.7 x10e3 /uL 0.1-0. 9 Not Available [facility] ([facility]) [address] [facility], [place], [address], 11/11/2023 08:30:50 11/10/19 24 11/11/2023 CBC WITH DIFFE RENTI AL/PL ATELE T eos (absolute) 0.3 x10e3 /uL 0.0-0. 4 Not Available [facility] ([facility]) [address] [facility], [place], [address], 11/11/2023 08:30:50 11/10/19 24 11/11/2023 CBC WITH DIFFE RENTI AL/PL ATELE T baso (absolute) 0.0 x10e3 /uL 0.0-0. 2 Not Available [facility] ([facility]) [address] [facility], [place], [address], 11/11/2023 08:30:50 11/10/19 24 11/11/2023 CBC WITH DIFFE RENTI AL/PL ATELE T immature granulocytes 0 % notest ab. Not Available [facility] ([facility]) [address] [place], [address], 11/11/2023 08:30:50 11/10/19 24 11/11/2023 CBC WITH DIFFE RENTI AL/PL ATELE T immature grans (abs) 0.0 x10e3 /uL 0.0-0. 1 Not Available [facility] ([facility]) [address] [place], [address], 11/11/2023 08:30:50 07/14/19 25 07/14/2024 LIPID PANEL cholesterol, total 126 mg/dL 100-19 9 Not Available [facility] ([facility]) [address] [place], [address], 07/14/2024 07:12:25 07/14/19 25 07/14/2024 LIPID PANEL triglyceride s 158 mg/dL 0-149 above high normal Not Available [facility] ([facility]) [address] [place], [address], 07/14/2024 07:12:25 07/14/19 25 07/14/2024 LIPID PANEL HDL cholesterol 34 mg/dL >39 below low normal Not Available [facility] ([facility]) [address] [place], [address], 07/14/2024 07:12:25 07/14/19 25 07/14/2024 LIPID PANEL VLDL cholesterol leo 27 mg/dL 5-40 Not Available [facility] ([facility]) [address] [place], [address], 07/14/2024 07:12:25 07/14/19 25 07/14/2024 LIPID PANEL LDL chol calc ([facility]) 65 mg/dL 0-99 Not Available [facility] ([facility]) [address] [place], [address], 07/14/2024 07:12:25 07/14/19 25 07/14/2024 COMP. METAB OLIC PANEL (14) glucose 206 mg/dL 70-99 above high normal Not Available [facility] ([facility]) [address] [facility] [place], [address], 07/14/2024 07:12:26 07/14/19 25 07/14/2024 COMP. METAB OLIC PANEL (14) BUN 15 mg/dL 8-27 Not Available [facility] ([facility]) [address] [place], [address], 07/14/2024 07:12:26 07/14/19 25 07/14/2024 COMP. METAB OLIC PANEL (14) creatinine 1.10 mg/dL 0.76-1 .27 Not Available [facility] ([facility]) [address] [place], [address], 07/14/2024 07:12:26 07/14/19 25 07/14/2024 COMP. METAB OLIC PANEL (14) eGFR 69 mL/mi n/1.7 3 >59 Not Available [facility] ([facility]) [address] [place], [address], 07/14/2024 07:12:26 07/14/19 25 07/14/2024 COMP. METAB OLIC PANEL (14) BUN/creatini ne ratio 14 10-24 Not Available [facility] ([facility]) [address] [place], [address], 07/14/2024 07:12:26 07/14/19 25 07/14/2024 COMP. METAB OLIC PANEL (14) sodium 137 mmol/ L 134-14 4 Not Available [facility] ([facility]) [address] [place], [address], 07/14/2024 07:12:26 07/14/19 25 07/14/2024 COMP. METAB OLIC PANEL (14) potassium 5.1 mmol/ L 3.5-5. 2 Not Available [facility] ([facility]) [address] [place], [address], 07/14/2024 07:12:26 07/14/19 25 07/14/2024 COMP. METAB OLIC PANEL (14) chloride 99 mmol/ L 96-106 Not Available [facility] ([facility]) [address] [place], [address], 07/14/2024 07:12:26 07/14/19 25 07/14/2024 COMP. METAB OLIC PANEL (14) carbon dioxide, total 24 mmol/ L 20-29 Not Available [facility] ([facility]) [address] [place], [address], 07/14/2024 07:12:26 07/14/19 25 07/14/2024 COMP. METAB OLIC PANEL (14) calcium 9.9 mg/dL 8.6-10 .2 Not Available [facility] ([facility]) [address] [place], [address], 07/14/2024 07:12:26 07/14/19 25 07/14/2024 COMP. METAB OLIC PANEL (14) protein, total 6.8 g/dL 6.0-8. 5 Not Available [facility] ([facility]) [address] [place], [address], 07/14/2024 07:12:26 07/14/19 25 07/14/2024 COMP. METAB OLIC PANEL (14) albumin 4.0 g/dL 3.8-4. 8 Not Available [facility] ([facility]) [address] [place], [address], 07/14/2024 07:12:26 07/14/19 25 07/14/2024 COMP. METAB OLIC PANEL (14) globulin, total 2.8 g/dL 1.5-4. 5 Not Available [facility] ([facility]) [address] [place], [address], 07/14/2024 07:12:26 07/14/19 25 07/14/2024 COMP. METAB OLIC PANEL (14) bilirubin, total 0.5 mg/dL 0.0-1. 2 Not Available [facility] ([facility]) [address] [place], [address], 07/14/2024 07:12:26 07/14/19 25 07/14/2024 COMP. METAB OLIC PANEL (14) alkaline phosphatase 93 IU/L 44-121 Not Available [facility] ([facility]) [address] [facility], [place], [address], 07/14/2024 07:12:26 07/14/19 25 07/14/2024 COMP. METAB OLIC PANEL (14) AST (SGOT) 18 IU/L 0-40 Not Available [facility] ([facility]) [address] [facility], [place], [address], 07/14/2024 07:12:26 07/14/19 25 07/14/2024 COMP. METAB OLIC PANEL (14) ALT (SGPT) 22 IU/L 0-44 Not Available [facility] ([facility]) [address] [place], [address], 07/14/2024 07:12:26 07/14/19 25 07/13/2024 HEMOG LOBIN A1C hemoglobin A1C 7.3 % 4.8-5. 6 above high normal Predi abete s: 5.7 - 6.4 Diabe corinne: >6.4 Glyce isai contr ol for adult s with diabe corinne: <7.0 Not Available [facility] ([facility]) [address] [facility], [place], [address], 07/14/2024 07:12:27 07/14/19 25 07/13/2024 CBC WITH DIFFE RENTI AL/PL ATELE T WBC 5.8 x10e3 /uL 3.4-10 .8 Not Available [facility] ([facility]) [address] [facility], [place], [address], 07/14/2024 07:12:28 07/14/19 25 07/13/2024 CBC WITH DIFFE RENTI AL/PL ATELE T RBC 4.82 x10e6 /uL 4.14-5 .80 Not Available [facility] ([facility]) [address] [facility], [place], [address], 07/14/2024 07:12:28 07/14/19 25 07/13/2024 CBC WITH DIFFE RENTI AL/PL ATELE T hemoglobin 15.4 g/dL 13.0-1 7.7 Not Available [facility] ([facility]) [address] [place], [address], 07/14/2024 07:12:28 07/14/19 25 07/13/2024 CBC WITH DIFFE RENTI AL/PL ATELE T hematocrit 45.8 % 37.5-5 1.0 Not Available [facility] ([facility]) [address] [place], [address], 07/14/2024 07:12:28 07/14/19 25 07/13/2024 CBC WITH DIFFE RENTI AL/PL ATELE T MCV 95 fL 79-97 Not Available [facility] ([facility]) [address] [place], [address], 07/14/2024 07:12:28 07/14/19 25 07/13/2024 CBC WITH DIFFE RENTI AL/PL ATELE T MCH 32.0 pg 26.6-3 3.0 Not Available [facility] ([facility]) [address] [place], [address], 07/14/2024 07:12:28 07/14/19 25 07/13/2024 CBC WITH DIFFE RENTI AL/PL ATELE T MCHC 33.6 g/dL 31.5-3 5.7 Not Available [facility] ([facility]) [address] [facility], [place], [address], 07/14/2024 07:12:28 07/14/19 25 07/13/2024 CBC WITH DIFFE RENTI AL/PL ATELE T RDW 11.9 % 11.6-1 5.4 Not Available [facility] ([facility]) [address] [facility], [place], [address], 07/14/2024 07:12:28 07/14/19 25 07/13/2024 CBC WITH DIFFE RENTI AL/PL ATELE T platelets 179 x10e3 /uL 150-45 0 Not Available [facility] ([facility]) [address] [facility], [place], [address], 07/14/2024 07:12:28 07/14/19 25 07/13/2024 CBC WITH DIFFE RENTI AL/PL ATELE T neutrophils 52 % notest ab. Not Available [facility] ([facility]) [address] [facility], [place], [address], 07/14/2024 07:12:28 07/14/19 25 07/13/2024 CBC WITH DIFFE RENTI AL/PL ATELE T lymphs 29 % notest ab. Not Available [facility] ([facility]) [address] [facility], [place], [address], 07/14/2024 07:12:28 07/14/19 25 07/13/2024 CBC WITH DIFFE RENTI AL/PL ATELE T monocytes 11 % notest ab. Not Available [facility] ([facility]) [address] [facility], [place], [address], 07/14/2024 07:12:28 07/14/19 25 07/13/2024 CBC WITH DIFFE RENTI AL/PL ATELE T eos 7 % notest ab. Not Available [facility] ([facility]) [address] [facility], [place], [address], 07/14/2024 07:12:28 07/14/19 25 07/13/2024 CBC WITH DIFFE RENTI AL/PL ATELE T basos 1 % notest ab. Not Available [facility] ([facility]) [address] [facility], [place], [address], 07/14/2024 07:12:28 07/14/19 25 07/13/2024 CBC WITH DIFFE RENTI AL/PL ATELE T neutrophils (absolute) 3.0 x10e3 /uL 1.4-7. 0 Not Available [facility] ([facility]) [address] [facility], [place], [address], 07/14/2024 07:12:28 07/14/19 25 07/13/2024 CBC WITH DIFFE RENTI AL/PL ATELE T lymphs (absolute) 1.7 x10e3 /uL 0.7-3. 1 Not Available [facility] ([facility]) [address] [facility], [place], [address], 07/14/2024 07:12:28 07/14/19 25 07/13/2024 CBC WITH DIFFE RENTI AL/PL ATELE T monocytes(ab solute) 0.6 x10e3 /uL 0.1-0. 9 Not Available [facility] ([facility]) [address] [facility], [place], [address], 07/14/2024 07:12:28 07/14/19 25 07/13/2024 CBC WITH DIFFE RENTI AL/PL ATELE T eos (absolute) 0.4 x10e3 /uL 0.0-0. 4 Not Available [facility] ([facility]) [address] [facility], [place], [address], 07/14/2024 07:12:28 07/14/19 25 07/13/2024 CBC WITH DIFFE RENTI AL/PL ATELE T baso (absolute) 0.1 x10e3 /uL 0.0-0. 2 Not Available [facility] ([facility]) [address] [facility], [place], [address], 07/14/2024 07:12:28 07/14/19 25 07/13/2024 CBC WITH DIFFE RENTI AL/PL ATELE T immature granulocytes 0 % notest ab. Not Available [facility] ([facility]) [address] [facility], [place], [address], 07/14/2024 07:12:28 07/14/19 25 07/13/2024 CBC WITH DIFFE RENTI AL/PL ATELE T immature grans (abs) 0.0 x10e3 /uL 0.0-0. 1 Not Available [facility] ([facility]) [address] [facility], [place], [address], 07/14/2024 07:12:28 07/21/19 24 07/21/2023 NM, myoca rdial perfu nicole scan No observ ation record ed. [facility] [address], [place], [address], 07/23/2023 23:45:30 Result Notes None recorded. Problems Name Problem SNOMED Code Status Onset Date Resolution Date Notes Provider Name and Address Organization Details Recorded Time Type 2 diabetes mellitus 89496523 Active 2023 Ellen Gates MA null, [place] - [facility] 4 12:20:15 Essential hypertension 26857620 Active 2023 Ellen Gates [place], [place] [facility] 4 12:20:31 Cardiomyopathy 68759553 Active 2023 Anabella Ray MD Attn: Eleonora ruiz,[address] [facility], [place], [address] , [place] - [facility] 4 08:23:32 Hyperlipidemia 02816646 Active 2023 Anabella Ray MD Attn: Eleonora g,[address] [facility], [place], [address], [place] - [facility] 4 08:23:33 Obesity 370007103 Active 2023 Anabella Ray MD Attn: Eleonora ruiz,[address] [facility], [place], [address], [place] [facility] 4 08:23:35 Peripheral venous insufficiency 38413196 Active 2023 Anabella Ray MD Attn: Nabeeltopher ruiz,[address] [facility], [place], [address], [place] [facility] 4 08:23:38 Chronic systolic heart failure 184130232 Active 2023 Anabella Ray MD Attn: Nabeeltopher ruiz,[address] [facility], [place], [address], [place] [facility] 4 08:23:39 Automatic implantable cardiac defibrillator in situ 439704437 Active 2023 Anabella Ray MD Attn: Nabeeltopher ruiz,[address] [facility], [place], [address], [place] [facility] 4 08:23:40 Osteoarthritis 896326984 Active 2023 Anabella Ray MD Attn: Nabeeltopher ruiz,[address] [facility], [place], [address], [place] [facility] 4 08:26:07 Gastroesophage al reflux disease without esophagitis 317824003 Active 2023 Jacey Ansari LPN null, [place] [facility] 4 10:09:28 Atrial fibrillation 00214233 Active 2023 Anabella Ray MD Attn: Nabeeltopher ruiz,[address] [facility], [place], [address], [place] [facility] 4 23:13:28 Problem Notes None recorded. Procedures Surgical History Date Name Laterality Status Provider Name and Address Organization Details Recorded Time 024 stomach ulcer excision completed TATI Melgar [place] - [facility] 07/14/2023 12:06:05 Defibrillator completed TATI Melgar - [facility] 07/14/2023 11:54:34 Gastrointestinal Surgery completed Renetta Mcclain [place] [facility] 07/14/2023 12:05:14 Joint Replacement completed Sean Mcclain [place] [facility] 07/14/2023 12:05:21 Knee Surgery completed Renetta Mcclain TATI [place] - [facility] 07/14/2023 12:05:26 Imaging Results None recorded. Procedure Notes None recorded. Medical Equipment None Reported. Allergies Allergen ID Allergen Name Allergen Category Reaction Reaction Severity Criticality Documentation Date Start Date Code Code System Note Provider Name and Address Organization Details Recorded Time 313641 Iodinated contrast media (substanc e) medicatio n Not available Not available Not available 07/14/2023 01993 2003 SNOMED Renetta Mcclain TATI dennison [facility] - [facility] 4 12:04:40 324239 Diprivan medicatio n other severe Not available 07/12/2024 27170 9 RxNorm NAE [place], [place] - [facility] 5 11:31:31 104735 Product containin g gadoliniu m and/or gadoliniu m compound (product) medicatio n Not available Not available Not available 07/12/2024 51135 3008 SNOMED NAE [place], [place] - [facility] 5 11:31:37 Medications Name Sig Start Date Stop Date Status Note LastModified by Organization Details LastModified Time amoxicilli n 500 mg capsule 11/09 completed Not Available Not Available Not Available furosemide 40 mg tablet TAKE ONE (1) TABLET(S ) EVERY DAY BY ORAL ROUTE. 2024 active Not Available Not Available Not Avai lable atorvastat in 40 mg tablet active Not Available Not Available Not Available carvedilol 25 mg tablet Take 1 tablet by mouth twice daily active Not Available Not Available No t Available doxycyclin e hyclate 100 mg capsule Take 1 capsule twice a day by oral route for 7 days. 12/15 completed Not Available Not Available Not Available tizanidine 4 mg tablet Take 1 tablet twice a day by oral route for 7 days. 07/12 completed Not Available Not Available Not Available sotalol 80 mg tablet 07/12 completed Not Available Not Available Not Available lisinopril 20 mg tablet Take 1 tablet by mouth twice daily active Not Available Not Available No t Available amlodipine 5 mg tablet Take 1 tablet by mouth daily active Not Available Not Available No t Available triamcinol one acetonide 0.1 % topical cream 07/12 completed Not Available Not Available Not Available potassium chloride ER 20 mEq tablet,ext ended release(pa rt/cryst) Take 1 tablet by mouth every evening 11/09 completed Not Available Not Available Not Available famotidine 20 mg tablet 07/12 completed Not Available Not Available Not Available pantoprazo le 40 mg tablet,del ayed release Take 1 tablet(s ) every day by oral route. 2024 active Not Available Not Available Not Avai lable glimepirid e 4 mg tablet TAKE ONE TABLET BY MOUTH DAILY 2024 active Not Available Not Available Not Avai lable prednisone 50 mg tablet 11/09 completed Not Available Not Available Not Available metformin ER 500 mg tablet,ext ended release 24 hr TAKE ONE TABLET BY MOUTH TWICE A DAY 2024 active Not Available Not Available Not Avai lable dofetilide 500 mcg capsule Take 1 tablet by mouth twice daily active Not Available Not Available No t Available BD Ultra-Fine Mini Pen Needle 31 gauge x 3/16 active Pt states he have but not using Not Available Not Available Not Available Eliquis 5 mg tablet Take 1 tablet by mouth twice daily active Not Available Not Available No t Available Vitals Date Recorded Body height Body mass index (BMI) Body weight Heart rate Oxygen saturation Oxygen saturation in Arterial blood by Pulse oximetry Systolic And Diastolic Provider Name and Address Organization Details Last Updated DateTime 5 171.45 cm 42 kg/m2 641061. 12 g 81 /min 96 % 96 % 124/74 mm[Hg] [place] - [facility] 5 11:31:17 Date Recorded Body height Body mass index (BMI) Body weight Heart rate Oxygen saturation Oxygen saturation in Arterial blood by Pulse oximetry Systolic And Diastolic Provider Name and Address Organization Details Last Updated DateTime 4 171.45 cm 42.1 kg/m2 472513. 72 g 79 /min 96 % 96 % 128/82 mm[Hg] TATI Melgar [facility] 4 12:03:01 Date Recorded Body height Body mass index (BMI) Body weight Heart rate Oxygen saturation Oxygen saturation in Arterial blood by Pulse oximetry Systolic And Diastolic Provider Name and Address Organization Details Last Updated DateTime 5 171.45 cm 42 kg/m2 999343. 12 g 80 /min 98 % 98 % 132/74 mm[Hg] Bertha Avalos MA [facility] 5 11:31:33 Date Recorded Body height Body mass index (BMI) Body weight Heart rate Oxygen saturation Oxygen saturation in Arterial blood by Pulse oximetry Systolic And Diastolic Provider Name and Address Organization Details Last Updated DateTime 4 171.45 cm 41.5 kg/m2 636913. 35 g 80 /min 95 % 95 % 118/78 mm[Hg] Viky Escamilla MA [facility] 4 11:23:27 Date Recorded Body height Body mass index (BMI) Body weight Heart rate Oxygen saturation Oxygen saturation in Arterial blood by Pulse oximetry Systolic And Diastolic Provider Name and Address Organization Details Last Updated DateTime 4 171.45 cm 42.5 kg/m2 601910. 7 g 80 /min 96 % 96 % 124/68 mm[Hg] Soo Loja MA [facility] 4 11:55:43 Social History Question Answer Notes LastModified by Organizat ion Details LastModified Time Tobacco Smoking Status Never Smoker TATI Melgar null, [facility] 07/14/2023 11:54:56 Do You Have An Advance Directive? Yes Information not available 11/10/2023 Are You Blind Or Do You Have Difficulty Seeing? No Information not available 11/10/2023 What Is Your Level Of Caffeine Consumption? None Information not available 11/10/2023 In The 14 Days Before Symptom Onset, Have You Had Close Contact With A Laboratory[facility] While That Case Was Ill? No Information not available 03/08/2024 In The 14 Days Before Symptom Onset, Have You Had Close Contact With A Person Who Is Under Investigation For COVID-19 While That Person Was Ill? No Information not available 03/08/2024 Have You Been To An Area Known To Be High Risk For COVID-19? No Information not available 03/08/2024 Are You Deaf Or Do You Have Serious Difficulty Hearing? No Information not available 11/10/2023 What Type Of Diet Are You Following? REGULAR Information not available 11/10/2023 Are There Any Guns Present In Your Home? No Information not available 03/08/2024 What Was The Date Of Your Most Recent Tobacco Screening? 11/08/2024 Non Smoker [email or web address] Information not available 11/08/2024 What Is Your Relationship Status? Information not available 11/10/2023 Do You Use Your Seat Belt Or Car Seat Routinely? Yes Information not available 11/10/2023 Do You Have Smoke And Carbon Monoxide Detectors In Your Home? Yes Information not available 03/08/2024 Do You Use Sunscreen Routinely? Yes Information not available 03/08/2024 Has Tobacco Cessation Counseling Been Provided? No Information not available 11/10/2023 Sex: Male Functional Status Question Answer Note LastModified by Organizat ion Details LastModified Time Do you use any illicit or recreational drugs? No Information not available 11/10/2023 Do you or have you ever used any other forms of tobacco or nicotine? No Information not available 11/10/2023 What is your level of alcohol consumption? None Information not available 11/10/2023 Are you currently employed? No retried Information not available 11/10/2023 Are you able to care for yourself independently? Yes Information not available 11/10/2023 What is your exercise level? None Information not available 11/10/2023 Mental Status Question Answer Note LastModified by Organization D etails LastModified Time Do you feel stressed (tense, restless, nervous, or anxious, or unable to sleep at night)? [id number] Information not available 11/10/2023 Family History Relationship Description Onset Age of this Age Resolved Age Notes LastModified by Organization Details LastModified Time Mother Heart disease [email or web address] Not available 06/23 12:06:17 Brother Kidney disease [email or web address] Not available 06/23 12:06:32 Brother Diabetes mellitus [email or web address] Not available 06/23 12:06:38 Father Kidney disease [email or web address] Not available 06/23 12:06:32 Medical History Condition Response Coronary Artery Disease N Other N High Blood Pressure Y Atrial Fibrillation Y Kidney or Bladder Problems N Thyroid Problems N GI Problems N Depression N COPD N Blood Clots N Have you had a mammogram in the last yea r? N Skin Problems N Anemia N Heart Attack ([place]) N Anxiety Disorder N Diabetes Y Muscle, Joint, or Bone Problems N Seizures/Epilepsy N Have you had a colonoscopy in the last 1 0 years? N Acid Reflux (GERD) N Cancer N Stroke N Asthma Y Allergies N Have you had a PSA blood test in the las t year? N High Cholesterol N Hepatitis N Liver Disease N Headaches N Heart Failure N Immunizations Vaccine Type Date Status Note Provider Nam e and Address Organization Details Recorded Time Influenza, high-dose, quadrivalent, PF 1 completed BLANCHE MelgarA [place], [place] [facility] 07/14/2023 12:17:47 COVID-19, mRNA, LNP-S, PF, 30 mcg/0.3 mL dose 1 completed [place]ATI [place] [facility] 07/14/2023 12:17:47 COVID-19, mRNA, LNP-S, PF, 30 mcg/0.3 mL dose 1 completed Renetta Mcclain RMA [place] [facility] 07/14/2023 12:17:47 COVID-19, mRNA, LNP-S, PF, 30 mcg/0.3 mL dose 1 completed Renetta Mccl[place] R[place] [facility] 07/14/2023 12:17:47 COVID-19, mRNA, LNP-S, PF, 30 mcg/0.3 mL dose, loreto-sucrose 2 completed Renetta Mcclain R[place] [facility] 07/14/2023 12:17:47 COVID-19, mRNA, LNP-S, bivalent, PF, 30 mcg/0.3 mL dose 3 completed Renetta Mcclain, RMA [place] [facility] 07/14/2023 12:17:47 COVID-19, mRNA, LNP-S, PF, loreto-sucrose, 30 mcg/0.3 mL 3 completed Renetta Mcclain RMA null, [place] [facility] 07/14/2023 12:17:47 influenza, unspecified formulation 4 completed Renetta Mcclain [place] [facility] 07/14/2023 12:17:47 influenza, unspecified formulation 8 completed Renetta Mccl[place] [facility] 07/14/2023 12:17:47 Influenza, high-dose, trivalent, PF 7 completed Renetta Mccl[place] R[place] [facility] 07/14/2023 12:17:47 Influenza, split virus, trivalent, preservative 0 completed Renetta Mccl[place] [facility] 07/14/2023 12:17:47 COVID-19, mRNA, LNP-S, PF, loreto-sucrose, 30 mcg/0.3 mL 4 completed Bertha Avalos [place] null, [place] [facility] 07/12/2024 09:43:03 Past Encounters Encounter ID Performer Location Encounter Start Date Encounter Closed Date Diagnosis/Indication Diagnosis SNOMED-CT Code Diagnosis ICD10 Code Diagnosis IMO Codes Diagnosis Note [id number] Anabella Ray MD [facility] [place] [address] [place] [address] 07/14/2023 11:44:29 07/14/2023 12:22:37 Type 2 diabetes mellitus 10903656 E11.9 Essential hypertension 05311734 I10 Screening for malignant neoplasm of prostate 757177976 Z12.5 Cardiomyopathy 01081492 I42.9 Hyperlipidemia 85993291 E78.5 Obesity 894038454 E66.9 Peripheral venous insufficiency 52553052 I87.2 Chronic sy stolic heart failure 915605650 I50.22 Automatic implantable cardiac defibrillator in situ 708541793 Z95.810 History of peptic ulcer 937638283 Z87.11 Osteoarthritis 216117174 M19.90 [id number] Anabella Ray MD [facility] [place] [address] [place] [address] 11/10/2023 11:05:02 11/10/2023 12:34:48 Essential hypertension 57176194 I10 Type 2 jon betes mellitus 54556938 E11.9 Cardiomyopathy 46147350 I42.9 Chronic sy stolic heart failure 022254913 I50.22 Hyperlipidemia 15560321 E78.5 Obesity 533406936 E66.9 Peripheral venous insufficiency 67293172 I87.2 [id number] Anabella Ray MD [facility] [place] [address] [place] [address] 03/08/2024 11:44:45 03/08/2024 13:14:54 Body mass index 30+ - obesity 722468252 Z68.41 Obesity 884471210 E66.9 Cardiomyopathy 31654248 I42.9 Chronic sy stolic heart failure 150925584 I50.22 Essential hypertension 93074225 I10 Gastroesop hageal reflux disease without esophagitis 707274460 K21.9 Hyperlipidemia 63490307 E78.5 Peripheral venous insufficiency 83792804 I87.2 Type 2 jon betes mellitus 20821392 E11.9 Atrial fibrillation 4943 6004 I48.91 [id number] Anabella Ray MD [facility] [place] [address] [place] [address] 07/12/2024 11:02:47 07/12/2024 12:41:42 Body mass index 40+ - severely obese 983620490 Z68.41 812902 Morbid obesity 500425925 E66.01 Essential hypertension 15732723 I10 Type 2 jon betes mellitus 91629492 E11.9 Chronic sy stolic heart failure 698761530 I50.22 Cardiomyopathy 70880491 I42.9 Gastroesop hageal reflux disease without esophagitis 826639360 K21.9 Hyperlipidemia 01515339 E78.5 Peripheral venous insufficiency 44939269 I87.2 [id number] Anabella Ray MD [facility] [place] [address] [place] [address] 11/08/2024 11:06:22 11/08/2024 12:09:20 Body mass index 40+ - severely obese 504477081 Z68.41 214583 Obese class III 55164272 5 E66.813 E66.3 6298904165 Essential hypertension 42663601 I10 Chronic sy stolic heart failure 554267535 I50.22 Cardiomyopathy 76168392 I42.9 Automatic implantable cardiac defibrillator in situ 548763619 Z95.810 Atrial fibrillation 4943 6004 I48.91 Peripheral venous insufficiency 08701319 I87.2 Hyperlipidemia 43878423 E78.5 Health Concerns Section Related Observation LastModified by Organization Detai ls LastModified Time None Recorded Concern Status LastModified by Organization Details LastModified Time None Recorded Advance Directives Directive Y: Payers Insurance Date Sequence Insurance Name Policy Number Policy Harden Covered Member ID Harden Member ID Guarantor Name 11/23/2024 2 [facility] ([facility] [id number] Cristi Broussard [id number] Cristi Broussard 07/28/2024 2 [facility] [id number] Cristi Broussard [id number] Cristi Broussard 11/05/2024 [place] [facility] Cristi Broussard [id number] Cristi Broussard 11/05/2024 1 [facility] - MEDICARE-[facility] (MEDICARE) Cristi Broussard [id number] Cristi Broussard 11/05/2024 [place] Cristi Broussard [id number] Cristi Broussard Notes Date Note Type Note Provider Name and Address Organization Details Recorded Time 07/14/2023 text/html 77-year-old with hypertension hyperlipidemia type 2 diabetes GERD cardiomyopathy defibrillator atrial fibrillation peripheral venous insufficiency morbid obesity comes in for follow-up of medical care hypertension no headache or dizziness cardiomyopathy with chronic systolic heart failure has not had any PND orthopnea no new edema atrial fibrillation he has not had any palpitations diabetes he is lost about 20 pounds on Nutrisystem sugars are running fairly well today's A1c 6.3 hyperlipidemia tries to watch his diet venous insufficiency wears compression stockings is much as he can obesity he is on Nutrisystem history of peptic ulcer disease with bleeding ulcer that had to be oversewn surgically and has been stable ago. Anabella Ray MD Attn: [address] [place], [address], [facility] 07/15/2023 08:26:33 11/10/2023 text/html hypertension no headache or dizziness. Cardiomyopathy no PND nor orthopnea edema is about the same. Diabetes no polyphagia or polydipsia. GERD no nausea no vomiting no heartburn. Stasis dermatitis of the legs with the use of his compression socks and his topical steroid usually does quite well. Atrial fibrillation no dizziness no headache no stroke-like symptoms obesity he is back on NutriSystem and losing a little bit of weight history of bleeding ulcer no melena no dizziness Anabella Ray MD Attn: [address] [facility], [place], [address], [facility] 11/15/2023 14:44:00 03/08/2024 text/html follow up of his medical problems he is still doing NutriSystem some trying to lose a little bit of weight he has not had any decompensated heart failure cardiomyopathy symptoms blood pressure has been running good no chest pain or shortness of breath GERD has been stable. Trying to watch his intake of saturated fat. States that his legs have been improving he does have a little bit of excoriations on them but he has put in the vitamin-E lotion on there and they are doing better no hypoglycemia no polyphagia no polydipsia Anabella Ray MD Attn: [address] [place], [address], [facility] 03/08/2024 23:14:06 07/12/2024 text/html hypertension no headache or dizziness. Cardiomyopathy no PND nor orthopnea edema is about the same. Diabetes no polyphagia or polydipsia. GERD no nausea no vomiting no heartburn. Stasis dermatitis of the legs with the use of his compression socks and his topical steroid usually does quite well. Atrial fibrillation no dizziness no headache no stroke-like symptoms obesity watching his diet Anabella Ray MD Attn: [address] , [place], [address], [facility] 07/25/2024 21:27:00 11/08/2024 text/html 77-year-old with hypertension hyperlipidemia type 2 diabetes GERD cardiomyopathy defibrillator atrial fibrillation peripheral venous insufficiency morbid obesity comes in for follow-up of medical care hypertension no headache or dizziness cardiomyopathy with chronic systolic heart failure has not had any PND orthopnea no new edema atrial fibrillation he has not had any palpitations diabetes he is lost about 20 pounds on Nutrisystem gained a fair amount hyperlipidemia tries to watch his diet venous insufficiency wears compression stockings is much as he can obesity he is on Nutrisystem history of peptic ulcer disease with bleeding ulcer that had to be oversewn surgically and has been stable ago. Anabella Ray MD Attn: [address] , [place], [address], [facility] 11/21/2024 14:57:55
[2025-01-01] MEDS: FAMOTIDINE 20 MG/2 ML VIAL IV PUSH (13:15)
[2025-01-01] MEDS: LACTATED RINGERS 500 ML 999 ML IV CONT (13:35)
[2025-01-01] MEDS: METOCLOPRAMIDE HCL INJ 10 MG/2 ML VIAL IV PUSH (13:36)
[2025-01-01 14:05] LABS: Add Urine Microscopic? YES; Appearance Urine Cloudy (Clear); Glucose Urine UA Negative (Negative); Leukocyte Esterase Ur 2+ LEU/UL (Negative); Need Manual Microscopic Reviewed; Nitrate Urine Positive (Negative); Non Pathogenic Casts >20; Specific Grav Ur 1.023 (1.001-1.035)
[2025-01-01 14:46] LABS: Toxigenic C. Diff NEGATIVE (NEGATIVE)
[2025-01-01 14:49] VITALS: BP 123/66; PULSE 83; RESP 19; O2SAT 95
[2025-01-01] MEDS: cefTRIAXone 1 GM in SODIUM CHLORIDE 0.9% IV 50 ML 100 ML IVPB (14:52)
--- NOTE | 2025-01-01 15:14 | ED.NAVMDI ---
HPI - Nausea/Vomiting/Diarrhea General Chief complaint: Nausea/Vomiting/Diarrhea Stated complaint: n/v/d since friday Time Seen by Provider: 01/01/25 12:40 History of Present Illness HPI Narrative: For last 5 days, patient has had nonstop vomiting, vomiting, diarrhea, unable to keep anything down, he is very concerned he may be becoming dehydrated. No abdominal pain. Related Data Home Medications ?Medication ?Instructions ?Recorded ?Confirmed ?Last Taken ?Type allopurinol 100 mg tablet 100 mg PO QAM 05/29/21 04/08/23 Unknown History amlodipine 5 mg tablet 5 mg PO QAM 05/29/21 04/08/23 Unknown History apixaban 5 mg tablet (Eliquis) 5 mg PO BID 05/29/21 04/08/23 06/09/21 History atorvastatin 40 mg tablet 40 mg PO HS 05/29/21 04/08/23 Unknown History carvedilol 25 mg tablet 25 mg PO BID 05/29/21 04/08/23 06/11/21 21:00 History furosemide 40 mg tablet 40 mg PO QAM 05/29/21 04/08/23 Unknown History glimepiride 4 mg tablet 4 mg PO QACLUNCH 05/29/21 04/08/23 Unknown History insulin degludec 100 unit/mL (3 10 unit subcut QAM 05/29/21 04/08/23 Unknown History mL) subcutaneous pen (Tresiba FlexTouch U-100 insulin) lisinopril 20 mg tablet 20 mg PO BID 05/29/21 04/08/23 Unknown History metformin 500 mg tablet,extended 500 mg PO BID 05/29/21 04/08/23 Unknown History release 24 hr montelukast 10 mg tablet 10 mg PO DAILY 05/29/21 04/08/23 Unknown History sotalol 80 mg tablet 80 mg PO BID 05/29/21 04/08/23 06/11/21 21:00 History Allergies Allergy/AdvReac Type Severity Reaction Status Date / Time gadobenic acid (From Allergy Mild Rash Verified 01/01/25 12:20 contrast - MRI) Review of Systems Review of Systems: All systems reviewed & are unremarkable except as noted in HPI and below PMFSH Past Medical History Medical History (Updated 01/01/25 @ 15:17 by Cathryn Vásquez MD) Diabetes type 2, controlled Pacemaker Hyperlipidemia Hypertension CHF (congestive heart failure) unknown EF, however per patient, at time of ICD placement in 2016 he believes it was 15% Atrial fibrillation Surgical History Surgical History (Updated 04/08/23 @ 13:58 by Minerva Bergman, CCT) History of laparotomy laparotomy and repair of gastric antral ulcer with modified Kvng patch 03/18/23 SAW Social History Social History Smoking status: Never smoker Alcohol intake: never Drinks per week: 7 Substance use: never Do You Feel Safe in your Home?: Yes Lack of Transportation: YES Lack of Food: Never True Current Housing: I Do Not Have Housing Concerned About Future Housing: No Difficulty Paying Gas/Electric Bills: No Difficulty Paying for Meds: No Currently Unemployed: No Education: High School Diploma/GED Difficulty w/ Childcare or Family Care: No Living arrangements: with family Additional living arrangements comments: SON- LYNN Spiritual care concerns: No Exam Narrative: EXAMINATION OF ORGAN SYSTEMS/BODY AREAS: Constitutional: Vital signs per nursing GENERAL:[No acute distress, non-toxic appearing.] HEAD: Normal with no signs of head trauma. EYES: EOMI, conjunctiva normal ENT: Hearing grossly intact LUNGS: Nonlabored breathing. HEART: [Regular rate and rhythm] ABD: [Soft], [nontender to palpation] EXT: Normal range of motion SKIN: [No rashes or lesions.] NEURO: [Alert and oriented x 3. No gross focal sensory or strength deficits.] PSYCH: Normal affect Course Vital Signs Vital signs: Vital Signs Temperature 97.7 F 01/01/25 12:12 Pulse Rate 80 01/01/25 12:12 Respiratory Rate 17 01/01/25 12:12 Blood Pressure 137/66 01/01/25 12:12 Pulse Oximetry 96 01/01/25 12:12 Oxygen Delivery Room Air 01/01/25 12:12 Temperature 97.7 F 01/01/25 12:12 Pulse Rate 83 01/01/25 14:49 Respiratory Rate 19 01/01/25 14:49 Blood Pressure 123/66 01/01/25 14:49 Pulse Oximetry 95 01/01/25 14:49 Oxygen Delivery Room Air 01/01/25 12:12 MDM - Nausea/Vomiting/Diarrhea MDM Narrative Medical decision making narrative: Patient presenting here with nausea, vomiting, diarrhea, no abdominal pain, EMS did provide dose of Zofran and fluids prior to arrival here and initially his nausea was improved but he would like to have another dose of something. Given his age and risk factors, I did obtain full workup, including CT abdomen/pelvis. He does appear to be dehydrated here with elevated BUN and creatinine, additional fluids given, he does have a UTI here and his CT does also show signs of cystitis and colitis. Patient still having diarrhea, given symptomatic management, discussed admission at this time to make sure he stays hydrated and he would like to be admitted. Discussed with hospitalist for admission. Lab Data 01/01/25 12:30 01/01/25 12:30 Labs: Lab Results 01/01/25 01/01/25 01/01/25 Range/Units 12:30 13:42 13:45 WBC 10.0 (4.5-10.0) K/mm3 RBC 5.55 (4.6-6.20) M/mm3 Hgb 17.4 D (14.0-18.0) g/dL Hct 52.1 H (42.0-52.0) % MCV 93.9 (80-100) fl MCH 31.4 (26-34) pg MCHC 33.4 (32-36) g/dl RDW 13.0 (11.5-14.5) % Plt Count 213 D (150-375) k/mm3 MPV 10.2 (7.4-10.4) fl Immature Gran % (Auto) 0.6 H (0-0.5) % Neut % (Auto) 73.8 H (45.5-73.1) % Lymph % (Auto) 13.6 L (18.3-44.2) % [place] % (Auto) 8.9 H (2.6-8.5) % Eos % (Auto) 2.6 (0-4.4) % Baso % (Auto) 0.5 (0.2-1.2) % Lymph # (Auto) 1.35 (0.9-3.2) K/mm3 [place] # (Auto) 0.9 H (0.1-0.6) K/mm3 Eos # (Auto) 0.3 (0-0.3) K/mm3 Baso # (Auto) 0.1 (0.0-0.1) K/mm3 Abs Immat Gran (auto) 0.06 H (0.00-0.031) K/mm3 Absolute Neuts (auto) 7.3 H (1.3-6.7) K/mm3 Absolute Nucleated RBC 0.000 (0.0-0.012) K/mm3 Nucleated RBC % 0.0 (0.0-0.2) % Sodium 136 L (137-145) mmol/L Potassium 4.5 (3.4-5.0) mmol/L Chloride 106 (98-107) mmol/L Carbon Dioxide 19 L (22-30) mmol/L Anion Gap 11 (4-12) mmol/L BUN 35 H D (9-20) mg/dL Creatinine 1.32 H (0.7-1.3) mg/dL Estim Creat Clear Calc 53 ml/min Estimated GFR 52 L (59 - ) Glucose 189 H (65-110) mg/dL Calcium 8.7 (8.4-10.2) mg/dL Total Bilirubin 0.6 (0.2-1.3) mg/dL AST 16 L (17-59) U/L ALT 19 (6-50) U/L Alkaline Phosphatase 71 (38-126) U/L Total Protein 6.6 (6.3-8.2) g/dL Albumin 3.5 (3.5-5.1) g/dL Lipase 32 (23-300) U/L Urine Color Dark yellow (Yellow) Urine Appearance Cloudy H (Clear) Urine pH 5.0 (5.0-9.0) Ur Specific [place] 1.023 (1.001-1.035) Urine Protein 1+ H (Negative) mg/dL Urine Glucose (UA) Negative (Negative) mg/dL Urine Ketones Trace H (Negative) mg/dL Ur Blood (Man) 2+ H (Negative) Urine Nitrate Positive H (Negative) Urine Bilirubin 1+ H (Negative) Urine Urobilinogen 0.2 (<2.0) mg/dL Add Ur Microanalysis Reviewed Leukocyte Esterase Rfl 2+ H (Negative) ERIKA/UL Urine RBC 0-2 (0-2) /hpf Urine WBC >100 H (0-3) /hpf Ur Squamous Epith Cells Occasional (Few) /hpf Urine Bacteria 4+ H /hpf Urine Casts >20 C. difficile (PCR) Negative (NEGATIVE) Discharge Plan Discharge Clinical Impression: Nausea, vomiting, and diarrhea, Colitis, UTI (urinary tract infection), ANATOLY (acute kidney injury) Patient Disposition: Still a Patient Condition: Improved Patient Language: Kiswahili Prescriptions: No Action pantoprazole [Protonix] 40 mg tablet,delayed release (DR/EC) 40 mg PO HS 28 Days Qty: 28 0RF potassium chloride 20 mEq tablet extended release 20 meq PO DAILY Qty: 10 0RF furosemide 40 mg tablet 40 mg PO QAM atorvastatin 40 mg tablet 40 mg PO HS carvedilol 25 mg tablet 25 mg PO BID sotalol 80 mg tablet 80 mg PO BID lisinopril 20 mg tablet 20 mg PO BID amlodipine 5 mg tablet 5 mg PO QAM allopurinol 100 mg tablet 100 mg PO QAM glimepiride 4 mg tablet 4 mg PO QACLUNCH montelukast 10 mg tablet 10 mg PO DAILY metformin 500 mg tablet extended release 24 hr 500 mg PO BID Eliquis 5 mg tablet 5 mg PO BID insulin degludec [Tresiba FlexTouch U-100] 100 unit/mL (3 mL) insulin pen 10 unit SUBCUT QAM Follow-up/Referrals: Cory,MD Lucio [Primary Care Provider]
[2025-01-01] MEDS: LOPERAMIDE HCL 2 MG CAPSULE 4 MG PO (15:27)
--- NOTE | 2025-01-01 15:36 | P.HP_ITS ---
H&P: HPI History of Present Illness Date/Time: 01/01/25 15:36 Chief Complaint: Nausea vomiting diarrhea Narrative: 79-year-old male past medical history of diabetes, pacemaker, hyperlipidemia, hypertension congestive heart failure presents the hospital with profuse nausea vomiting and diarrhea. Patient presented to the hospital disease worried he is dehydrated, he has had nausea vomiting and diarrhea for the last 5 days. He is unable to tolerate oral intake. Patient states that he tried to drink some apple juice and within 30 minutes he was in the bathroom with diarrhea and vomiting. Patient denies other complaints. Denies fevers chills shortness of breath. Hemoglobin 17.4 with baseline being around 13, sodium 136, carbon dioxide 19, BUN 35, creatinine 1.32, GFR 52, patient has no history of CKD, glucose of 198, AST of 16 UA is cloudy with positive for nitrates, 2+ leukocyte esterase over 100 wbc's and 4+ bacteria. C diff is negative. Review of Systems Review of Systems: 12 systems were reviewed and are negative except for as per HPI. SHIN Past Medical History Medical History (Updated 01/01/25 @ 15:47 by Tosin Osorio, TEST EXAMINER) Diabetes type 2, controlled Pacemaker Hyperlipidemia Hypertension CHF (congestive heart failure) unknown EF, however per patient, at time of ICD placement in 2016 he believes it was 15% Atrial fibrillation Surgical History Surgical History (Updated 04/08/23 @ 13:58 by Minerva Bergman, CCT) History of laparotomy laparotomy and repair of gastric antral ulcer with modified Kvng patch SAW Social History Social History Smoking status: Never smoker Alcohol intake: current Drinks per week: 5 Substance use: never Substance use type: does not use Do You Feel Safe in your Home?: Yes Lack of Transportation: No Lack of Food: Never True Current Housing: I Have Housing Concerned About Future Housing: No Difficulty Paying Gas/Electric Bills: No Difficulty Paying for Meds: No Currently Unemployed: No Education: High School Diploma/GED Difficulty w/ Childcare or Family Care: No Living arrangements: with family Additional living arrangements comments: SON- LYNN Spiritual care concerns: No Meds Home Medications and Allergies Home Medications ?Medication ?Instructions ?Recorded ?Confirmed ?Type allopurinol 100 mg tablet 100 mg PO QAM PRN gout 05/2901/01/25 History amlodipine 5 mg tablet 5 mg PO QAM 05/29/21 5 History apixaban 5 mg tablet (Eliquis) 5 mg PO BID 05/29/21 History atorvastatin 40 mg tablet 40 mg PO HS 05/29/21 5 History carvedilol 25 mg tablet 25 mg PO BID 05/29/21 History furosemide 40 mg tablet 40 mg PO QAM 05/29/21 History glimepiride 4 mg tablet 4 mg PO QACLUNCH 05/29/21 History lisinopril 20 mg tablet 20 mg PO BID 05/29/21 History metformin 500 mg tablet,extended 500 mg PO BID 2 01/01/25 History release 24 hr pantoprazole 40 mg tablet,delayed 40 mg PO HS 4 weeks #28 tabs 03/24/23 01/01/25 Rx release (Protonix) dofetilide 500 mcg capsule 500 mcg PO Q12H 01/01/25 History Allergies Allergy/AdvReac Type Severity Reaction Status Date / Time gadobenic acid (From Allergy Mild Rash Verified 01/01/25 12:20 contrast - MRI) Vital Signs Vital Signs - 24 hr 01/01/25 12:12 01/01/25 14:49 Temperature 97.7 F Pulse Rate 80 83 Respiratory Rate 17 19 Blood Pressure 137/66 123/66 Pulse Oximetry 96 95 Oxygen Delivery Room Air Exam Narrative: General: well appearing, appears stated age. HEENT: normocephalic, atraumatic. Mucous membranes moist. EOMI, PERRLA, bilateral sclera anicteric, no conjunctival injection. Neck supple without JVD, lymphadenopathy, or bruit. Respiratory: clear to ascultation bilaterally. No rales/rhonic/wheezes. Cardiovascular: Regular rate and rhythm, normal S1-S2 upon ascultation. No murmurs, rubs, or clicks. PMI is nondisplaced, capillary refill less than 3 second. Abdomen: Soft, round, no pulsatile masses, nondistended and nontender. No rebound, no guarding.. Bowel sounds present to all four quadrants. No high pitch or tinkling sounds, resonant to percussion. Extremities: No cyanosis, clubbing, Pulses are palpable 2/2. Active ROM to all four extremities. 1+ edema Neuro: Alert and orientated x 4. PERRLA. Cranial nerves 2-12 intact without focal deficit. Skin: Warm, dry, and intact, without rash, erythema, or lesion. Psych: pleasant, cooperative, normal speech, normal affect, no hallucinations, no dysarthia H&P: Results Labs Labs: Short CBC 01/01/25 Range/Units 12:30 WBC 10.0 (4.5-10.0) K/mm3 Hgb 17.4 D (14.0-18.0) g/dL Hct 52.1 H (42.0-52.0) % Plt Count 213 D (150-375) k/mm3 BMP 01/01/25 12:30 Sodium 136 L Potassium 4.5 Chloride 106 Carbon Dioxide 19 L BUN 35 H D Creatinine 1.32 H Glucose 189 H Calcium 8.7 Liver Function 01/01/25 Range/Units 12:30 Total Bilirubin 0.6 (0.2-1.3) mg/dL AST 16 L (17-59) U/L ALT 19 (6-50) U/L Alkaline Phosphatase 71 (38-126) U/L Albumin 3.5 (3.5-5.1) g/dL Urine 01/01/25 Range/Units 13:42 Urine Color Dark yellow (Yellow) Urine Appearance Cloudy H (Clear) Urine pH 5.0 (5.0-9.0) Ur Specific [place] 1.023 (1.001-1.035) Urine Protein 1+ H (Negative) mg/dL Urine Glucose (UA) Negative (Negative) mg/dL Assessment and Plan Assessment and plan (1) Gastritis: Code(s): K29.70 - Gastritis, unspecified, without bleeding Status: Acute Assessment and Plan: Carafate Protonix b.i.d. Compazine (2) Colitis: Code(s): K52.9 - Noninfective gastroenteritis and colitis, unspecified Status: Acute Assessment and Plan: CT showing Colitis probably infectious in nature Stool culture pending C diff negative (3) ANATOLY (acute kidney injury): Code(s): N17.9 - Acute kidney failure, unspecified Status: Acute Assessment and Plan: Likely due from acute dehydration BMP morning Holding lisinopril, Lasix and metformin (4) UTI (urinary tract infection): Code(s): N39.0 - Urinary tract infection, site not specified Status: Acute Assessment and Plan: IV Rocephin Culture and sensitivity pending (5) Essential hypertension: Code(s): I10 - Essential (primary) hypertension Status: Acute Assessment and Plan: Hold antihypertensive medications at this time due to dehydration (6) CHF (congestive heart failure): Qualifiers: Heart failure chronicity: unspecified Heart failure type: unspecified Qualified Code(s): I50.9 - Heart failure, unspecified Code(s): I50.9 - Heart failure, unspecified Status: Acute Assessment and Plan: Patient has 1+ edema Holding Lasix Patient is able to drink water (7) Atrial fibrillation: Code(s): I48.91 - Unspecified atrial fibrillation Status: Acute Assessment and Plan: Continue metoprolol (8) Diabetes mellitus type 2 in obese: Code(s): E11.69 - Type 2 diabetes mellitus with other specified complication; E66.9 - Obesity, unspecified Status: Acute Assessment and Plan: Hold home metformin Accu-Gwenks a.c. HS SSI Quality VTE Prophylaxis VTE prophylaxis: mechanical ordered and pharmacologic ordered Hospitalist MIPS Advance Care Plan I have confirmed that the patient's Advanced Care Plan is present, code status is documented, or surrogate decision maker is listed in patient medical record.: Yes Medication Reconciliation I have utilized all available resources to obtain, update and review the patients current medications (includes all prescriptions, OTC, herbals, cannabis, and nutritional supplements).: Yes
[2025-01-01 16:39] VITALS: BP 104/63; PULSE 80; RESP 18; O2SAT 93
--- NOTE | 2025-01-01 16:53 | ADMGEN ---
This patient, Cristi Broussard, was admitted to [facility] Surg Room 325-02. Patient/family oriented to hospital policies and general routines including ID bracelet, bed and alarms, visiting hours, pain management, procedures, bathroom and other care routines, personal items, smoking policy, room service/diet, and visiting hours. Information on how to activate the Rapid Response Team has been discussed. Patient/Family are encouraged to report perceived risks to care and to ask questions if they do not understand what they are told or what they should do.
[2025-01-01 17:13] VITALS: BMI 38.7
[2025-01-01] MEDS: SUCRALFATE SUSP 100 MG/ML 10 ML UDC 1000 MG PO ×2 (17:31→21:41)
[2025-01-01] MEDS: INSULIN ASPART (*BKC) 100 UNITS/ML SUB-Q ×2 (18:34→21:41)
[2025-01-01 20:25] VITALS: BP 100/47; PULSE 80; RESP 20; TEMP 36; O2SAT 97
[2025-01-01 21:39] VITALS: PULSE 80
[2025-01-01] MEDS: APIXABAN 5 MG TABLET PO (21:40)
[2025-01-01] MEDS: ATORVASTATIN 40 MG TABLET PO (21:40)
[2025-01-01] MEDS: PANTOPRAZOLE SODIUM IV 40 MG VIAL IV PUSH (21:40)
[2025-01-01 22:00] VITALS: O2SAT 97
[2025-01-02] VITALS (7 sets, daily range): BP systolic 90–110; BP diastolic 45–60; PULSE 73–82; RESP 14–20; TEMP 35.8–36.5; O2SAT 92–99
[2025-01-02] MEDS: SUCRALFATE SUSP 100 MG/ML 10 ML UDC 1000 MG PO ×4 (05:45→23:07)
[2025-01-02] MEDS: SODIUM CHLORIDE 0.9% IV 500 ML 999 ML IV CONT (08:17)
[2025-01-02] MEDS: APIXABAN 5 MG TABLET PO ×2 (08:22→23:06)
[2025-01-02] MEDS: PANTOPRAZOLE SODIUM IV 40 MG VIAL IV PUSH ×2 (08:24→23:06)
[2025-01-02] MEDS: LOPERAMIDE HCL 2 MG CAPSULE PO ×3 (08:26→23:06)
[2025-01-02] MEDS: cefTRIAXone 1 GM in SODIUM CHLORIDE 0.9% IV 50 ML 100 ML IVPB (08:36)
--- NOTE | 2025-01-02 08:42 | ECG_ITS ---
Test Date: 2025-01-02 09:29:12 Measurements Intervals [place] Rate: 80 P: 256 GA: 202 QRS: 179 QRSD: 179 T: 4 QT: 479 QTc: 554 Interpretive Statements ELECTRONIC ATRIAL PACEMAKER ELECTRONIC VENTRICULAR PACEMAKER NO FURTHER INTERPRETATION IS POSSIBLE ATYPICAL ECG No previous ECG available for comparison Electronically Signed On 01-02-2025 09:40:[address] D.O.
--- NOTE | 2025-01-02 13:41 | P.PNIM_ITS ---
Progress Note: A&P Assessment and Plan (1) Colitis: Code(s): K52.9 - Noninfective gastroenteritis and colitis, unspecified Status: Acute Assessment and Plan: CT showing Colitis probably infectious in nature Stool culture pending C diff negative Patient reports that he may have had undercooked chicken the night before symptoms that started a week ago. The salmonella and shigella are in the lab pending at this time. Patient denies ever having episodes of bloody diarrhea. Patient had episode of severe diarrhea last night, very watery, which likely dropped his blood pressure requiring 500 mL fluid challenge which is so far successful in improving his blood pressure at this time. Blood pressure medications had to be held due to hypotension in the morning. Will add azithromycin 1 g divided in 2 doses to limit nausea risk for empiric treatment of diarrhea (2) Gastritis: Code(s): K29.70 - Gastritis, unspecified, without bleeding Status: Acute Assessment and Plan: Carafate Protonix b.i.d. Compazine (3) ANATOLY (acute kidney injury): Code(s): N17.9 - Acute kidney failure, unspecified Status: Acute Assessment and Plan: Likely due from acute dehydration BMP morning Holding lisinopril, Lasix and metformin (4) UTI (urinary tract infection): Code(s): N39.0 - Urinary tract infection, site not specified Status: Acute Assessment and Plan: IV Rocephin Culture and sensitivity pending (5) Essential hypertension: Code(s): I10 - Essential (primary) hypertension Status: Acute Assessment and Plan: Hold antihypertensive medications at this time due to dehydration and resulting hypotension (6) CHF (congestive heart failure): Qualifiers: Heart failure type: unspecified Heart failure chronicity: unspecified Qualified Code(s): I50.9 - Heart failure, unspecified Code(s): I50.9 - Heart failure, unspecified Status: Acute Assessment and Plan: Patient has 1+ edema Holding Lasix Patient is able to drink water Current rehydrating patient due to dehydration, tolerated 500 cc bolus this morning (7) Atrial fibrillation: Code(s): I48.91 - Unspecified atrial fibrillation Status: Acute Assessment and Plan: Continue metoprolol (8) Diabetes mellitus type 2 in obese: Code(s): E11.69 - Type 2 diabetes mellitus with other specified complication; E66.9 - Obesity, unspecified Status: Acute Assessment and Plan: Hold home metformin Accu-Cheks a.c. HS SSI Subjective Date/time seen: 01/02/25 13:41 Review of Systems Review of Systems: 12 systems were reviewed and are negative except for as per HPI. Exam Narrative: General: well appearing, appears stated age. HEENT: normocephalic, atraumatic. Mucous membranes moist. EOMI, PERRLA, bilateral sclera anicteric, no conjunctival injection. Neck supple without JVD, lymphadenopathy, or bruit. Respiratory: clear to ascultation bilaterally. No rales/rhonic/wheezes. Cardiovascular: Regular rate and rhythm, normal S1-S2 upon ascultation. No murmurs, rubs, or clicks. PMI is nondisplaced, capillary refill less than 3 second. Abdomen: Soft, round, no pulsatile masses, nondistended and nontender. No rebound, no guarding.. Bowel sounds present to all four quadrants. No high pitch or tinkling sounds, resonant to percussion. Extremities: No cyanosis, clubbing, Pulses are palpable 2/2. Active ROM to all four extremities. 1+ edema Neuro: Alert and orientated x 4. PERRLA. Cranial nerves 2-12 intact without focal deficit. Skin: Warm, dry, and intact, without rash, erythema, or lesion. Psych: pleasant, cooperative, normal speech, normal affect, no hallucinations, no dysarthia Objective Data Vital Signs Vital Signs: Vital Signs - 24 hr 01/01/25 14:49 01/01/25 16:39 01/01/25 20:00 Temperature Pulse Rate 83 80 Respiratory Rate 19 18 Blood Pressure 123/66 104/63 Pulse Oximetry 95 93 Oxygen Delivery Room Air 01/01/25 20:25 01/01/25 21:39 01/01/25 22:00 Temperature 96.8 F L Pulse Rate 80 80 Respiratory Rate 20 Blood Pressure 100/47 L Pulse Oximetry 97 97 Oxygen Delivery Room Air 01/02/25 05:15 01/02/25 05:28 01/02/25 07:59 Temperature 96.4 F L Pulse Rate 73 Respiratory Rate 20 Blood Pressure 90/45 L 90/55 L Pulse Oximetry 92 Oxygen Delivery 01/02/25 09:22 01/02/25 11:42 Temperature Pulse Rate 81 Respiratory Rate Blood Pressure 90/50 L 110/60 Pulse Oximetry 97 Oxygen Delivery Intake/Output Intake/Output: Intake & Output 12/30/24 12/31/24 01/01/25 01/02/25 23:59 23:59 23:59 23:59 Intake Total 730 705 Output Total 400 1 Balance 330 704 Meds/Results Medications: Active Medications Generic Name Dose Route Start Last Admin Trade Name Freq PRN Reason Stop Dose Admin Amlodipine Besylate 5 mg 01/02/25 09:00 01/02/25 08:12 Amlodipine Besylate 5 Mg Tablet PO Not Given QAM MARIUSZ Apixaban 5 mg 01/01/25 21:20 01/02/25 08:22 Apixaban 5 Mg Tablet PO 5 mg Q12HR MARIUSZ Administration Atorvastatin Calcium 40 mg 01/01/25 21:20 01/01/25 21:40 Atorvastatin 40 Mg Tablet PO 40 mg HS MARIUSZ Administration Carvedilol 25 mg 01/01/25 21:20 01/02/25 08:12 Carvedilol 25 Mg Tablet PO Not Given Q12HR MARIUSZ Dextrose 12.5 gm 01/01/25 15:56 Dextrose 50% 25 Gm/50 Ml Syringe IV PUSH PRN PRN Hypoglycemia Protocol Glucagon 1 mg 01/01/25 15:56 Glucagon For Inj 1 Mg Vial IM PRN PRN Hypoglycemia Protocol Glucose 15 gm 01/01/25 15:56 Glucose Oral Gel 15 Gm Of Glucse In 37.5 Gm Tube PO PRN PRN Hypoglycemia Protocol Ceftriaxone Sodium 1 gm/ 50 mls @ 100 mls/hr 01/02/25 09:00 01/02/25 09:06 Sodium Chloride IVPB Infused Q24H MARIUSZ Infusion Dextrose 1,000 mls @ 100 mls/hr 01/01/25 15:56 Dextrose 5% 1,000 Ml IVPB PRN PRN Hypoglycemia Protocol Insulin Aspart 2 - 5 units 01/01/25 17:00 01/02/25 11:45 Insulin Aspart (*Bkc) 100 Units/Ml SUB-Q Not Given TIDWM [facility] Protocol Insulin Aspart 1 - 2 units 01/01/25 21:00 01/01/25 21:41 Insulin Aspart (*Bkc) 100 Units/Ml SUB-Q 1 units HS MARIUSZ Administration Protocol Loperamide HCl 2 mg 01/01/25 15:50 01/02/25 08:26 Loperamide Hcl 2 Mg Capsule PO 2 mg Q6HR PRN Administration Diarrhea Miscellaneous Information 1 each 01/02/25 00:01 Dofetilide Is Nonform; Can Pt Use From Home? XX 02/01/25 00:00 [facility]IFY [facility] Non-Formulary Medication 500 mcg 01/01/25 21:45 Dofetilide PO 01/31/25 21:44 Q12H MARIUSZ Pantoprazole Sodium 40 mg 01/01/25 21:00 01/02/25 08:24 Pantoprazole Sodium Iv 40 Mg Vial IV PUSH 40 mg Q12HR MARIUSZ Administration Sucralfate 1,000 mg 01/01/25 16:30 01/02/25 11:39 Sucralfate Susp 100 Mg/Ml 10 Ml Udc PO 1,000 mg ACHS MARIUSZ Administration Trimethobenzamide HCl 200 mg 01/01/25 21:37 Trimethobenzamide Hcl 200 Mg/2 Ml Vial IM Q6H PRN Nausea And Vomiting Radiology Results: ITS Impressions Abdomen/Pelvis CT 01/01/25 14:39 IMPRESSION: 1. Colitis probably infectious in nature 2. Mild cystitis 3. Mild gastritis 4. Incidental findings above Labs Labs: Laboratory Results - last 24 hr 01/01/25 01/01/25 01/01/25 13:42 13:45 18:30 POC Capillary Glucose 287 H Urine Color Dark yellow Urine Appearance Cloudy H Urine pH 5.0 Ur Specific [place] 1.023 Urine Protein 1+ H Urine Glucose (UA) Negative Urine Ketones Trace H Ur Blood (Man) 2+ H Urine Nitrate Positive H Urine Bilirubin 1+ H Urine Urobilinogen 0.2 Add Ur Microanalysis Reviewed Leukocyte Esterase Rfl 2+ H Urine RBC 0-2 Urine WBC >100 H Ur Squamous Epith Cells Occasional Urine Bacteria 4+ H Urine Casts >20 C. difficile (PCR) Negative 01/01/25 01/02/25 01/02/25 20:23 07:29 11:45 POC Capillary Glucose 280 H 161 H 176 H Urine Color Urine Appearance Urine pH Ur Specific [place] Urine Protein Urine Glucose (UA) Urine Ketones Ur Blood (Man) Urine Nitrate Urine Bilirubin Urine Urobilinogen Add Ur Microanalysis Leukocyte Esterase Rfl Urine RBC Urine WBC Ur Squamous Epith Cells Urine Bacteria Urine Casts C. difficile (PCR) Quality VTE Prophylaxis VTE prophylaxis: mechanical ordered and pharmacologic ordered Hospitalist MIPS Advance Care Plan I have confirmed that the patient's Advanced Care Plan is present, code status is documented, or surrogate decision maker is listed in patient medical record.: Yes Medication Reconciliation I have utilized all available resources to obtain, update and review the patients current medications (includes all prescriptions, OTC, herbals, cannabis, and nutritional supplements).: Yes
--- NOTE | 2025-01-02 20:30 | PHAR ---
PT'S HOME MED DOFETILIDE 500 MCG CAPSULES VERIFIED BY PHARMACY
[2025-01-02] MEDS: TRIMETHOBENZAMIDE HCL 200 MG/2 ML VIAL IM (22:34)
[2025-01-02] MEDS: ATORVASTATIN 40 MG TABLET PO (23:06)
[2025-01-02] MEDS: DOFETILIDE 500 MCG 1 EACH PO (23:09)
[2025-01-03 04:15] VITALS: BP 95/50; PULSE 81; RESP 18; TEMP 36.1; O2SAT 97
[2025-01-03] MEDS: SODIUM CHLORIDE 0.9% IV 1,000 ML 500 ML IV CONT (05:24)
[2025-01-03 06:49] LABS: Hematocrit 49.8 % (42.0-52.0); Hemoglobin 16.3 g/dL (14.0-18.0); Immature Granulocyte Percent A 1.7 % (0-0.5); Lymphocytes Absolute Auto 1.70 K/mm3 (0.9-3.2); Mean Corpuscular HGB Conc 32.7 g/dl (32-36); Mean Corpuscular Hemoglobin 31.3 pg (26-34); Mean Corpuscular Volume 95.6 fl (80-100); Nucleated Red Blood Cells Absolute Auto 0.000 K/mm3 (0.0-0.012); Nucleated Red Blood Cells Perc 0.0 % (0.0-0.2); Platelet Count Result 199 k/mm3 (150-375); Red Blood Count 5.21 M/mm3 (4.6-6.20); White Blood Count 10.6 K/mm3 (4.5-10.0)
[2025-01-03 07:38] LABS: Alanine Aminotransferase 12 U/L (6-50); Albumin Level 3.3 g/dL (3.5-5.1); Alkaline Phosphatase 70 U/L (38-126); Anion Gap 19 mmol/L (4-12); Aspartate Amino Transferase 36 U/L (17-59); Bilirubin,Total 0.7 mg/dL (0.2-1.3); Blood Urea Nitrogen 54 mg/dL (9-20); Calcium 8.3 mg/dL (8.4-10.2); Carbon Dioxide 7 mmol/L (22-30); Chloride 104 mmol/L (98-107); Estimated CRCL calculation 15 ml/min; Estimated Glomerular Filt Rate 12; Glucose 177 mg/dL (65-110); Potassium 4.5 mmol/L (3.4-5.0); Sodium 130 mmol/L (137-145); Total Protein 6.7 g/dL (6.3-8.2)
[2025-01-03] MEDS: PANTOPRAZOLE SODIUM IV 40 MG VIAL IV PUSH ×2 (08:09→20:35)
[2025-01-03] MEDS: LOPERAMIDE HCL 2 MG CAPSULE PO ×2 (08:09→20:33)
[2025-01-03] MEDS: SODIUM CHLORIDE 0.9% IV 1,000 ML 100 ML IV CONT (08:09)
[2025-01-03] MEDS: cefTRIAXone 1 GM in SODIUM CHLORIDE 0.9% IV 50 ML 100 ML IVPB (08:28)
[2025-01-03] MEDS: APIXABAN 5 MG TABLET PO ×2 (08:28→20:34)
[2025-01-03] MEDS: SODIUM CHLORIDE 0.9% IV 500 ML IV CONT (10:00)
[2025-01-03 10:10] VITALS: BP 97/48
[2025-01-03 10:44] VITALS: BP 97/48
--- NOTE | 2025-01-03 12:20 | P.CONNP_ITS ---
Assessment and Plan Assessment and plan (1) Acute kidney injury: Code(s): N17.9 - Acute kidney failure, unspecified Status: Acute Assessment and Plan: * as noted by labs on admission (creatinine 1.32mg/dL) * significant worsening noted today (creatinine 4.72mg/dL) * suspect multifactorial etiology * prerenal factors * contrast exposure (CT scan A/P on admission) * concurrent LANI-I and diuretic use prior to admission * relative hypotension * infection (colitis + UTI + gastritis) * underlying element of CKD(?) * check urine studies, CPK, and renal ultrasound * trial of IVFs as tolerated by respiratory status * BP medications with parameters (in an effort to optimize hemodynamics) * follow trend of repeat labs and UOP (2) Colitis: Code(s): K52.9 - Noninfective gastroenteritis and colitis, unspecified Status: Acute Assessment and Plan: * as noted by admission CT scan * C. diff toxin assay negative * stool cultures pending * continues supportive therapy (3) Gastritis: Code(s): K29.70 - Gastritis, unspecified, without bleeding Status: Acute Assessment and Plan: * suspected given admission history * IV antiemetics * on PPI * follow symptoms (4) CHF (congestive heart failure): Qualifiers: Heart failure type: unspecified Heart failure chronicity: unspecified Qualified Code(s): I50.9 - Heart failure, unspecified Code(s): I50.9 - Heart failure, unspecified Status: Acute Assessment and Plan: * reported history * no evidence of exacerbation * diuretics on hold * follow volume status closely with IVFs (5) Essential hypertension: Code(s): I10 - Essential (primary) hypertension Status: Acute Assessment and Plan: * holding BP medications with paramenters * follow trend of hemodynamics (6) Diabetes: Code(s): E11.9 - Type 2 diabetes mellitus without complications Status: Chronic Assessment and Plan: * follow accu-cheks * glycemic control per hospitalist Will continue to follow. L History of Present Illness Reason for Consult Consult date: 02/03/25 Reason for consult: acute renal failure Chief Complaint Chief complaint: Colitis, N/V/D, Dehydration, Cystits History of Present Illness Narrative: The luis alberto is a 79-year-old male with a past medical history as outlined below who presented to [facility] ER with complaints of the nausea vomiting and diarrhea. Patient states that his above symptoms have been present non-stop for the last 5 - 6 days if not longer. He is unable to tolerate any oral intake since these symptoms began. Patient states that he tried to drink some apple juice and within 30 minutes he was in the bathroom with diarrhea and vomiting. Patient denies any other acute complaints with regard to fevers, chills, chest pain, or shortness of breath. As theser symptoms continues to persist despite conservative therapy, he presented to the ER for further assessment. Workup and evaluation emergency room demonstrated the patient be slightly hypotensive but afebrile. Routine testing was significant for a hemoglobin 17.4, sodium 136, carbon dioxide 19, BUN 35, creatinine 1.32, glucose of 198, and a AST of 16. His UA was cloudy with positive for nitrates, 2+ leukocyte esterase over 100 wbc's and 4+ bacteria. C. diff toxin assay was negative but his CT scan of the abdomen was notable for the presence of colitis. He was subsequently started on IV fluids admitted to the hospital for further evaluation therapy. Since his admission, he has had a significant decline in his kidney function as noted by the trend of his labs. In spite of this change, he has had no issues or problems with critical electrolyte abnormalities or symptoms. Renal consultation was requested due to his acute kidney injury/acute renal failure. The only recent labs I have available for review are from about 1.5 years ago demonstrated his creatinine was well within normal limits. That being said, he does have risk factors for kidney disease given his known chronic medical issues and problems. He still appears to be making reasonable urine output and as already mentioned, has no critical electrolytes this time. The presumed etiology of his acute kidney injury is multifactorial with regard to medications, relative hypotension contrast exposure, infection, and volume depletion. Currently, at the time my evaluation, he appears to be in no acute distress. Review of Systems 2 Review of Systems: As per HPI. [facility] Past Medical History Medical History (Updated 01/31/25 @ 02:13 by Vandana Bobby MD) Diabetes type 2, controlled Pacemaker Hyperlipidemia Hypertension CHF (congestive heart failure) unknown EF, however per patient, at time of ICD placement in 2016 he believes it was 15% Atrial fibrillation Surgical History Surgical History (Updated 04/08/23 @ 13:58 by Minerva Bergman, [facility]) History of laparotomy laparotomy and repair of gastric antral ulcer with modified Kvng patch 03/18/23 SAW Social History Social History Smoking status: Never smoker Alcohol intake: current Drinks per week: 5 Substance use: never Substance use type: does not use Do You Feel Safe in your Home?: Yes Lack of Transportation: No Lack of Food: Never True Current Housing: I Have Housing Concerned About Future Housing: No Difficulty Paying Gas/Electric Bills: No Difficulty Paying for Meds: No Currently Unemployed: No Education: High School Diploma/GED Difficulty w/ Childcare or Family Care: No Living arrangements: with family Additional living arrangements comments: SON- LYNN Spiritual care concerns: No Meds Home Medications and Allergies Home Medications ?Medication ?Instructions ?Recorded ?Confirmed ?Type allopurinol 100 mg tablet 100 mg PO QAM PRN gout 05/2901/01/25 History amlodipine 5 mg tablet 5 mg PO QAM 05/29/21 5 History apixaban 5 mg tablet (Eliquis) 5 mg PO BID 05/29/21 History atorvastatin 40 mg tablet 40 mg PO HS 05/29/21 5 History carvedilol 25 mg tablet 25 mg PO BID 05/29/21 History furosemide 40 mg tablet 40 mg PO QAM 05/29/21 History glimepiride 4 mg tablet 4 mg PO QACLUNCH 05/29/21 History lisinopril 20 mg tablet 20 mg PO BID 05/29/21 History metformin 500 mg tablet,extended 500 mg PO BID 2 01/01/25 History release 24 hr pantoprazole 40 mg tablet,delayed 40 mg PO HS 4 weeks #28 tabs 03/24/23 01/01/25 Rx release (Protonix) dofetilide 500 mcg capsule 500 mcg PO Q12H 01/01/25 History cefdinir 300 mg capsule 300 mg PO Q12H 3 days #6 cap s 01/05/25 Rx Allergies Allergy/AdvReac Type Severity Reaction Status Date / Time gadobenic acid (From Allergy Mild Rash Verified 01/01/25 12:20 contrast - MRI) Vital Signs Vital Signs Temp Pulse Resp BP Pulse Ox O2 Del Method 01/03/25 12:00 96.6 F L 80 18 104/54 L 98 01/03/25 10:44 97/48 L 01/03/25 10:10 97/48 L 01/03/25 08:00 Room Air 01/03/25 04:15 97 F L 81 18 95/50 L 97 01/02/25 21:34 97.1 F L 81 16 101/45 L 95 01/02/25 20:00 Room Air Exam 2 Narrative: GENERAL APPEARANCE: elderly male in no acute distress HEENT: normocephalic, atraumatic, normal conjunctiva and sclera, nares patient NECK: no lymphadenopathy, thyromegaly, or JVD MOUTH: normal lips, teeth, and gums CARDIOVASCULAR: RRR, normal S1 and S2, no rub RESPIRATORY: clear to auscultation bilaterally ABDOMEN: soft, nontender, nondistended, positive bowel sounds present EXTREMITIES: no evidence of cyanosis, clubbing, trace edema NEUROLOGICAL: alert and oriented x 3; CN II - XII intact bilaterally; no focal deficits noted Results Lab Results 01/05/25 05:46 01/05/25 05:46 Lab results: Most recent lab results Calcium 8.3 mg/dL (8.4-10.2) L 01/03/25 06:20 Urine Creatinine 308.6 mg/dL 01/03/25 14:52 Urine Creatinine 313.0 mg/dL 01/03/25 14:52
[2025-01-03 14:00] VITALS: BP 104/54; PULSE 80; RESP 18; TEMP 35.9; O2SAT 98
--- NOTE | 2025-01-03 14:14 | P.PNIM_ITS ---
Progress Note: A&P Assessment and Plan (1) Colitis: Code(s): K52.9 - Noninfective gastroenteritis and colitis, unspecified Status: Acute Assessment and Plan: CT showing Colitis probably infectious in nature Stool culture pending C diff negative Patient reports that he may have had undercooked chicken the night before symptoms that started a week ago. The salmonella and shigella are in the lab pending at this time. Patient denies ever having episodes of bloody diarrhea. (2) Gastritis: Code(s): K29.70 - Gastritis, unspecified, without bleeding Status: Acute Assessment and Plan: Carafate Protonix b.i.d. Compazine (3) ANATOLY (acute kidney injury): Code(s): N17.9 - Acute kidney failure, unspecified Status: Acute Assessment and Plan: Likely due from acute dehydration, which has been worsening with continued bouts of emesis and diarrhea for the past several nights Holding lisinopril, Lasix and metformin ANATOLY significantly worsening, creatinine has jumped to 4.72 from 1.32, BUN 54, GFR 12. Baseline was completely normal in 2023. Nephrology has been consulted given severity of increase of creatinine. Continue gentle hydration, 500 cc bolus given this morning. Will assess fluid status and consider running very gentle hydration at this time (4) UTI (urinary tract infection): Code(s): N39.0 - Urinary tract infection, site not specified Status: Acute Assessment and Plan: IV Rocephin Culture and sensitivity pending (5) Essential hypertension: Code(s): I10 - Essential (primary) hypertension Status: Acute Assessment and Plan: Hold antihypertensive medications at this time due to dehydration and resulting hypotension (6) CHF (congestive heart failure): Qualifiers: Heart failure type: unspecified Heart failure chronicity: unspecified Qualified Code(s): I50.9 - Heart failure, unspecified Code(s): I50.9 - Heart failure, unspecified Status: Acute Assessment and Plan: Patient has 1+ edema Holding Lasix Patient is able to drink water Current rehydrating patient due to dehydration, tolerated 500 cc bolus this morning (7) Atrial fibrillation: Code(s): I48.91 - Unspecified atrial fibrillation Status: Acute Assessment and Plan: Continue metoprolol Apixaban-renal dosing at this time due to kidney function (8) Diabetes mellitus type 2 in obese: Code(s): E11.69 - Type 2 diabetes mellitus with other specified complication; E66.9 - Obesity, unspecified Status: Acute Assessment and Plan: Hold home metformin Accu-Cheks a.c. HS SSI Plan 01/02: Patient had episode of severe diarrhea last night, very watery, which likely dropped his blood pressure requiring 500 mL fluid challenge which is so far successful in improving his blood pressure at this time. Blood pressure medications had to be held due to hypotension in the morning. Will add azithromycin 1 g divided in 2 doses to limit nausea risk for empiric treatment of diarrhea-this was exchanged for rifaximin due to patient have a prolonged QTC on EKG. 01/03: Patient reports additional episodes of emesis and diarrhea the night before, he received 1000 cc bolus last night, is getting 500 cc bolus for hypotension this morning. Blood pressure is responding so far. However, repeat lab shows significant worsening of renal function with creatinine deteriorating to 4.72. Still consider cause to be severe dehydration from fluid loss associated with diarrhea and emesis. Nephrology has been consulted. Rifaximin to be continued for 1-2 more days but to be discontinued after that still no response. Subjective Date/time seen: 01/03/25 14:14 Review of Systems Review of Systems: 12 systems were reviewed and are negative except for as per HPI. Exam Narrative: General: ill appearing, appears stated age. Dehydrated. HEENT: normocephalic, atraumatic. EOMI, PERRLA, bilateral sclera anicteric, no conjunctival injection. Neck supple without JVD, lymphadenopathy, or bruit. Respiratory: clear to ascultation bilaterally. No rales/rhonic/wheezes. Cardiovascular: Regular rate and rhythm, normal S1-S2 upon ascultation. No murmurs, rubs, or clicks. PMI is nondisplaced, capillary refill less than 3 second. Abdomen: Soft, round, no pulsatile masses, nondistended and nontender. No rebound, no guarding.. Bowel sounds present to all four quadrants. No high pitch or tinkling sounds, resonant to percussion. Extremities: No cyanosis, clubbing, Pulses are palpable 2/2. Active ROM to all four extremities. 1+ edema Neuro: Alert and orientated x 4. PERRLA. Cranial nerves 2-12 intact without focal deficit. Skin: Warm, dry, and intact, without rash, erythema, or lesion. Psych: pleasant, cooperative, normal speech, normal affect, no hallucinations, no dysarthia Objective Data Vital Signs Vital Signs: Vital Signs - 24 hr 01/02/25 20:00 01/02/25 21:34 01/03/25 04:15 Temperature 97.1 F L 97 F L Pulse Rate 81 81 Respiratory Rate 16 18 Blood Pressure 101/45 L 95/50 L Pulse Oximetry 95 97 Oxygen Delivery Room Air 01/03/25 08:00 01/03/25 10:10 01/03/25 10:44 Temperature Pulse Rate Respiratory Rate Blood Pressure 97/48 L 97/48 L Pulse Oximetry Oxygen Delivery Room Air 01/03/25 14:00 Temperature 96.6 F L Pulse Rate 80 Respiratory Rate 18 Blood Pressure 104/54 L Pulse Oximetry 98 Oxygen Delivery Intake/Output Intake/Output: Intake & Output 12/31/24 01/01/25 01/02/25 01/03/25 23:59 23:59 23:59 23:59 Intake Total 730 1378 300 Output Total 400 201 Balance 330 1177 300 Meds/Results Medications: Active Medications Generic Name Dose Route Start Last Admin Trade Name Freq PRN Reason Stop Dose Admin Amlodipine Besylate 5 mg 01/02/25 09:00 01/03/25 10:19 Amlodipine Besylate 5 Mg Tablet PO Not Given On Hold: 01/03/25 10:21 QAM MARIUSZ Apixaban 5 mg 01/01/25 21:20 01/03/25 08:28 Apixaban 5 Mg Tablet PO 5 mg Q12HR [facility] Administration Atorvastatin Calcium 40 mg 01/01/25 21:20 01/02/25 23:06 Atorvastatin 40 Mg Tablet PO 40 mg HS MARIUSZ Administration Carvedilol 25 mg 01/01/25 21:20 01/03/25 10:19 Carvedilol 25 Mg Tablet PO Not Given On Hold: 01/03/25 10:20 Q12HR MARIUSZ Dextrose 12.5 gm 01/01/25 15:56 Dextrose 50% 25 Gm/50 Ml Syringe IV PUSH PRN PRN Hypoglycemia Protocol Glucagon 1 mg 01/01/25 15:56 Glucagon For Inj 1 Mg Vial IM PRN PRN Hypoglycemia Protocol Glucose 15 gm 01/01/25 15:56 Glucose Oral Gel 15 Gm Of Glucse In 37.5 Gm Tube PO PRN PRN Hypoglycemia Protocol Ceftriaxone Sodium 1 gm/ 50 mls @ 100 mls/hr 01/02/25 09:00 01/03/25 08:28 Sodium Chloride IVPB 100 mls/hr Q24H MARIUSZ Administration Dextrose 1,000 mls @ 100 mls/hr 01/01/25 15:56 Dextrose 5% 1,000 Ml IVPB PRN PRN Hypoglycemia Protocol Sodium Chloride 1,000 mls @ 100 mls/hr 01/03/25 05:05 01/03/25 08:09 Normal Saline Iv IV CONT 100 mls/hr .Q10H MARIUSZ Administration Insulin Aspart 2 - 5 units 01/01/25 17:00 01/03/25 12:05 Insulin Aspart (*Bkc) 100 Units/Ml SUB-Q Not Given TIDWM MARIUSZ Protocol Insulin Aspart 1 - 2 units 01/01/25 21:00 01/02/25 21:15 Insulin Aspart (*Bkc) 100 Units/Ml SUB-Q Not Given HS MARIUSZ Protocol Loperamide HCl 2 mg 01/01/25 15:50 01/03/25 08:09 Loperamide Hcl 2 Mg Capsule PO 2 mg Q6HR PRN Administration Diarrhea Non-Formulary ( 1 each 01/02/25 21:00 01/03/25 10:19 Dofetilide 500 Mcg PO 02/01/25 20:59 Not Given Oral Capsule) Q12HR MARIUSZ On Hold: 01/03/25 10:21 Pantoprazole Sodium 40 mg 01/01/25 21:00 01/03/25 08:09 Pantoprazole Sodium Iv 40 Mg Vial IV PUSH 40 mg Q12HR MARIUSZ Administration Rifaximin 200 mg 01/03/25 09:00 01/03/25 08:28 Rifaximin 200 Mg Tablet PO 200 mg DAILY MARIUSZ Administration Sucralfate 1,000 mg 01/01/25 16:30 01/03/25 12:04 Sucralfate Susp 100 Mg/Ml 10 Ml Udc PO Not Given ACHS MARIUSZ Trimethobenzamide HCl 200 mg 01/01/25 21:37 01/02/25 22:34 Trimethobenzamide Hcl 200 Mg/2 Ml Vial IM 200 mg Q6H PRN Administration Nausea And Vomiting Radiology Results: ITS Impressions Abdomen/Pelvis CT 01/01/25 14:39 IMPRESSION: 1. Colitis probably infectious in nature 2. Mild cystitis 3. Mild gastritis 4. Incidental findings above Labs Labs: Laboratory Results - last 24 hr 01/02/25 01/02/25 01/03/25 16:49 20:19 06:20 WBC 10.6 H RBC 5.21 Hgb 16.3 Hct 49.8 MCV 95.6 MCH 31.3 MCHC 32.7 RDW 13.4 Plt Count 199 MPV 10.6 H Immature Gran % (Auto) 1.7 H Neut % (Auto) 57.1 Lymph % (Auto) 16.0 L [place] % (Auto) 17.5 H Eos % (Auto) 6.9 H Baso % (Auto) 0.8 Lymph # (Auto) 1.70 [place] # (Auto) 1.9 H Eos # (Auto) 0.7 H Baso # (Auto) 0.1 Abs Immat Gran (auto) 0.18 H Absolute Neuts (auto) 6.1 Absolute Nucleated RBC 0.000 Nucleated RBC % 0.0 Sodium 130 L Potassium 4.5 Chloride 104 Carbon Dioxide 7 L Anion Gap 19 H BUN 54 H D Creatinine 4.72 H Estim Creat Clear Calc 15 Estimated GFR 12 L Glucose 177 H POC Capillary Glucose 136 H 151 H Calcium 8.3 L Total Bilirubin 0.7 AST 36 ALT 12 Alkaline Phosphatase 70 Total Protein 6.7 Albumin 3.3 L 01/03/25 01/03/25 07:23 11:23 WBC RBC Hgb Hct MCV MCH MCHC RDW Plt Count MPV Immature Gran % (Auto) Neut % (Auto) Lymph % (Auto) [place] % (Auto) Eos % (Auto) Baso % (Auto) Lymph # (Auto) [place] # (Auto) Eos # (Auto) Baso # (Auto) Abs Immat Gran (auto) Absolute Neuts (auto) Absolute Nucleated RBC Nucleated RBC % Sodium Potassium Chloride Carbon Dioxide Anion Gap BUN Creatinine Estim Creat Clear Calc Estimated GFR Glucose POC Capillary Glucose 171 H 91 Calcium Total Bilirubin AST ALT Alkaline Phosphatase Total Protein Albumin Quality VTE Prophylaxis VTE prophylaxis: mechanical ordered and pharmacologic ordered Hospitalist MIPS Advance Care Plan I have confirmed that the patient's Advanced Care Plan is present, code status is documented, or surrogate decision maker is listed in patient medical record.: Yes Medication Reconciliation I have utilized all available resources to obtain, update and review the patients current medications (includes all prescriptions, OTC, herbals, cannabis, and nutritional supplements).: Yes
[2025-01-03 15:16] LABS: Total Protein Urine Random 50 mg/dL; Ur Ttl Prot Creatinine Ratio 0.16 mg/mg (0-0.20)
[2025-01-03 15:31] LABS: Urea Random Urine 413 MG/DL
[2025-01-03 17:04] LABS: Urine Eos QC 2nd Tech Confirmed
[2025-01-03 18:23] VITALS: BP 103/59
[2025-01-03] MEDS: SIMETHICONE 80 MG TAB.CHEW PO (20:34)
[2025-01-03] MEDS: ATORVASTATIN 40 MG TABLET PO (20:34)
[2025-01-03 22:00] VITALS: BP 110/60; PULSE 80; RESP 18; TEMP 37.1; O2SAT 97
[2025-01-04 05:02] VITALS: BP 115/57; PULSE 81; RESP 20; TEMP 36.4; O2SAT 97
[2025-01-04 06:36] LABS: Hematocrit 45.0 % (42.0-52.0); Hemoglobin 15.2 g/dL (14.0-18.0); Immature Granulocyte Percent A 2.5 % (0-0.5); Lymphocytes Absolute Auto 2.13 K/mm3 (0.9-3.2); Mean Corpuscular HGB Conc 33.8 g/dl (32-36); Mean Corpuscular Hemoglobin 31.4 pg (26-34); Mean Corpuscular Volume 93.0 fl (80-100); Nucleated Red Blood Cells Absolute Auto 0.000 K/mm3 (0.0-0.012); Nucleated Red Blood Cells Perc 0.0 % (0.0-0.2); Platelet Count Result 169 k/mm3 (150-375); Red Blood Count 4.84 M/mm3 (4.6-6.20); White Blood Count 11.7 K/mm3 (4.5-10.0)
[2025-01-04 07:00] LABS: Alanine Aminotransferase 14 U/L (6-50); Albumin Level 3.1 g/dL (3.5-5.1); Alkaline Phosphatase 67 U/L (38-126); Anion Gap 11 mmol/L (4-12); Aspartate Amino Transferase 23 U/L (17-59); Bilirubin,Total 0.5 mg/dL (0.2-1.3); Blood Urea Nitrogen 51 mg/dL (9-20); Calcium 8.1 mg/dL (8.4-10.2); Carbon Dioxide 16 mmol/L (22-30); Chloride 107 mmol/L (98-107); Creatine Kinase 49 U/L (55-170); Estimated CRCL calculation 26 ml/min; Estimated Glomerular Filt Rate 23; Glucose 94 mg/dL (65-110); Potassium 3.6 mmol/L (3.4-5.0); Sodium 134 mmol/L (137-145); Total Protein 5.8 g/dL (6.3-8.2)
[2025-01-04] MEDS: SIMETHICONE 80 MG TAB.CHEW PO ×4 (09:40→20:46)
[2025-01-04] MEDS: APIXABAN 5 MG TABLET PO ×2 (09:40→20:46)
[2025-01-04] MEDS: PANTOPRAZOLE SODIUM IV 40 MG VIAL IV PUSH ×2 (09:40→20:47)
[2025-01-04] MEDS: cefTRIAXone 1 GM in SODIUM CHLORIDE 0.9% IV 50 ML 100 ML IVPB (09:40)
[2025-01-04 10:46] LABS: Hepatitis B Surface Antigen Negative (Negative)
[2025-01-04 11:03] LABS: Hepatitis B Surface Anti Res Negative
--- NOTE | 2025-01-04 12:00 | P.PNNP_ITS ---
Progress Note: A&P Assessment and Plan (1) Acute kidney injury: Code(s): N17.9 - Acute kidney failure, unspecified Status: Acute Assessment and Plan: * as noted by labs on admission (creatinine 1.32mg/dL) * significant worsening noted today (creatinine 4.72mg/dL) * suspect multifactorial etiology * prerenal factors * contrast exposure (CT scan A/P on admission) * concurrent LANI-I and diuretic use prior to admission * relative hypotension * infection (colitis + UTI + gastritis) * underlying element of CKD(?) * evaluation to date noted: * renal u/s without obstruction * urine electrolytes prerenal * urine eosinophils negative * no significant proteinuria * CPK low * trial of IVFs as tolerated by respiratory status * BP medications with parameters (in an effort to optimize hemodynamics) * follow trend of repeat labs and UOP (2) Colitis: Code(s): K52.9 - Noninfective gastroenteritis and colitis, unspecified Status: Acute Assessment and Plan: * as noted by admission CT scan * C. diff toxin assay negative * stool cultures pending * continues supportive therapy (3) Gastritis: Code(s): K29.70 - Gastritis, unspecified, without bleeding Status: Acute Assessment and Plan: * suspected given admission history * IV antiemetics * on PPI * follow symptoms (4) CHF (congestive heart failure): Qualifiers: Heart failure chronicity: unspecified Heart failure type: unspecified Qualified Code(s): I50.9 - Heart failure, unspecified Code(s): I50.9 - Heart failure, unspecified Status: Acute Assessment and Plan: * reported history * no evidence of exacerbation * diuretics on hold * follow volume status closely with IVFs (5) Essential hypertension: Code(s): I10 - Essential (primary) hypertension Status: Acute Assessment and Plan: * holding BP medications with paramenters * follow trend of hemodynamics (6) Diabetes: Code(s): E11.9 - Type 2 diabetes mellitus without complications Status: Chronic Assessment and Plan: * follow accu-cheks * glycemic control per hospitalist Will continue to follow. L Subjective Date/time seen: 01/04/25 12:00 Interval history: Follow-up for acute kidney injury/acute renal failure. Renal function/creatinine appears to be doing better by trend of labs with noted increase in urine output (per patient); better hemodynamics noted at the time of my visit; GI symptoms appears to be doing better as well; no apparent distress noted when seen. Exam 2 Narrative: General: elderly but WD/WN male in NAD Heart: normal S1 and S2; no rub Lungs: clear to auscultation Abdomen: soft, nontender, nondistended, positive bowel sounds Extremities: no cyanosis or clubbing; no edema Skin: warm and dry Objective Data Vital Signs Vital Signs: Vital Signs Temp Pulse Resp BP Pulse Ox O2 Del Method 01/04/25 11:55 97.1 F L 80 18 123/56 L 99 01/04/25 08:00 Room Air 01/04/25 05:02 97.6 F 81 20 115/57 L 97 01/03/25 22:00 98.8 F 80 18 110/60 97 01/03/25 20:00 Room Air Intake/Output Intake/Output: Intake & Output 01/01/25 01/02/25 01/03/25 01/04/25 23:59 23:59 23:59 23:59 Intake Total 730 1378 2136.0 1084 Output Total 400 201 150 Balance 330 1177 1986.0 1084 Meds/Results Medications: Active Medications Generic Name Dose Route Start Last Admin Trade Name Freq PRN Reason Stop Dose Admin Amlodipine Besylate 5 mg 01/02/25 09:00 01/03/25 10:19 Amlodipine Besylate 5 Mg Tablet PO Not Given On Hold: 01/03/25 10:21 QAM MARIUSZ Apixaban 5 mg 01/03/25 21:00 01/04/25 09:40 Apixaban 5 Mg Tablet PO 5 mg Q12HR MARIUSZ Administration Atorvastatin Calcium 40 mg 01/01/25 21:20 01/03/25 20:34 Atorvastatin 40 Mg Tablet PO 40 mg HS MARIUSZ Administration Carvedilol 25 mg 01/01/25 21:20 01/03/25 10:19 Carvedilol 25 Mg Tablet PO Not Given On Hold: 01/03/25 10:20 Q12HR MARIUSZ Dextrose 12.5 gm 01/01/25 15:56 Dextrose 50% 25 Gm/50 Ml Syringe IV PUSH PRN PRN Hypoglycemia Protocol Glucagon 1 mg 01/01/25 15:56 Glucagon For Inj 1 Mg Vial IM PRN PRN Hypoglycemia Protocol Glucose 15 gm 01/01/25 15:56 Glucose Oral Gel 15 Gm Of Glucse In 37.5 Gm Tube PO PRN PRN Hypoglycemia Protocol Dextrose 1,000 mls @ 100 mls/hr 01/01/25 15:56 Dextrose 5% 1,000 Ml IVPB PRN PRN Hypoglycemia Protocol Sodium Chloride 1,000 mls @ 50 mls/hr 01/03/25 05:05 01/04/25 12:24 Normal Saline Iv IV CONT 50 mls/hr .Q20H MARIUSZ Administration Insulin Aspart 2 - 5 units 01/01/25 17:00 01/04/25 16:57 Insulin Aspart (*Bkc) 100 Units/Ml SUB-Q Not Given TIDWM MARIUSZ Protocol Insulin Aspart 1 - 2 units 01/01/25 21:00 01/03/25 21:13 Insulin Aspart (*Bkc) 100 Units/Ml SUB-Q Not Given HS MARIUSZ Protocol Loperamide HCl 2 mg 01/01/25 15:50 01/03/25 20:33 Loperamide Hcl 2 Mg Capsule PO 2 mg Q6HR PRN Administration Diarrhea Non-Formulary ( 1 each 01/02/25 21:00 01/03/25 10:19 Dofetilide 500 Mcg PO 02/01/25 20:59 Not Given Oral Capsule) Q12HR MARIUSZ On Hold: 01/03/25 10:21 Pantoprazole Sodium 40 mg 01/01/25 21:00 01/04/25 09:40 Pantoprazole Sodium Iv 40 Mg Vial IV PUSH 40 mg Q12HR MARIUSZ Administration Rifaximin 200 mg 01/03/25 09:00 01/04/25 09:40 Rifaximin 200 Mg Tablet PO 200 mg DAILY MARIUSZ Administration Simethicone 80 mg 01/03/25 21:00 01/04/25 16:58 Simethicone 80 Mg Tab.Chew PO 80 mg QID MARIUSZ Administration Sucralfate 1,000 mg 01/01/25 16:30 01/04/25 16:57 Sucralfate Susp 100 Mg/Ml 10 Ml Udc PO Not Given ACHS MARIUSZ Trimethobenzamide HCl 200 mg 01/01/25 21:37 01/02/25 22:34 Trimethobenzamide Hcl 200 Mg/2 Ml Vial IM 200 mg Q6H PRN Administration Nausea And Vomiting Radiology Results: ITS Impressions Abdomen/Pelvis CT 01/01/25 14:39 IMPRESSION: 1. Colitis probably infectious in nature 2. Mild cystitis 3. Mild gastritis 4. Incidental findings above Renal Ultrasound 01/03/25 15:16 IMPRESSION: 1. 2.6 similar left renal cyst. No hydronephrosis in either kidney. 2. 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 Labs Labs: Laboratory Tests 01/04/25 06:21 01/04/25 06:21 Calcium 8.1 L Total Bilirubin 0.5 AST 23 ALT 14 Alkaline Phosphatase 67 Total Creatine Kinase 49 L Total Protein 5.8 L Albumin 3.1 L Microbiology 01/01/25 13:42 Unspecified Urine - Preliminary Gram negative bacilli isolated 01/01/25 13:43 Stool Salmonella/Shigella Screen - Final 01/01/25 13:43 Stool Shiga Toxin (EIA) - Final
--- NOTE | 2025-01-04 12:03 | P.PNIM_ITS ---
Progress Note: A&P Assessment and Plan (1) Colitis: Code(s): K52.9 - Noninfective gastroenteritis and colitis, unspecified Status: Acute Assessment and Plan: CT showing Colitis probably infectious in nature Stool culture pending C diff negative Patient reports that he may have had undercooked chicken the night before symptoms that started a week ago. The salmonella and shigella are in the lab pending at this time. Patient denies ever having episodes of bloody diarrhea. (2) Gastritis: Code(s): K29.70 - Gastritis, unspecified, without bleeding Status: Acute Assessment and Plan: Carafate Protonix b.i.d. Compazine (3) ANATOLY (acute kidney injury): Code(s): N17.9 - Acute kidney failure, unspecified Status: Acute Assessment and Plan: Likely due from acute dehydration, which has been worsening with continued bouts of emesis and diarrhea for the past several nights Holding lisinopril, Lasix and metformin Cr 2.74 from 4.72 Contineu IVF monitor (4) UTI (urinary tract infection): Code(s): N39.0 - Urinary tract infection, site not specified Status: Acute Assessment and Plan: no urianry symptoms UTI ruled out monitor (5) Essential hypertension: Code(s): I10 - Essential (primary) hypertension Status: Acute Assessment and Plan: Hold antihypertensive medications at this time due to dehydration and resulting hypotension (6) CHF (congestive heart failure): Qualifiers: Heart failure type: unspecified Heart failure chronicity: unspecified Qualified Code(s): I50.9 - Heart failure, unspecified Code(s): I50.9 - Heart failure, unspecified Status: Acute Assessment and Plan: Patient has 1+ edema Holding Lasix Patient is able to drink water Contineu gentle rehydration (7) Atrial fibrillation: Code(s): I48.91 - Unspecified atrial fibrillation Status: Acute Assessment and Plan: Continue metoprolol Apixaban-renal dosing at this time due to kidney function (8) Diabetes mellitus type 2 in obese: Code(s): E11.69 - Type 2 diabetes mellitus with other specified complication; E66.9 - Obesity, unspecified Status: Acute Assessment and Plan: Hold home metformin Accu-Cheks a.c. HS SSI Plan 01/02: Patient had episode of severe diarrhea last night, very watery, which likely dropped his blood pressure requiring 500 mL fluid challenge which is so far successful in improving his blood pressure at this time. Blood pressure medications had to be held due to hypotension in the morning. Will add azithromycin 1 g divided in 2 doses to limit nausea risk for empiric treatment of diarrhea-this was exchanged for rifaximin due to patient have a prolonged QTC on EKG. 01/03: Patient reports additional episodes of emesis and diarrhea the night before, he received 1000 cc bolus last night, is getting 500 cc bolus for hypot ension this morning. Blood pressure is responding so far. However, repeat lab shows significant worsening of renal function with creatinine deteriorating to 4.72. Still consider cause to be severe dehydration from fluid loss associated with diarrhea and emesis. Nephrology has been consulted. Rifaximin to be continued for 1-2 more days but to be discontinued after that still no response. Subjective Date/time seen: 01/04/25 12:03 Interval history: Comfortable at bedside Noted diarrhea is improving, renal function improving too Review of Systems Review of Systems: 12 systems were reviewed and are negative except for as per HPI. Exam Narrative: General: ill appearing, appears stated age. Dehydrated. HEENT: normocephalic, atraumatic. EOMI, PERRLA, bilateral sclera anicteric, no conjunctival injection. Neck supple without JVD, lymphadenopathy, or bruit. Respiratory: clear to ascultation bilaterally. No rales/rhonic/wheezes. Cardiovascular: Regular rate and rhythm, normal S1-S2 upon ascultation. No murmurs, rubs, or clicks. PMI is nondisplaced, capillary refill less than 3 second. Abdomen: Soft, round, no pulsatile masses, nondistended and nontender. No rebound, no guarding.. Bowel sounds present to all four quadrants. No high pitch or tinkling sounds, resonant to percussion. Extremities: No cyanosis, clubbing, Pulses are palpable 2/2. Active ROM to all four extremities. 1+ edema Neuro: Alert and orientated x 4. PERRLA. Cranial nerves 2-12 intact without focal deficit. Skin: Warm, dry, and intact, without rash, erythema, or lesion. Psych: pleasant, cooperative, normal speech, normal affect, no hallucinations, no dysarthia Objective Data Vital Signs Vital Signs: Vital Signs - 24 hr 01/03/25 14:00 01/03/25 18:23 01/03/25 20:00 Temperature 96.6 F L Pulse Rate 80 Respiratory Rate 18 Blood Pressure 104/54 L 103/59 L Pulse Oximetry 98 Oxygen Delivery Room Air 01/03/25 22:00 01/04/25 05:02 01/04/25 08:00 Temperature 98.8 F 97.6 F Pulse Rate 80 81 Respiratory Rate 18 20 Blood Pressure 110/60 115/57 L Pulse Oximetry 97 97 Oxygen Delivery Room Air Intake/Output Intake/Output: Intake & Output 01/01/25 01/02/25 01/03/25 01/04/25 23:59 23:59 23:59 23:59 Intake Total 730 1378 2007.7 490 Output Total 400 201 150 Balance 330 1177 1857.7 490 Meds/Results Medications: Active Medications Generic Name Dose Route Start Last Admin Trade Name Freq PRN Reason Stop Dose Admin Amlodipine Besylate 5 mg 01/02/25 09:00 01/03/25 10:19 Amlodipine Besylate 5 Mg Tablet PO Not Given On Hold: 01/03/25 10:21 QAM MARIUSZ Apixaban 5 mg 01/03/25 21:00 01/04/25 09:40 Apixaban 5 Mg Tablet PO 5 mg Q12HR MARIUSZ Administration Atorvastatin Calcium 40 mg 01/01/25 21:20 01/03/25 20:34 Atorvastatin 40 Mg Tablet PO 40 mg HS MARIUSZ Administration Carvedilol 25 mg 01/01/25 21:20 01/03/25 10:19 Carvedilol 25 Mg Tablet PO Not Given On Hold: 01/03/25 10:20 Q12HR MARIUSZ Dextrose 12.5 gm 01/01/25 15:56 Dextrose 50% 25 Gm/50 Ml Syringe IV PUSH PRN PRN Hypoglycemia Protocol Glucagon 1 mg 01/01/25 15:56 Glucagon For Inj 1 Mg Vial IM PRN PRN Hypoglycemia Protocol Glucose 15 gm 01/01/25 15:56 Glucose Oral Gel 15 Gm Of Glucse In 37.5 Gm Tube PO PRN PRN Hypoglycemia Protocol Dextrose 1,000 mls @ 100 mls/hr 01/01/25 15:56 Dextrose 5% 1,000 Ml IVPB PRN PRN Hypoglycemia Protocol Sodium Chloride 1,000 mls @ 50 mls/hr 01/03/25 05:05 01/03/25 23:18 Normal Saline Iv IV CONT Not Given .Q20H [facility] Insulin Aspart 2 - 5 units 01/01/25 17:00 01/04/25 09:39 Insulin Aspart (*Bkc) 100 Units/Ml SUB-Q Not Given TIDWM [facility] Protocol Insulin Aspart 1 - 2 units 01/01/25 21:00 01/03/25 21:13 Insulin Aspart (*Bkc) 100 Units/Ml SUB-Q Not Given HS [facility] Protocol Loperamide HCl 2 mg 01/01/25 15:50 01/03/25 20:33 Loperamide Hcl 2 Mg Capsule PO 2 mg Q6HR PRN Administration Diarrhea Non-Formulary ( 1 each 01/02/25 21:00 01/03/25 10:19 Dofetilide 500 Mcg PO 02/01/25 20:59 Not Given Oral Capsule) Q12HR MARIUSZ On Hold: 01/03/25 10:21 Pantoprazole Sodium 40 mg 01/01/25 21:00 01/04/25 09:40 Pantoprazole Sodium Iv 40 Mg Vial IV PUSH 40 mg Q12HR MARIUSZ Administration Rifaximin 200 mg 01/03/25 09:00 01/04/25 09:40 Rifaximin 200 Mg Tablet PO 200 mg DAILY MARIUSZ Administration Simethicone 80 mg 01/03/25 21:00 01/04/25 09:40 Simethicone 80 Mg Tab.Chew PO 80 mg QID MARIUSZ Administration Sucralfate 1,000 mg 01/01/25 16:30 01/04/25 10:18 Sucralfate Susp 100 Mg/Ml 10 Ml Udc PO Not Given ACHS [facility] Trimethobenzamide HCl 200 mg 01/01/25 21:37 01/02/25 22:34 Trimethobenzamide Hcl 200 Mg/2 Ml Vial IM 200 mg Q6H PRN Administration Nausea And Vomiting Radiology Results: ITS Impressions Abdomen/Pelvis CT 01/01/25 14:39 IMPRESSION: 1. Colitis probably infectious in nature 2. Mild cystitis 3. Mild gastritis 4. Incidental findings above Renal Ultrasound 01/03/25 15:16 IMPRESSION: 1. 2.6 similar left renal cyst. No hydronephrosis in either kidney. 2. 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 Labs Labs: Laboratory Results - last 24 hr 01/03/25 01/03/25 01/03/25 14:52 14:52 16:23 WBC RBC Hgb Hct MCV MCH MCHC RDW Plt Count MPV Immature Gran % (Auto) Neut % (Auto) Lymph % (Auto) [place] % (Auto) Eos % (Auto) Baso % (Auto) Lymph # (Auto) [place] # (Auto) Eos # (Auto) Baso # (Auto) Abs Immat Gran (auto) Absolute Neuts (auto) Absolute Nucleated RBC Nucleated RBC % Sodium Potassium Chloride Carbon Dioxide Anion Gap BUN Creatinine Estim Creat Clear Calc Estimated GFR Glucose POC Capillary Glucose 84 Calcium Total Bilirubin AST ALT Alkaline Phosphatase Total Creatine Kinase Total Protein Albumin Urine Eosinophils None seen U Random Total Protein 50 Ur Random Sodium 8 Ur Random Urea 413 Urine Creatinine 308.6 313.0 Protein/Creat Ratio 2 0.16 Hep Bs Antigen Hep Bs Antibody Hep B Core Total Ab 01/03/25 01/04/25 01/04/25 20:52 06:21 07:22 WBC 11.7 H RBC 4.84 Hgb 15.2 Hct 45.0 MCV 93.0 MCH 31.4 MCHC 33.8 RDW 13.4 Plt Count 169 MPV 10.5 H Immature Gran % (Auto) 2.5 H Neut % (Auto) 53.7 Lymph % (Auto) 18.2 L [place] % (Auto) 12.7 H Eos % (Auto) 12.5 H Baso % (Auto) 0.4 Lymph # (Auto) 2.13 [place] # (Auto) 1.5 H Eos # (Auto) 1.5 H Baso # (Auto) 0.1 Abs Immat Gran (auto) 0.29 H Absolute Neuts (auto) 6.3 Absolute Nucleated RBC 0.000 Nucleated RBC % 0.0 Sodium 134 L Potassium 3.6 Chloride 107 Carbon Dioxide 16 L Anion Gap 11 BUN 51 H Creatinine 2.74 H Estim Creat Clear Calc 26 Estimated GFR 23 L Glucose 94 POC Capillary Glucose 140 H 94 Calcium 8.1 L Total Bilirubin 0.5 AST 23 ALT 14 Alkaline Phosphatase 67 Total Creatine Kinase 49 L Total Protein 5.8 L Albumin 3.1 L Urine Eosinophils U Random Total Protein Ur Random Sodium Ur Random Urea Urine Creatinine Protein/Creat Ratio 2 Hep Bs Antigen Negative Hep Bs Antibody Negative Hep B Core Total Ab Cancelled 01/04/25 11:28 WBC RBC Hgb Hct MCV MCH MCHC RDW Plt Count MPV Immature Gran % (Auto) Neut % (Auto) Lymph % (Auto) [place] % (Auto) Eos % (Auto) Baso % (Auto) Lymph # (Auto) [place] # (Auto) Eos # (Auto) Baso # (Auto) Abs Immat Gran (auto) Absolute Neuts (auto) Absolute Nucleated RBC Nucleated RBC % Sodium Potassium Chloride Carbon Dioxide Anion Gap BUN Creatinine Estim Creat Clear Calc Estimated GFR Glucose POC Capillary Glucose 182 H Calcium Total Bilirubin AST ALT Alkaline Phosphatase Total Creatine Kinase Total Protein Albumin Urine Eosinophils U Random Total Protein Ur Random Sodium Ur Random Urea Urine Creatinine Protein/Creat Ratio 2 Hep Bs Antigen Hep Bs Antibody Hep B Core Total Ab Quality VTE Prophylaxis VTE prophylaxis: mechanical ordered and pharmacologic ordered
[2025-01-04] MEDS: SODIUM CHLORIDE 0.9% IV 1,000 ML 50 ML IV CONT (12:24)
[2025-01-04 13:55] VITALS: BP 123/56; PULSE 80; RESP 18; TEMP 36.2; O2SAT 99
[2025-01-04 19:59] VITALS: BP 122/60; PULSE 83; RESP 18; TEMP 36.2; O2SAT 97
[2025-01-04 20:46] VITALS: PULSE 83; RESP 18; O2SAT 97
[2025-01-04] MEDS: ATORVASTATIN 40 MG TABLET PO (20:46)
[2025-01-05 05:20] VITALS: BP 137/74; PULSE 71; RESP 16; TEMP 36.6; O2SAT 98
[2025-01-05 06:30] LABS: Hematocrit 45.5 % (42.0-52.0); Hemoglobin 15.0 g/dL (14.0-18.0); Mean Corpuscular HGB Conc 33.0 g/dl (32-36); Mean Corpuscular Hemoglobin 31.1 pg (26-34); Mean Corpuscular Volume 94.4 fl (80-100); Platelet Count Result 176 k/mm3 (150-375); Red Blood Count 4.82 M/mm3 (4.6-6.20); White Blood Count 10.2 K/mm3 (4.5-10.0)
[2025-01-05 06:54] LABS: Alanine Aminotransferase 16 U/L (6-50); Albumin Level 3.1 g/dL (3.5-5.1); Alkaline Phosphatase 80 U/L (38-126); Anion Gap 8 mmol/L (4-12); Aspartate Amino Transferase 27 U/L (17-59); Bilirubin,Total 0.4 mg/dL (0.2-1.3); Blood Urea Nitrogen 23 mg/dL (9-20); Calcium 8.6 mg/dL (8.4-10.2); Carbon Dioxide 22 mmol/L (22-30); Chloride 110 mmol/L (98-107); Estimated CRCL calculation 52 ml/min; Estimated Glomerular Filt Rate 52; Glucose 125 mg/dL (65-110); Magnesium 2.0 mg/dL (1.6-2.3); Potassium 3.9 mmol/L (3.4-5.0); Sodium 140 mmol/L (137-145); Total Protein 6.0 g/dL (6.3-8.2)
[2025-01-05 06:56] LABS: Band Neutrophils Percent 5 % (0-6); Eosinophils Absolute Manual 1.32 K/mm3 (0.02-0.50); Eosinophils Percent Manual 13 % (0-4); Lymphocytes Absolute Manual 2.24 K/mm3 (1.1-4.5); Lymphocytes Percent Manual 22 % (18-44); Monocytes Absolute Manual 0.40 K/mm3 (0.1-0.90); Monocytes Percent Manual 4 % (3-9); Neutrophils Absolute Manual 6.22 K/mm3 (1.3-6.7); Neutrophils Percent Manual 56 % (46-73); Total Cells Counted 100
[2025-01-05 06:57] LABS: Anisocytosis 1+; Burr Cells 1+; Schistocytes None Seen; Smudge Cells FEW
[2025-01-05] MEDS: SODIUM CHLORIDE 0.9% IV 1,000 ML 50 ML IV CONT (08:18)
[2025-01-05] MEDS: APIXABAN 5 MG TABLET PO (08:19)
[2025-01-05] MEDS: SIMETHICONE 80 MG TAB.CHEW PO ×2 (08:19→12:40)
[2025-01-05] MEDS: PANTOPRAZOLE SODIUM IV 40 MG VIAL IV PUSH (08:20)
[2025-01-05 09:09] LABS: Hep B Core Ab, Total Negative (Negative)
--- NOTE | 2025-01-05 12:42 | P.DS_ITS ---
DS: Admitting Diagnosis Discharge Date 01/05/2025 Admitting Diagnosis Nausea vomiting diarrhea DS: Discharge Diagnosis Discharge Diagnosis (1) Acute kidney injury: Code(s): N17.9 - Acute kidney failure, unspecified Status: Acute (2) Gastritis: Code(s): K29.70 - Gastritis, unspecified, without bleeding Status: Acute DS: Summary Hospital Course Hospital Course: 79-year-old male past medical history of diabetes, pacemaker, hyperlipidemia, hypertension congestive heart failure presents the hospital with profuse nausea vomiting and diarrhea. CT AP showed Mild cystitis, gastritis and Colitis. Cr 4.72 on admission Patient was managed for gastritis with IVF, Cystitis with Rocephin and Jaret with IVF fluids. Diarrhea markedly improved and Creatinine improved to 1.34 Urine culture positive for GNB however since patient is improving on [place] he is discharged on Cefdinir for 3 more days Tolerating diet today and self ambulatory F/u with PCP in 3-5 days Time Spent with Patient Time attestation: Total time spent providing and/or coordinating discharge services: DS: Data Data Completed and Pending Labs on day of discharge: Labs from last 24 hours 01/05/25 01/05/25 01/05/25 11:45 08:01 05:46 WBC 10.2 H RBC 4.82 Hgb 15.0 Hct 45.5 MCV 94.4 MCH 31.1 MCHC 33.0 RDW 13.2 Plt Count 176 MPV 10.8 H Immature Gran % (Auto) Not Reportable Neut % (Auto) Not Reportable Lymph % (Auto) Not Reportable [place] % (Auto) Not Reportable Eos % (Auto) Not Reportable Baso % (Auto) Not Reportable Lymph # (Auto) Not Reportable [place] # (Auto) Not Reportable Eos # (Auto) Not Reportable Baso # (Auto) Not Reportable Abs Immat Gran (auto) Not Reportable Absolute Neuts (auto) Not Reportable Absolute Nucleated RBC Not Reportable Total Counted 100 Neutrophils % (Manual) 56 Band Neutrophils % 5 Lymphocytes % (Manual) 22 Monocytes % (Manual) 4 Eosinophils % (Manual) 13 H Nucleated RBC % Not Reportable Abs Neuts (Manual) 6.22 Abs Lymphs (Manual) 2.24 Abs Monocytes (Manual) 0.40 Absolute Eos (Manual) 1.32 H [place] Cells Few Platelet Estimate Adequate Anisocytosis 1+ [place] Cells 1+ Schistocytes None seen Sodium 140 Potassium 3.9 Chloride 110 H Carbon Dioxide 22 Anion Gap 8 BUN 23 H D Creatinine 1.34 H Estim Creat Clear Calc 52 Estimated GFR 52 L Glucose 125 H POC Capillary Glucose 157 H 128 H Calcium 8.6 Magnesium 2.0 Total Bilirubin 0.4 AST 27 ALT 16 Alkaline Phosphatase 80 Total Protein 6.0 L Albumin 3.1 L Hep B Core Total Ab 01/04/25 01/04/25 01/04/25 19:47 16:18 06:21 WBC RBC Hgb Hct MCV MCH MCHC RDW Plt Count MPV Immature Gran % (Auto) Neut % (Auto) Lymph % (Auto) [place] % (Auto) Eos % (Auto) Baso % (Auto) Lymph # (Auto) [place] # (Auto) Eos # (Auto) Baso # (Auto) Abs Immat Gran (auto) Absolute Neuts (auto) Absolute Nucleated RBC Total Counted Neutrophils % (Manual) Band Neutrophils % Lymphocytes % (Manual) Monocytes % (Manual) Eosinophils % (Manual) Nucleated RBC % Abs Neuts (Manual) Abs Lymphs (Manual) Abs Monocytes (Manual) Absolute Eos (Manual) [place] Cells Platelet Estimate Anisocytosis [place] Cells Schistocytes Sodium Potassium Chloride Carbon Dioxide Anion Gap BUN Creatinine Estim Creat Clear Calc Estimated GFR Glucose POC Capillary Glucose 166 H 148 H Calcium Magnesium Total Bilirubin AST ALT Alkaline Phosphatase Total Protein Albumin Hep B Core Total Ab Negative Preliminary micro results at discharge 01/01/25 13:42 - Preliminary Unspecified Urine Gram negative bacilli isolated Discharge Plan Discharge Attending physician on discharge: Ruddy Pham Consulting providers: Vandana Bobby Discharging Clinician: Ruddy Pham Anticipated Discharge Date/Time: 01/05/25 12:24 Patient Disposition: Home Activity: as tolerated Diet: as tolerated and low fiber Patient Instructions: Antibiotic Form Patient Language: [place] Stand Alone Forms: General Discharge Information Follow-up/Referrals: Cory,MD Lucio [Primary Care Provider] Referral Note: F/u with PCP in 3-5 days Vandana Bobby MD [Physician, Nephrology] Referral Note: F/u with Nephrology as instructed Discharge Medications: New cefdinir 300 mg capsule 300 mg PO Q12H 3 Days Qty: 6 0RF Continued pantoprazole [Protonix] 40 mg tablet,delayed release (DR/EC) 40 mg PO HS 28 Days Qty: 28 0RF furosemide 40 mg tablet 40 mg PO QAM atorvastatin 40 mg tablet 40 mg PO HS carvedilol 25 mg tablet 25 mg PO BID lisinopril 20 mg tablet 20 mg PO BID amlodipine 5 mg tablet 5 mg PO QAM allopurinol 100 mg tablet 100 mg PO QAM PRN (Reason: gout) glimepiride 4 mg tablet 4 mg PO QACLUNCH metformin 500 mg tablet extended release 24 hr 500 mg PO BID Eliquis 5 mg tablet 5 mg PO BID dofetilide 500 mcg capsule 500 mcg PO Q12H Date of admission: 01/02/25 15:19 Primary Care Provider: GretaLucio Admitting Provider: Angela Thomas Attending physician on admission: Angela Thomas Condition: Improved
== END 2025-01-05 13:35 | disposition home or self-care (01) | DRG 683 ==
LOC: ANHED 15:17 → ANH3MEDSUR 16:05
PROVIDERS: Emergency Medicine; Internal Medicine Nephrology; Student in an Organized Health Care Education/Training Program; Admitting Provider Family Medicine; Emergency Provider Emergency Medicine; PCP Internal Medicine; Visit Provider Internal Medicine
DX: N17.9 Acute kidney failure, unspecified (principal); I48.20 Chronic atrial fibrillation, unspecified; N39.0 Urinary tract infection, site not specified; K52.9 Noninfective gastroenteritis and colitis, unspecified; E86.0 Dehydration; K29.70 Gastritis, unspecified, without bleeding; I11.0 Hypertensive heart disease with heart failure; I50.9 Heart failure, unspecified; E78.5 Hyperlipidemia, unspecified; Z79.01 Long term (current) use of anticoagulants; Z79.4 Long term (current) use of insulin; Z95.0 Presence of cardiac pacemaker
CPT/HCPCS: 36415; 74177; 76770; 80053; 81001; 82550; 82570; 82948; 83690; 83735; 84156; 84300; 84540; 85025; 85999; 86704; 86706; 87045; 87046; 87086; 87186; 87340; 87427; 87493; 93005; 96361; 96365; 96375; 99285; A9270; G0378; J0696; J1200; J1815; J2470; J2765; J3250; J7030; J7040; J7120; Q9967